=== PATIENT | female | born 1935 | race Caucasian/White ===

== ENCOUNTER → 2024-01-20 11:32 | Outpatient (REF) | payer MEDICARE, OTHER, SELFPAY ==
[2024-01-20 13:01] LABS: Blood Urea Nitrogen 27 mg/dl (7-17); Calcium 9.5 mg/dl (8.4-10.2); Carbon Dioxide 26 mmol/L (22-30); Chloride 104 mmol/L (98-107); Glucose 102 mg/dl (70-99); Potassium 4.6 mmol/L (3.5-5.1); Sodium 139 mmol/L (135-145); eGFR 30.83
== END ==
LOC: REG 11:32
PROVIDERS: ATTENDING PHYSICIAN Nurse Practitioner Adult Health
DX: I10 Essential (primary) hypertension (principal)
CPT/HCPCS: 36415; 80048

== ENCOUNTER 2024-06-12 23:06 | Observation (INO) | payer MEDICARE, OTHER, SELFPAY ==
[2024-06-12 18:25] VITALS: BMI 23.1
[2024-06-12 18:27] VITALS: BP 198/85
--- NOTE | 2024-06-12 19:41 | ED.GENMED ---
History of Present Illness
<Clemencia Duke PA-C - Last Filed: 06/12/24 23:45>
General
Chief Complaint: Musculo-Skeletal Complaint
Source: patient
Exam Limitations: none
Time Seen by Provider: 06/12/24 19:39
Nursing documentation reviewed up to this point in time: agreed with
History of Present Illness
History of Present Illness:
This is a 88 y/o female with a PMH of CAD, HTN, GERD, diverticulitis presenting to the emergency department with concerns of left low back pain radiating into the left hip. This pain started 5 days ago. Patient does not have a lot of pain at rest
but has significant pain with ambulating. Patient has been alternating Tylenol and Advil for the past 3 days with no relief. Patient states that she has no history of falls, trauma to the area. Patient resides in a duplex with her disabled son and
states that when she tries to go up the stairs, she has significant pain. Her bedroom is on the second floor and in order to get into her home at all, she has to climb a flight of stairs. Patient states that she has no pain at rest lying in bed
but will come on when ambulating. Patient denies any weakness, lightheadedness, dizziness. Patient denies any chest pain or shortness of breath. Patient denies any dysuria, hematuria. Patient denies any saddle paresthesias, new urinary
incontinence, fecal incontinence. Patient denies recent IV infusions, injections, orthopedic surgery, fevers or chills.
Past History
<Clemencia Duke PA-C - Last Filed: 06/12/24 23:45>
Past History
ED Past Medical History: CAD, HTN, Hypercholesterolemia, NIDDM and Other (Anemia)
ED Past Surgical History: Cholecystectomy, Urological (Kidney stents X3 on R and one in the L,) and Other (tubal, Carotid endarterectomy)
Social History
Tobacco: Former smoker
Alcohol: Occasional
Drug: None
Personal:
Living: with family
Employment: Retired
Family History
Family History: Other (Noncontributory)
Review of Systems
<Clemencia Duke PA-C - Last Filed: 06/12/24 23:45>
Review of Systems
All Other Systems: ROS reviewed and negative except as documented in HPI and ROS
Phy Exam
<Clemencia Duke PA-C - Last Filed: 06/12/24 23:45>
Physical Exam
Physical Exam:
General: Patient is well appearing and in no acute distress; non-toxic
Skin: Warm and dry, scattered areas of ecchymosis on the left lateral thigh
Head: Normocephalic, atraumatic
Eyes: Sclera non-icteric. EOMs intact. PERRLA.
Cardiac: Regular rate
Peripheral Vascular: No lower extremity swelling or
Pulm: Normal respiratory effort
Abdomen: No abdominal tenderness to palpation
Musculoskeletal: No pain with full passive range of motion of the left hip. 2+ dorsalis pedis pulses bilaterally. Mild midline tenderness palpation of the lumbar spine and paralumbar muscles.
Neuro: CN II-XII intact, no focal neurologic deficits.
Psychiatric: Appropriate mood and affect.
Course
<Clemencia Duke PA-C - Last Filed: 06/12/24 23:45>
Orders/Labs/Results
Orders:
Orders
06/12/24 18:59
Hip, Left 2-3 Views [CR Hip - LT w/wo Pel 2-3 Vw*] Urgent
Comment:
Reason For Exam: hip pain
Include a pelvis x-ray?: Yes
06/12/24 19:58
CR Lumbar Spine 2 Or 3 Views Urgent
Comment:
Reason For Exam: lower back pain
06/12/24 21:54
Complete Blood Count/With Diff Urgent
Comprehensive Metabolic Panel Urgent
06/12/24 22:13
Carvedilol [Coreg] 6.25 mg PO NOW STA
06/12/24 22:25
Admit/Transfer Patient As Directed
Co-Sign Provider:
Level of Care: Observation services
Assign to:: Medical/Surgical
Physician / Group: dalia
Diagnosis: hip pain
06/12/24 22:26
Code Status As Directed
Resuscitation Status: Full Code
Abnormal Lab Results
06/12/24
21:54
RBC 3.91 L 10^6/uL
(4.20-5.40)
Hgb 11.9 L g/dL
(12.0-16.0)
Hct 35.0 L %
(37.0-47.0)
Absolute Monos (auto) 0.7 H 10^3/uL
(0.1-0.6)
Chloride 108 H mmol/L
(98-107)
BUN 40 H mg/dl
(7-17)
Creatinine 1.9 H mg/dL
(0.6-1.0)
06/12/24 21:54
06/12/24 21:54
Vital Signs
Initial and Last Documented VS:
Initial Vital Signs
Temp Pulse Resp BP Pulse Ox
97.9 F 71 18 198/85 95
06/12/24 18:27 06/12/24 18:27 06/12/24 18:27 06/12/24 18:27 06/12/24 18:27
Last Documented Vital Signs
Temp Pulse Resp BP Pulse Ox
97.9 F 77 22 202/81 99
06/12/24 18:27 06/12/24 22:36 06/12/24 21:30 06/12/24 22:36 06/12/24 21:30
[place];Heron Garcia DO - Last Filed: 06/12/24 21:32>
Orders/Labs/Results
Orders:
Orders
06/12/24 18:59
Hip, Left 2-3 Views [CR Hip - LT w/wo Pel 2-3 Vw*] Urgent
Comment:
Reason For Exam: hip pain
Include a pelvis x-ray?: Yes
06/12/24 19:58
CR Lumbar Spine 2 Or 3 Views Urgent
Comment:
Reason For Exam: lower back pain
06/12/24 21:54
Complete Blood Count/With Diff Urgent
Comprehensive Metabolic Panel Urgent
06/12/24 22:13
Carvedilol [Coreg] 6.25 mg PO NOW STA
06/12/24 22:25
Admit/Transfer Patient As Directed
Co-Sign Provider:
Level of Care: Observation services
Assign to:: Medical/Surgical
Physician / Group: dalia
Diagnosis: hip pain
06/12/24 22:26
Code Status As Directed
Resuscitation Status: Full Code
Abnormal Lab Results
06/12/24
21:54
RBC 3.91 L 10^6/uL
(4.20-5.40)
Hgb 11.9 L g/dL
(12.0-16.0)
Hct 35.0 L %
(37.0-47.0)
Absolute Monos (auto) 0.7 H 10^3/uL
(0.1-0.6)
Chloride 108 H mmol/L
(98-107)
BUN 40 H mg/dl
(7-17)
Creatinine 1.9 H mg/dL
(0.6-1.0)
06/12/24 21:54
06/12/24 21:54
Vital Signs
Initial and Last Documented VS:
Initial Vital Signs
Temp Pulse Resp BP Pulse Ox
97.9 F 71 18 198/85 95
06/12/24 18:27 06/12/24 18:27 06/12/24 18:27 06/12/24 18:27 06/12/24 18:27
Last Documented Vital Signs
Temp Pulse Resp BP Pulse Ox
97.9 F 77 22 202/81 99
06/12/24 18:27 06/12/24 22:36 06/12/24 21:30 06/12/24 22:36 06/12/24 21:30
<Clemencia Duke PA-C - Last Filed: 06/12/24 23:45>
MDM/Problems Addressed
Differential Diagnosis Includes:
Differentials include sciatica, gluteus sherry muscle strain, osteoarthritis, herniated nucleus pulposus, ligamentous injury
MDM/Problems Addressed:
Hip pain:
This is a 88 y/o female with a PMH of CAD, HTN, GERD, diverticulitis presenting to the emergency department with concerns of left low back pain radiating into the left hip. This pain started 5 days ago. Patient does not have a lot of pain at rest
but has significant pain with ambulating. Patient has been alternating Tylenol and Advil for the past 3 days with no relief. Patient states that she has no history of falls, trauma to the area. On exam, she has no pain with full passive range of
motion of the hip. We ambulated with her but she is very unsteady on her fee Considering patient has declined stairs to get to her home and feels very unsteady, we will keep her overnight for physical therapy and case management evaluation in the
morning. Her x-rays demonstrate mild degenerative changes of the left hip with no evidence of acute fracture or dislocation, and multilevel degenerative changes of the spine but no new fracture. Patient referred to hospitalist for admission.
Chronic conditions affecting care:
Osteoarthritis, coronary artery disease, hypertension, hyperlipidemia, diabetes
Acute Exacerbation and/or Progression of Chronic Illness:
osteoarthritis
<Clemencia Duke PA-C - Last Filed: 06/12/24 23:45>
*Radiology
Radiology exam reviewed: preliminary read by ED provider (Questionable compression fracture of the spine, no acute fracture or dislocation in the hip)
*Pulse Oximetry
Patient hypoxic: no
*Critical Care Note
Total Time (30-74mins, 75-104mins- exclusive of procedures): Not Applicable
Data Reviewed
Review of Other/Old Records Reveals: Records (Reviewed ER physician documentation from 10/26/2021)
Source: patient and records
Prescriptions/Medications Considered But Not Given:
considered medication for pain but patient states that she is comfortable at rest at this time
Further Testing Considered But Not Given:
n/a
<Clemencia Duke PA-C - Last Filed: 06/12/24 23:45>
Patient Management
Escalation/DeEscalation of care consider admission/obs:
admit indicated
ED Attending Note
<Clemencia Duke PA-C - Last Filed: 06/12/24 23:45>
-
Portions of this chart may have been created with voice recognition software.� Occasional wrong word or��sound alike� substitutions may have occurred due to the inherent limitations of voice recognition software.
<Heron Garcia DO - Last Filed: 06/12/24 21:32>
ED Attending Note
Patient seen and examined by attending physician: Yes
I performed the substantive portion of visit, reviewed & personally made and approve the management plan that is documented in note by myself or GENE.: Yes
ED Attending Note:
Patient is an 88-year-old female presents to the emergency department complaining of low back pain radiating down into her left lower extremity and being unsteady and unable to climb stairs really walk without assistance. Pain started approximately
5 days ago and has gotten progressively worse. Patient denies any previous history of similar pain or incident. Patient did have back surgery after falling few years ago. Patient denies fever or chills. Patient denies numbness paresthesias.
Physical exam patient has mild tenderness in the left buttock. No hip tenderness and hip range of motion is full. Patient walking is very unsteady and has difficulty. Patient is unable to ambulate without assistance. Patient does live in a 4
level split-level with her disabled 57-year-old son. Patient has extensive osteoporosis and osteoarthritis. Given the patient's essentially nonambulatory status will admit for placement since unable to place the patient now.
Discharge Plan
Departure
Patient Disposition: Admit
Date of Disposition: 06/12/24
Time of Disposition: 21:26
Presentation/result/management discussed w/ accepting MD/DO: Hospitalist
Patient with high blood pressure during this ER visit?: Yes
Condition: Fair
Discharge Problem:
Ambulatory dysfunction, Osteoarthritis
Interventions
Interventions:
*General Assessment Last Done: 06/12/24 18:27
ED- Fall Risk Assessment Last Done: 06/12/24 19:26
*ED COVID-19 Vaccine History Last Done: 06/12/24 18:27
ED-Musculoskeletal Assessment Last Done: 06/12/24 19:26
[2024-06-12 21:30] VITALS: BP 202/81
[2024-06-12 21:58] LABS: % Basophils 0.8 % (0-2); % Eosinophils 4.6 % (0-6); % Immature Granulocytes 0.2 % (0-0.5); % Monocytes 8.6 % (1.7-9.3); % Neutrophils 63.8 % (42.2-75.2); Absolute Basophils 0.1 10^3/uL (0-0.2); Absolute Eosinophils 0.4 10^3/uL (0-0.7); Absolute Lymphocytes 1.8 10^3/uL (1.2-3.4); Absolute Monocytes 0.7 10^3/uL (0.1-0.6); Absolute Neutrophils 5.3 10^3/uL (1.4-6.5); Hemoglobin 11.9 g/dL (12.0-16.0); Mean Corpuscular Hgb 30.4 pg (27.0-31.0); Mean Corpuscular Volume 89.5 fL (81.0-99.0); Mean Platelet Volume 9.7 fL (7.4-10.4); Nucleated Red Blood Cells % 0 %; Platelet Count 200 10^3/uL (130-400); Red Blood Cell Count 3.91 10^6/uL (4.20-5.40); Red Cell Dist. Width 14.3 % (11.5-14.5); White Blood Cell Count 8.3 10^3/uL (4.8-10.8)
--- NOTE | 2024-06-12 22:01 | HPS.HSE ---
Addendum entered and electronically signed by Lazaro Siddiqi DO 06/12/24 23:41:
Patient seen and examined independently. Agree with findings and plan as set forth by FABI Martinez.
Patient is an 88y F with PMH significant for ASCVD, hypertension and dyslipidemia who presents to ED complaining of L low back / buttock pain. Patient states that symptoms started on Saturday evening. She denies any specific injury or trauma
prior to onset of her pain. Patient states that pain is over the L buttock with radiation down the entire LLE and into the foot / toes. Pain is much less severe when at rest / supine but is most notable when standing / bearing weight on the LLE.
Patient has been unable to ambulate as a result of her symptoms.
Ass:
L Hip Pain
Ambulatory Dysfunction secondary to the above
ASCVD
Benign Hypertension
Anxiety / Depression
GERD
CKD III
Plan:
Observe overnight for further evaluation and treatment.
Pain control, PT / OT evaluations.
Imaging done in the ED so far is unremarkable.
Continue usual outpatient medications without changes.
Original Note:
Family Physician
-
Family Physician: Chacorta Solis
Chief Complaint
-
left hip pain
History of Present Illness
88-year-old management of a history of coronary artery disease, hypertension, hyperlipidemia presented to us with left lower back pain radiating to her left hip and left lower extremities for past 5 days. Patient denied any trauma. Patient cannot
place any pressure on her leg. She is not able to walk because of the pain. Denied headache dizziness or syncopal episode. Patient denied fever, chills, chest pain short of breath. Patient denied abdominal pain, nausea, vomiting, diarrhea.
Patient denied dysuria hematuria
Admitting for further management
Medical History
Past Medical History
Past Medical History: Reports Other
Additional Past Medical History:
Coronary artery disease
Hypertension
Hyperlipidemia
Spinal stenosis
Major depression
Anxiety
Past Surgical History: Reports Other
Additional Past Surgical History:
Cholecystectomy
Carotid endarterectomy
Tonsillectomy
Adenoidectomy
Social History
Tobacco: Non-smoker
Alcohol: None
Drug: None
Personal: Single
Living: With Family
Family History
Family History: Not pertinent
Allergies / Home Medications
Allergies reflects when Allergies were last updated in [facility].
Home Medications with original date entered in [facility]
Allergy/Medication List:
Allergies
Allergy/AdvReac Type Severity Reaction Status Date / Time
cefuroxime axetil Allergy Intermediate Rash Verified 06/12/24 18:29
[From Ceftin]
codeine Allergy Hives Verified 06/12/24 18:29
Iodinated Contrast Media Allergy Hives Verified 06/12/24 18:29
[IV Dye, Iodine Containing
Contrast ]
iodine Allergy Hives Verified 06/12/24 18:29
shellfish derived Allergy Unknown Verified 06/12/24 18:29
spironolactone Allergy Itching Verified 06/12/24 18:29
[From Aldactone]
Home Medications
rosuvastatin 10 mg tablet 10 mg PO DAILY@1200 High cholesterol 07/03/12
aripiprazole 2 mg tablet 2 mg PO HS ##30 02/10/16
Bifidobacterium infantis 4 mg capsule (Align) 4 mg PO HS Gastrointestinal issue 05/03/20
acetaminophen 325 mg tablet 325 mg PO Q4HPRN PRN mild pain 05/03/20
cholecalciferol (vitamin D3) 25 mcg (1,000 unit) tablet 1,000 units PO DAILY@1200 Supplement 05/03/20
latanoprost 0.005 % eye drops 1 drp LEFT EYE HS Eye condition 05/03/20
mirtazapine 15 mg tablet 7.5 mg PO HS Sleep 05/03/20
pantoprazole 40 mg tablet,delayed release 40 mg PO DAILY Gastrointestinal issue 05/03/20
venlafaxine 25 mg tablet 25 mg PO BID Mental Health/Anxiety 05/03/20
vit C 250 mg-vit E 90 mg-zinc 40 mg-copper 1 xi-pucidp-qlycge capsule (PreserVision AREDS-2) 1 ea PO BID Supplement 05/03/20
amlodipine 10 mg tablet (Norvasc) 10 mg PO DAILY #30 tabs 05/07/20
aspirin 81 mg tablet,delayed release 1 tab PO DAILY Blood clot prevention/tx ##30 05/07/20
carvedilol 6.25 mg tablet 6.25 mg PO BID #60 tabs 05/07/20
clopidogrel 75 mg tablet 75 mg PO DAILY@1200 Blood clot prevention/tx ##0 05/07/20
docusate sodium 100 mg capsule 100 mg PO BID 05/07/20
polyethylene glycol 3350 17 gram oral powder packet 17 grams PO DAILY 05/07/20
methylprednisolone 4 mg tablets in a dose pack (Medrol (Grant)) See Rx Instructions PO .COMPLEX #21 ea 06/12/24
oxycodone-acetaminophen 5 mg-325 mg tablet (Percocet) 1 tab PO Q6HPRN PRN pain #8 tabs 06/12/24
Review of Systems
-
Constitutional: Reports No Symptoms
EENT: Reports No Symptoms
Respiratory: Reports No Symptoms
Cardiac: Reports No Symptoms
Abdomen/GI: Reports No Symptoms
: Reports No Symptoms
Musculoskeletal: Reports Other (Left sided hip pain radiating to her left lower extremities)
Skin: Reports No Symptoms
Neurological: Reports No Symptoms
Endocrine: Reports No Symptoms
Hematologic/Lymphatic: Reports No Symptoms
Psych: Reports No Symptoms
Physical Exam
Vital Signs
Vital Signs
Temp Pulse Resp BP Pulse Ox
97.9 F 77 22 202/81 99
06/12/24 18:27 06/12/24 21:30 06/12/24 21:30 06/12/24 21:30 06/12/24 21:30
Physical Exam
General: Well Developed, Well Nourished and No Apparent Distress
HEENT: NormoCephalic, Moist mucous membranes and Atraumatic
Respiratory: Clear
Cardiac: S1/S2 and Regular Rhythm; No Murmur or Rub
GI: Soft, Non Tender, Non Distended and Normal Bowel Sounds; No Organomegaly
Rectal: Deferred by Provider
Musculoskeletal: No Clubbing, No Cyanosis and No Edema
Skin: No Rash
Neuro: AO x 3 and Nonfocal/grossly intact
Psych: Calm
Data Reviewed
-
Diagnostic Radiology: Report Reviewed by me
CT Scan: Report Reviewed by me
Lab Data: Labs Reviewed by me
Impression/Plan
-
# Left hip pain
-Lumbar spine x-ray with impression postoperative and multilevel degenerative changes of the lumbar spine without acute fracture or complication. Mild degenerative changes of the left hip.
-Hip x-ray with impression of Postoperative and multilevel degenerative changes of the lumbar spine without acute fracture or complication. Mild degenerative changes of the left hip.
-PT/OT consulted
-lidocaine patch
-Tylenol ATC
#Hypertension
-BP elevated in ER
-Coreg 6.25 now
-Coreg, losartan continued with hold parameters
#Hyperlipidemia
-Crestor continued
#Depression and anxiety
- Continue home medication of Abilify and venlafaxine
#GERD
-Protonix
#s/p carotid endarterectomy
-Plavix continued
#CKD stage 3b
-cr 1.9
-ctm
#DVT Prophylaxis
-Lovenox
#CODE status
-full code
[2024-06-12 22:17] LABS: ALT (SGPT) 15 U/L (0-35); AST (SGOT) 24 U/L (14-36); Albumin 4.3 g/dl (3.5-5.0); Alkaline Phosphatase 74 U/L (38-126); Blood Urea Nitrogen 40 mg/dl (7-17); Calcium 9.7 mg/dl (8.4-10.2); Carbon Dioxide 24 mmol/L (22-30); Chloride 108 mmol/L (98-107); Estimated Creatinine Clearance 18 ml/min; Glucose 99 mg/dl (70-99); Potassium 4.8 mmol/L (3.5-5.1); Sodium 140 mmol/L (135-145); Total Bilirubin 0.4 mg/dl (0.2-1.3); Total Protein 7.1 g/dl (6.3-8.2); eGFR 25.08
[2024-06-12] MEDS: COREG 6.25 MG PO (22:36)
[2024-06-12 23:50] VITALS: BP 169/84
[2024-06-12 23:56] VITALS: BP 180/90; BMI 22.2
--- NOTE | 2024-06-13 00:27 | PTCARENOTE ---
Patient admitted from ED. Patient AAO x2, disoriented to time. Patient in no acute distress, no complaints of pain at this time, on RA. Will continue to monitor. Patient oriented to room and call palacios within reach.
[2024-06-13] MEDS: LIDOCAINE 4% PATCH 1 PATCH TOPICAL ×2 (00:47→08:11)
[2024-06-13 02:06] VITALS: BP 147/72
[2024-06-13] MEDS: TYLENOL 650 MG PO (06:23)
[2024-06-13 06:59] VITALS: BP 145/78
[2024-06-13] MEDS: PROTONIX 40 MG PO (08:08)
[2024-06-13] MEDS: EFFEXOR 50 MG PO (08:08)
[2024-06-13] MEDS: NORVASC 10 MG PO (08:09)
[2024-06-13] MEDS: CRESTOR 10 MG PO (08:09)
[2024-06-13] MEDS: COZAAR 100 MG PO (08:09)
[2024-06-13] MEDS: COREG 6.25 MG PO (08:09)
[2024-06-13] MEDS: HEPARIN 5000 UNITS SC ×2 (08:10→20:31)
[2024-06-13] MEDS: TYLENOL PO (08:11)
[2024-06-13] MEDS: MIRALAX 17 GRAMS PO (08:11)
[2024-06-13 08:31] LABS: Hematocrit 32.2 % (37.0-47.0); Hemoglobin 10.8 g/dL (12.0-16.0); Mean Corp Hgb Conc. 33.5 g/dL (33.0-37.0); Mean Corpuscular Hgb 30.6 pg (27.0-31.0); Mean Corpuscular Volume 91.2 fL (81.0-99.0); Platelet Count 191 10^3/uL (130-400); Red Blood Cell Count 3.53 10^6/uL (4.20-5.40); Red Cell Dist. Width 14.1 % (11.5-14.5); White Blood Cell Count 5.9 10^3/uL (4.8-10.8)
[2024-06-13 09:10] LABS: Blood Urea Nitrogen 34 mg/dl (7-17); Calcium 9.5 mg/dl (8.4-10.2); Carbon Dioxide 22 mmol/L (22-30); Chloride 110 mmol/L (98-107); Estimated Creatinine Clearance 21 ml/min; Glucose 88 mg/dl (70-99); Potassium 4.7 mmol/L (3.5-5.1); Sodium 140 mmol/L (135-145); eGFR 28.67
[2024-06-13 09:58] VITALS: BP 108/66; BP 128/81; PULSE 85; O2SAT 98
--- NOTE | 2024-06-13 10:53 | W.PN.HOSP.TC ---
Today's Communication/Plan
-
bolus
trial low dose Gabapentin
Assessment / Plan
Assessment / Plan
Patient is an 88y F with PMH significant for ASCVD, hypertension and dyslipidemia who presents to ED complaining of L low back / buttock pain. Patient states that symptoms started on Saturday evening. She denies any specific injury or trauma
prior to onset of her pain. Patient states that pain is over the L buttock with radiation down the entire LLE and into the foot / toes. Pain is much less severe when at rest / supine but is most notable when standing / bearing weight on the LLE.
Patient has been unable to ambulate as a result of her symptoms.
HIP X-RAY
IMPRESSION:
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
Mild degenerative changes of the left hip.
L Hip Pain
Ambulatory Dysfunction secondary to the above
Sciatica
-standing tylenol
-PT/OT - SNF recommended
-trial low dose gabapentin this evening
Orthostatic Hypotension
-this AM with PT - will give one small bolus
ASCVD
Benign Hypertension
-DOCUMENTATION ENGINEER Amlodipine, Coreg, Losartan
-DOCUMENTATION ENGINEER Plavix
Anxiety / Depression
-DOCUMENTATION ENGINEER Venlafaxine
-DOCUMENTATION ENGINEER Aripiprazole
-DOCUMENTATION ENGINEER Remeron
GERD
-DOCUMENTATION ENGINEER PPI
CKD III
-creatinine stable
DVT PPx
FULL CODE
Anticipated Discharge: 24 - 48 hours
Subjective/Interval History
-
Date of Service: June 13, 2024
pain with ambulation
eating and drinking OK
Objective Data
-
Labs:
Laboratory Results
06/13/24
06:55
WBC 5.9
Hgb 10.8 L
Hct 32.2 L
Plt Count 191
Sodium 140
Potassium 4.7
Chloride 110 H
Carbon Dioxide 22
BUN 34 H
Creatinine 1.7 H
Glucose 88
Calcium 9.5
Vital Signs:
Vital Signs
Temp Pulse Resp BP Pulse Ox
98.7 F 78 20 145/78 93
06/13/24 06:59 06/13/24 06:59 06/13/24 06:59 06/13/24 06:59 06/13/24 06:59
Review of Systems
-
History Source: Patient
All other systems: Reviewed and negative
Physical Exam
-
General: No Apparent Distress
HEENT: PERRLA
Respiratory: Clear to Auscultation; Negative Wheezes
Cardiac: S1/S2
GI: Soft and Nontender
Musculoskeletal: No Edema
Skin: Warm and Dry; Negative Rash
Neuro: AO x 3
Psych: Calm
Data Reviewed
-
Diagnostic Radiology: Report Reviewed by me
Labs: Labs Reviewed by me
[2024-06-13] MEDS: PLAVIX 75 MG PO (13:54)
[2024-06-13] MEDS: NSS 500 IV (13:54)
[2024-06-13 15:33] VITALS: BP 132/67
--- NOTE | 2024-06-13 15:59 | CM ---
Addendum entered by Iveth Pierre 06/13/24 16:10:
Call from [employer]- unable to look into [employer] waiver eligibility
Will need to check with [employer] on Saturday
Original Note:
CM met with pt and ANDREW/Esteban bedside
Pt resides with her adult disabled son in a split level home
0STE, 5 steps up to main living area and 5 steps up to bed/full bath
Pt utilizes a WW or SPC while in the community/furniture surfs throughout her home
PCP- Chacorta Solis
Rx- Brandyn-On
Pt os OBS- KELLY notice verbally reviewed
Copy provided
PT following with SNF recommendations
Call to dtr/Darlene who is primary contact for dc planning
Aware of private pay for SNF
Dtr requesting referrals to 1). [facility] 2). [facility] [place] 3). [facility] 4). [facility]
Message left for [facility] to inquire if pt qualifies for [employer] waiver
Awaiting response
Of note, son is not able to assist with physical tasks- hx of stroke with limited use of arm
Discharge Disposition- SNF
[2024-06-13] MEDS: TYLENOL 1000 MG PO ×2 (16:45→22:40)
[2024-06-13] MEDS: COREG PO (20:44)
[2024-06-13] MEDS: ABILIFY 2 MG PO (22:40)
[2024-06-13] MEDS: NEURONTIN 100 MG PO (22:40)
[2024-06-13] MEDS: REMERON 7.5 MG PO (22:43)
[2024-06-13 23:15] VITALS: BP 131/58
[2024-06-14 07:25] VITALS: BP 145/74
[2024-06-14 08:27] LABS: Blood Urea Nitrogen 36 mg/dl (7-17); Calcium 9.5 mg/dl (8.4-10.2); Carbon Dioxide 20 mmol/L (22-30); Chloride 110 mmol/L (98-107); Estimated Creatinine Clearance 21 ml/min; Glucose 86 mg/dl (70-99); Potassium 4.6 mmol/L (3.5-5.1); Sodium 138 mmol/L (135-145); eGFR 28.67
[2024-06-14] MEDS: TYLENOL 1000 MG PO ×3 (09:08→22:40)
[2024-06-14] MEDS: COZAAR 100 MG PO (09:08)
[2024-06-14] MEDS: CRESTOR 10 MG PO (09:09)
[2024-06-14] MEDS: HEPARIN 5000 UNITS SC ×2 (09:09→19:30)
[2024-06-14] MEDS: EFFEXOR 50 MG PO (09:09)
[2024-06-14] MEDS: COREG 6.25 MG PO ×2 (09:09→19:29)
[2024-06-14] MEDS: PROTONIX 40 MG PO (09:09)
[2024-06-14] MEDS: NORVASC 10 MG PO (09:09)
[2024-06-14] MEDS: LIDOCAINE 4% PATCH 1 PATCH TOPICAL (09:10)
[2024-06-14] MEDS: MIRALAX 17 GRAMS PO (09:11)
--- NOTE | 2024-06-14 09:43 | W.PN.HOSP.TC ---
Today's Communication/Plan
-
dispo planning
Assessment / Plan
Assessment / Plan
Patient is an 88y F with PMH significant for ASCVD, hypertension and dyslipidemia who presents to ED complaining of L low back / buttock pain. Patient states that symptoms started on Saturday evening. She denies any specific injury or trauma
prior to onset of her pain. Patient states that pain is over the L buttock with radiation down the entire LLE and into the foot / toes. Pain is much less severe when at rest / supine but is most notable when standing / bearing weight on the LLE.
Patient has been unable to ambulate as a result of her symptoms.
HIP X-RAY
IMPRESSION:
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
Mild degenerative changes of the left hip.
L Hip Pain
Ambulatory Dysfunction secondary to the above
Sciatica
-standing tylenol
-PT/OT - SNF recommended
-trial low dose gabapentin. patient states she feels a little groggy this morning but pain improved- keep at low dose
Orthostatic Hypotension
-s/p small bolus
-continue Andrade hose
-patient eating and drinking OK. she is actually hypertensive - continue home med regimen
ASCVD
Benign Hypertension
-AIR TRAFFIC CONTROL EQUIPMENT REPAIRER Amlodipine, Coreg, Losartan
-AIR TRAFFIC CONTROL EQUIPMENT REPAIRER Plavix
Anxiety / Depression
-AIR TRAFFIC CONTROL EQUIPMENT REPAIRER Venlafaxine
-AIR TRAFFIC CONTROL EQUIPMENT REPAIRER Aripiprazole
-AIR TRAFFIC CONTROL EQUIPMENT REPAIRER Remeron
GERD
-AIR TRAFFIC CONTROL EQUIPMENT REPAIRER PPI
CKD III
-creatinine stable
DVT PPx
FULL CODE
Anticipated Discharge: 24 - 48 hours
Subjective/Interval History
-
Date of Service: June 14, 2024
feeling better this morning
pain improved
feels slightly groggy from the gabapentin
Objective Data
-
Labs:
Laboratory Results
06/14/24
05:53
Sodium 138
Potassium 4.6
Chloride 110 H
Carbon Dioxide 20 L
BUN 36 H
Creatinine 1.7 H
Glucose 86
Calcium 9.5
Vital Signs:
Vital Signs
Temp Pulse Resp BP Pulse Ox
98.4 F 76 18 145/74 93
06/14/24 07:25 06/14/24 09:08 06/14/24 07:25 06/14/24 09:08 06/14/24 07:25
I&O
06/13/24 06/14/24 06/15/24
06:59 06:59 06:59
Intake Total 720 / 720
Balance 720 / 720
Review of Systems
-
History Source: Patient
All other systems: Reviewed and negative
Physical Exam
-
General: No Apparent Distress
HEENT: PERRLA
Respiratory: Clear to Auscultation; Negative Wheezes
Cardiac: Regular Rhythm and S1/S2
GI: Soft and Nontender
Musculoskeletal: No Edema and Other (can flex b/l hips without pain )
Neuro: AO x 3
Psych: Calm
Data Reviewed
-
Diagnostic Radiology: Report Reviewed by me
Labs: Labs Reviewed by me
[2024-06-14] MEDS: PLAVIX 75 MG PO (11:11)
[2024-06-14 14:15] VITALS: BP 116/63; BP 147/86; PULSE 75; O2SAT 94
[2024-06-14 14:57] VITALS: BP 116/63; BP 147/86; PULSE 75; O2SAT 94
[2024-06-14 15:08] VITALS: BP 137/71
[2024-06-14] MEDS: ABILIFY 2 MG PO (22:40)
[2024-06-14] MEDS: NEURONTIN 100 MG PO (22:40)
[2024-06-14] MEDS: REMERON 7.5 MG PO (22:40)
[2024-06-14 23:34] VITALS: BP 124/61
[2024-06-15 07:25] VITALS: BP 143/78
[2024-06-15] MEDS: EFFEXOR 50 MG PO (08:50)
[2024-06-15] MEDS: COZAAR 100 MG PO (08:50)
[2024-06-15] MEDS: MIRALAX 17 GRAMS PO (08:50)
[2024-06-15] MEDS: NORVASC 10 MG PO (08:51)
[2024-06-15] MEDS: CRESTOR 10 MG PO (08:51)
[2024-06-15] MEDS: HEPARIN 5000 UNITS SC ×2 (08:51→20:19)
[2024-06-15] MEDS: PROTONIX 40 MG PO (08:51)
[2024-06-15] MEDS: COREG 6.25 MG PO ×2 (08:51→20:18)
[2024-06-15] MEDS: LIDOCAINE 4% PATCH 1 PATCH TOPICAL (08:53)
[2024-06-15] MEDS: TYLENOL 1000 MG PO ×3 (08:53→21:54)
--- NOTE | 2024-06-15 09:08 | W.PN.HOSP.TC ---
Today's Communication/Plan
-
Placement Pending
PT/OT
Assessment / Plan
Assessment / Plan
Physical Exam
General: No Apparent Distress
HEENT: Normocephalic
Respiratory: Clear to Auscultation Bilaterally
Cardiac: Regular Rhythm and S1/S2
GI: Soft and Nontender
Musculoskeletal: No Edema and Other (can flex b/l hips without pain )
Neuro: AO x 3
Psych: Calm
Assessment/Plan
Patient is an 88y F with PMH significant for ASCVD, hypertension and dyslipidemia who presents to ED complaining of L low back / buttock pain. Patient states that symptoms started on Saturday evening. She denies any specific injury or trauma
prior to onset of her pain. Patient states that pain is over the L buttock with radiation down the entire LLE and into the foot / toes. Pain is much less severe when at rest / supine but is most notable when standing / bearing weight on the LLE.
Patient has been unable to ambulate as a result of her symptoms.
HIP X-RAY
IMPRESSION:
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
Mild degenerative changes of the left hip.
L Hip Pain
Ambulatory Dysfunction secondary to the above
Sciatica
-standing tylenol
-PT/OT - SNF recommended
-trial low dose gabapentin - pain improved - keep at low dose
Orthostatic Hypotension
-s/p small bolus
-continue Andrade hose
-patient eating and drinking OK. she is actually hypertensive - continue home med regimen
ASCVD
Benign Hypertension
-TRUCK RENTAL MANAGER Amlodipine, Coreg, Losartan
-TRUCK RENTAL MANAGER Plavix
Anxiety / Depression
-TRUCK RENTAL MANAGER Venlafaxine
-TRUCK RENTAL MANAGER Aripiprazole
-TRUCK RENTAL MANAGER Remeron
GERD
-TRUCK RENTAL MANAGER PPI
CKD III
-creatinine stable
DVT PPx
FULL CODE
Anticipated Discharge: 24 - 48 hours
Subjective/Interval History
-
Date of Service: June 15, 2024
Patient was seen and examined. She denied any new symptoms or complaints.
Objective Data
-
Vital Signs:
Vital Signs
Temp Pulse Resp BP Pulse Ox
97.9 F 75 18 143/78 97
06/15/24 07:25 06/15/24 08:50 06/15/24 07:25 06/15/24 08:50 06/15/24 07:25
I&O
06/14/24 06/15/24 06/16/24
06:59 06:59 06:59
Intake Total 720 / 720 780 / 780
Balance 720 / 720 780 / 780
[2024-06-15 09:58] VITALS: BP 157/72; PULSE 65; O2SAT 97
[2024-06-15] MEDS: PLAVIX 75 MG PO (11:46)
[2024-06-15 15:11] VITALS: BP 119/51
[2024-06-15] MEDS: NEURONTIN 100 MG PO (21:54)
[2024-06-15] MEDS: REMERON 7.5 MG PO (21:54)
[2024-06-15] MEDS: ABILIFY 2 MG PO (21:54)
[2024-06-15 23:39] VITALS: BP 121/59
[2024-06-16 07:25] VITALS: BP 153/74
[2024-06-16] MEDS: HEPARIN 5000 UNITS SC ×2 (09:16→21:24)
[2024-06-16] MEDS: MIRALAX 17 GRAMS PO (09:16)
[2024-06-16] MEDS: LIDOCAINE 4% PATCH 1 PATCH TOPICAL (09:16)
[2024-06-16] MEDS: TYLENOL 1000 MG PO ×3 (09:18→21:24)
[2024-06-16] MEDS: COZAAR 100 MG PO (09:18)
[2024-06-16] MEDS: PROTONIX 40 MG PO (09:19)
[2024-06-16] MEDS: COREG 6.25 MG PO ×2 (09:19→21:24)
[2024-06-16] MEDS: CRESTOR 10 MG PO (09:19)
[2024-06-16] MEDS: EFFEXOR 50 MG PO (09:19)
[2024-06-16] MEDS: NORVASC 10 MG PO (09:19)
--- NOTE | 2024-06-16 09:41 | CM ---
Addendum entered by Ilene Prasad 06/16/24 16:26:
CM spoke with daughter (medical POA) and discussed options for SNF. She has chosen [facility] and will be in touch with them regarding payment which she reports is not an issue. [facility] also offered a bed later in the week, however
daughter prefers [facility] at this time.
SNF bed available tomorrow for transfer in the early afternoon.
CM to follow to facilitate transfer to [facility] when medically cleared. updated on plan.
Plan: Short term placement at [facility]
PCP: Chacorta Solis
Pharmacy: [facility] in [place]
Addendum entered by Ilene Prasad 06/16/24 14:26:
Lorna is not eligible for the [employer] waiver as previously noted. Daughter is aware of same and will pay privately for transfer to SNF. Will contact pt's daughter to discuss private pay rates - available facilities are [facility],
($491/day or $350/day if stays for 2 weeks).
[facility] is $390/day for private pay. [facility] does not anticipate an available bed in the next week or more.
Original Note:
IVAN spoke with pt's daughter, Darlene, late in the day yesterday to discuss transfer to SNF. Lorna does not have a 3 day IP stay to qualify for SNF, however she is eligible for the [employer] waiver for SNF admission. SNF options discussed;
daughter preferred [facility] which is not on the list. Her second choice is [facility].
Referral sent to [facility] and other facilities. [facility] called this am to check bed availability; there is no bed available at this time.
CM will contact pt's daughter this am to discuss other facilities.
Plan: CM to assist with SNF placement with [employer] Waiver when available bed found and pt/family agreeable to available facilities.
[2024-06-16] MEDS: PLAVIX 75 MG PO (11:31)
--- NOTE | 2024-06-16 14:44 | W.PN.HOSP.TC ---
Today's Communication/Plan
-
Placement Pending
Assessment / Plan
Assessment / Plan
Physical Exam
General: No Apparent Distress
HEENT: Normocephalic
Respiratory: Clear to Auscultation Bilaterally
Cardiac: Regular Rhythm and S1/S2
GI: Soft and Nontender
Musculoskeletal: No Edema and Other (can flex b/l hips with minimal pain )
Neuro: AO x 3
Psych: Calm
Assessment/Plan
Patient is an 88y F with PMH significant for ASCVD, hypertension and dyslipidemia who presents to ED complaining of L low back / buttock pain. Patient states that symptoms started on Saturday evening. She denies any specific injury or trauma
prior to onset of her pain. Patient states that pain is over the L buttock with radiation down the entire LLE and into the foot / toes. Pain is much less severe when at rest / supine but is most notable when standing / bearing weight on the LLE.
Patient has been unable to ambulate as a result of her symptoms.
HIP X-RAY
IMPRESSION:
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
Mild degenerative changes of the left hip.
L Hip Pain
Ambulatory Dysfunction secondary to the above
Sciatica
-standing tylenol
-PT/OT - SNF recommended
-trial low dose gabapentin - pain improved - keep at low dose
Orthostatic Hypotension
-s/p small bolus
-continue Andrade hose
-patient eating and drinking OK. she is actually hypertensive - continue home med regimen
ASCVD
Benign Hypertension
-MANAGER TRAINEE Amlodipine, Coreg, Losartan
-MANAGER TRAINEE Plavix
Anxiety / Depression
-MANAGER TRAINEE Venlafaxine
-MANAGER TRAINEE Aripiprazole
-MANAGER TRAINEE Remeron
GERD
-MANAGER TRAINEE PPI
CKD III
-creatinine stable
DVT PPx
FULL CODE
Anticipated Discharge: 24 - 48 hours
Subjective/Interval History
-
Date of Service: June 16, 2024
Patient was seen and examined. She reported no new symptoms or complaints.
Objective Data
-
Vital Signs:
Vital Signs
Temp Pulse Resp BP Pulse Ox
98.1 F 73 18 153/74 94
06/16/24 07:25 06/16/24 09:18 06/16/24 07:25 06/16/24 09:18 06/16/24 09:10
I&O
06/15/24 06/16/24 06/17/24
06:59 06:59 06:59
Intake Total 780 / 780 780 / 780
Balance 780 / 780 780 / 780
[2024-06-16 15:18] VITALS: BP 141/62
[2024-06-16 16:12] VITALS: BP 110/71; PULSE 78; O2SAT 95
[2024-06-16] MEDS: ABILIFY 2 MG PO (21:23)
[2024-06-16] MEDS: NEURONTIN 100 MG PO (21:23)
[2024-06-16] MEDS: REMERON 7.5 MG PO (21:24)
[2024-06-16 23:51] VITALS: BP 115/54
--- NOTE | 2024-06-17 02:58 | DOWNTIME ---
There was a [employer] Client Naturalization Examiner Downtime on 06/17/2024 from 0100 to 06/17/2024 at 0255. Downtime documentation of patient's care, including medication administrations, has been reconciled in the electronic record per guidelines. Refer to the
patient's paper chart under the miscellaneous tab to see printed paper medication records and downtime forms.
[2024-06-17 07:25] VITALS: BP 96/61
[2024-06-17] MEDS: MIRALAX 17 GRAMS PO (09:13)
[2024-06-17] MEDS: HEPARIN 5000 UNITS SC (09:13)
[2024-06-17] MEDS: EFFEXOR 50 MG PO (09:13)
[2024-06-17] MEDS: PROTONIX 40 MG PO (09:14)
[2024-06-17] MEDS: CRESTOR 10 MG PO (09:14)
[2024-06-17] MEDS: TYLENOL 1000 MG PO ×2 (09:14→15:42)
[2024-06-17] MEDS: LIDOCAINE 4% PATCH 1 PATCH TOPICAL (09:20)
[2024-06-17] MEDS: NORVASC PO (09:22)
[2024-06-17] MEDS: COREG PO (09:22)
[2024-06-17] MEDS: COZAAR PO (09:22)
[2024-06-17 12:17] VITALS: BP 167/73
[2024-06-17] MEDS: PLAVIX 75 MG PO (12:40)
--- NOTE | 2024-06-17 13:55 | W.PN.HOSP.TC ---
Today's Communication/Plan
-
Discharge today
Assessment / Plan
Assessment / Plan
Physical Exam
General: No Apparent Distress
HEENT: Normocephalic
Respiratory: Clear to Auscultation Bilaterally
Cardiac: Regular Rhythm and S1/S2
GI: Soft and Nontender
Musculoskeletal: No Edema and Other (can flex b/l hips with minimal pain )
Neuro: AO x 3
Psych: Calm
Assessment/Plan
Patient is an 88y F with PMH significant for ASCVD, hypertension and dyslipidemia who presents to ED complaining of L low back / buttock pain. Patient states that symptoms started on Saturday evening. She denies any specific injury or trauma
prior to onset of her pain. Patient states that pain is over the L buttock with radiation down the entire LLE and into the foot / toes. Pain is much less severe when at rest / supine but is most notable when standing / bearing weight on the LLE.
Patient has been unable to ambulate as a result of her symptoms.
HIP X-RAY
IMPRESSION:
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
Mild degenerative changes of the left hip.
L Hip Pain
Ambulatory Dysfunction secondary to the above
Sciatica
-standing tylenol
-PT/OT - SNF recommended
-trial low dose gabapentin - pain improved - keep at low dose
Orthostatic Hypotension
-s/p small bolus
-continue Andrade hose
-patient eating and drinking OK. she is actually hypertensive - continue home med regimen
ASCVD
Benign Hypertension
-AN/SYQ 13 NAV/C2 OPERATOR Amlodipine, Coreg, Losartan
-AN/SYQ 13 NAV/C2 OPERATOR Plavix
Anxiety / Depression
-AN/SYQ 13 NAV/C2 OPERATOR Venlafaxine
-AN/SYQ 13 NAV/C2 OPERATOR Aripiprazole
-AN/SYQ 13 NAV/C2 OPERATOR Remeron
GERD
-AN/SYQ 13 NAV/C2 OPERATOR PPI
CKD III
-creatinine stable
Posterior Spinal Fusion
Chronic severe L4 compression deformity
DVT Prophylaxis
FULL CODE
More than 30 minutes spent in discharge including
Final examination of the patient
Summarizing hospital stay
Instructions for continuing care to all relevant caregivers
Preparation of discharge records, prescriptions, and referral forms
Total time spent (in minutes): 40
Anticipated Discharge: Today
Subjective/Interval History
-
Date of Service: June 17, 2024
Patient was seen and examined. She reported no new symptoms or complaints.
Objective Data
-
Vital Signs:
Vital Signs
Temp Pulse Resp BP Pulse Ox
98 F 67 18 127/59 96
06/17/24 07:25 06/17/24 09:22 06/17/24 07:25 06/17/24 09:22 06/17/24 09:00
I&O
06/16/24 06/17/24 06/18/24
06:59 06:59 06:59
Intake Total 780 / 780 360 / 360
Balance 780 / 780 360 / 360
--- NOTE | 2024-06-17 13:56 | CM ---
Addendum entered by Ilene Prasad 06/17/24 15:53:
Transportation coordinated [facility] Acute [facility] with first available at 6:30pm. Pt, daughter, and [facility] advised of transfer/discharge time.
CM met with Lorna to update her on time of transportation. Daughter is concerned about no dinner being available with late arrival. I encouraged Lorna to order dinner prior to preparing for discharge and offered an ensure, as her daughter
advised that she enjoys them.
Plan: Transfer to [facility] today at 6:30pm.
Report: [phone]

Addendum entered by Ilene Prasad 06/17/24 14:43:
Physician documentation indicates discharge for today, still await discharge order.
Plan: Transfer to [facility] via w/c van pending discharge order.
Report: [phone]

Original Note:
Plan for discharge to [facility] today via w/c van pending discharge order. TT to Dr. [place] earlier today to advise of same; anticipating discharge order today per his TT response.
W/C van transport will be arranged once d/c order has been placed.
[2024-06-17 14:12] VITALS: BP 111/59; BP 140/70; PULSE 63; O2SAT 97
--- NOTE | 2024-06-17 14:54 | W.DS.TRANS ---
DC Summary - Residential Builder
-
Discharge Instructions:
Discharge Diagnosis/Procedures Lumbar spine radiculopathy
Mild degenerative changes of the left hip.
Left Hip Pain
Ambulatory Dysfunction secondary to the above
Sciatica
Orthostatic Hypotension
ASCVD
Benign Hypertension
Anxiety / Depression
Gastroesophageal Reflux Disease
CKD III
Posterior Spinal Fusion
Chronic severe L4 compression deformity
Diet Regular,Low Cholesterol,Low Sodium
Activity As tolerated
Driving Restrictions No driving
Bathing Restrictions None
Other Services PT,OT
Instructions:
Stand-Alone Forms:
Changes to Home Medications: Yes
Discharge Medications:
DC Medications w/original date entered in [facility]
cholecalciferol (vitamin D3) 25 mcg (1,000 unit) tablet 1,000 units PO DAILY@1200 Supplement 05/03/20
mirtazapine 15 mg tablet 7.5 mg PO HS Sleep 05/03/20
pantoprazole 40 mg tablet,delayed release 40 mg PO DAILY Gastrointestinal issue 05/03/20
venlafaxine 25 mg tablet 50 mg PO DAILY Mental Health/Anxiety 05/03/20
amlodipine 10 mg tablet (Norvasc) 10 mg PO DAILY #30 tabs 05/07/20
carvedilol 6.25 mg tablet 6.25 mg PO BID #60 tabs 05/07/20
clopidogrel 75 mg tablet 75 mg PO DAILY@1200 Blood clot prevention/tx ##0 05/07/20
aripiprazole 2 mg tablet 40 mg PO HS Mental Health/Anxiety 06/12/24
losartan 100 mg tablet 100 mg PO DAILY Blood Pressure 06/12/24
rosuvastatin 10 mg tablet 10 mg PO DAILY High Cholesterol 06/12/24
acetaminophen 500 mg tablet (Tylenol Extra Strength) 1,000 mg (2 x 500 mg) PO TID #10 tabs 06/17/24
aripiprazole 2 mg tablet 2 mg PO HS #30 tabs 06/17/24
gabapentin 100 mg capsule 100 mg PO HS #20 caps 06/17/24
lidocaine 4 % topical patch 1 patch topical DAILY #10 ea 06/17/24
polyethylene glycol 3350 17 gram oral powder packet (HealthyLax) 17 g PO DAILY #30 ea 06/17/24
Home Medication Changes
Tylenol 1000 mg TID, Gabapentin, Lidocaine Patch and HealthyLax are new medications.
Aripiprazole dose needs to be verified with patient's primary care provider.
Pending Results: No
Total time spent discharging patient (in min): 40
[2024-06-17 15:04] VITALS: BP 118/55
== END 2024-06-17 18:49 ==
LOC: 4 EAST ACU 23:06
PROVIDERS: Physician Assistant; Registered Nurse; ADMITTING PHYSICIAN Hospitalist; ATTENDING PHYSICIAN Hospitalist; EMERGENCY PHYSICIAN Emergency Medicine; FAMILY PHYSICIAN Nurse Practitioner Adult Health
DX: M51.16 Intervertebral disc disorders with radiculopathy, lumbar region (principal); M16.12 Unilateral primary osteoarthritis, left hip; I95.1 Orthostatic hypotension; M54.50 Low back pain, unspecified; I25.10 Atherosclerotic heart disease of native coronary artery without angina pectoris; N18.32 Chronic kidney disease, stage 3b; I12.9 Hypertensive chronic kidney disease with stage 1 through stage 4 chronic kidney disease, or unspecified chronic kidney disease; K21.9 Gastro-esophageal reflux disease without esophagitis; E11.22 Type 2 diabetes mellitus with diabetic chronic kidney disease; E78.00 Pure hypercholesterolemia, unspecified; M25.552 Pain in left hip; R26.2 Difficulty in walking, not elsewhere classified; M48.56XA Collapsed vertebra, not elsewhere classified, lumbar region, initial encounter for fracture; F41.9 Anxiety disorder, unspecified; F32.A Depression, unspecified; Z87.19 Personal history of other diseases of the digestive system; Z87.891 Personal history of nicotine dependence; Z90.49 Acquired absence of other specified parts of digestive tract; Z88.8 Allergy status to other drugs, medicaments and biological substances; Z88.1 Allergy status to other antibiotic agents; Z91.041 Radiographic dye allergy status; Z88.5 Allergy status to narcotic agent; Z91.013 Allergy to seafood; Z79.82 Long term (current) use of aspirin; Z79.02 Long term (current) use of antithrombotics/antiplatelets; Z98.1 Arthrodesis status
CPT/HCPCS: 72100; 73502; 80048; 80053; 85025; 85027; 97110; 97116; 97162; 97166; 97530; 99284; G0378

== ENCOUNTER 2024-07-08 07:08 | Emergency (ER) | payer MEDICARE, OTHER, SELFPAY ==
[2024-07-08 07:14] VITALS: BP 155/89
[2024-07-08 08:00] VITALS: BP 141/79
--- NOTE | 2024-07-08 08:14 | ED.GENMED ---
History of Present Illness
General
Chief Complaint: Weakness
Source: patient
Exam Limitations: none
Time Seen by Provider: 07/08/24 07:59
Nursing documentation reviewed up to this point in time: agreed with except (pt is not here for weakness, she is here for injury to her right ankle)
History of Present Illness
History of Present Illness:
89 yo female from home where she lives with her son is here for right ankle injury. States she got up yesterday to change the channel and she rolled her right ankle. She was not using her waker as directed. She did not fall. This a.m. went to get up
to go to the bathroom and couldn't walk due to pain. She crawled to her son's room to wake him, he helped her up and was able to get her to BR then to bed with her walker and much pain in the ankle with weight bearing.
EMS called.
Pt was admitted for ambulatory dysfunction due to L sciatica from 06/12-06/17 then to [facility], then home 10 days ago. States left hip and sciatic pain are improved but still there. Started P/T O/T yesterday.
Past History
Past History
ED Past Medical History: CAD, HTN, Hypercholesterolemia, NIDDM and Other (Anemia)
ED Past Surgical History: Cholecystectomy, Urological (Kidney stents X3 on R and one in the L,) and Other (tubal, Carotid endarterectomy)
Social History
Tobacco: Former smoker
Alcohol: Occasional
Drug: None
Personal:
Living: with family
Employment: Retired
Family History
Family History: Other (Noncontributory)
Review of Systems
Review of Systems
Allergies reviewed?: Yes
All Other Systems: ROS reviewed and negative except as documented in HPI and ROS
Constitutional: Denies fever
Respiratory: Denies trouble breathing
Cardiac: Denies chest pain
ABD/GI: Denies abdominal pain or nausea
: Reports incontinence (at times of stool and urine); Denies dysuria, frequency, difficulty voiding or urgency
Musculoskeletal: Reports other (L sciatica); Denies edema
Skin: Reports no symptoms
Neurological: Reports no symptoms
Phy Exam
Physical Exam
Physical Exam:
GENERAL: No acute distress. A&Ox3.
CONSTITUTIONAL: Afebrile.
EYES: PERRL, conjunctivae normal
ENMT: moist mucus membranes, Pharynx nl
RESPIRATORY: Regular respirations, nonlabored, lungs clear.
CARDIOVASCULAR: Regular rate and rhythm, no murmurs, no rubs.
GI: Soft, nontender, normal BS
MUSCULOSKELETAL: R ankle w mild swelling and tenderness laterally. Distal n/v intact. Moves with ease. Well perfused.
SKIN: Warm, dry, pink
PSYCH: Normal mood and affect. Well kept, interactive and appropriate
NEUROLOGIC: Awake, alert and oriented. No focal neurological deficits
Course
Orders/Labs/Results
Orders:
Orders
07/08/24 08:10
Ankle, Right 3 view CR [CR Ankle - Right Min 3 Views *] Urgent
Comment:
Reason For Exam: pain after twisting
07/08/24 08:42
Jay Wrap Right-Treatment ONCE
Vital Signs
Initial and Last Documented VS:
Initial Vital Signs
Temp Pulse Resp BP Pulse Ox
97.6 F 67 15 155/89 97
07/08/24 07:14 07/08/24 07:14 07/08/24 07:14 07/08/24 07:14 07/08/24 07:14
Last Documented Vital Signs
Temp Pulse Resp BP Pulse Ox
97.6 F 73 26 160/66 94
07/08/24 07:14 07/08/24 08:50 07/08/24 08:50 07/08/24 08:50 07/08/24 08:50
MDM/Problems Addressed
Differential Diagnosis Includes:
fracture vs sprain ankle
MDM/Problems Addressed:
89 yo female from home where she lives with her son is here for right ankle injury. States she got up yesterday to change the channel and she rolled her right ankle. She was not using her walker as directed. She did not fall. This a.m. went to get
up to go to the bathroom and couldn't walk due to pain. She crawled to her son's room to wake him, he helped her up and was able to get her to BR then to bed with her walker and much pain in the ankle with weight bearing.
EMS called.
Pt was admitted for ambulatory dysfunction due to L sciatica from 06/12-06/17 then to [facility], then home 10 days ago. States left hip and sciatic pain are improved but still there. Started P/T O/T yesterday.
Xray R ankle initially read by this examiner. No fracture.
Jay wrap and air splint applied, afterwards pt ambulated well with walker. Able to sit on chair and stand independently. Son with her, he lives with her and does not work. Has 10 steps inside. Son states he will be with her at all time on stairs.
Instructed to use good foot first going up. May have to sit and scoop up steps on her bottom if needed. They both understand and are comfortable going home. Son states they have 'all the equipment, hand rails, walker, canes, lifted toilet seat' etc.
Good home support.
Has home P/T in 2 days.
*Critical Care Note
Total Time (30-74mins, 75-104mins- exclusive of procedures): Not Applicable
ED Attending Note
-
Portions of this chart may have been created with voice recognition software.� Occasional wrong word or��sound alike� substitutions may have occurred due to the inherent limitations of voice recognition software.
Discharge Plan
Departure
Patient Disposition: Home (Routine Discharge)
Date of Disposition: 07/08/24
Time of Disposition: 08:47
Patient with high blood pressure during this ER visit?: No
Condition: Good
Discharge Problem:
Right ankle sprain
Instructions: Ankle Sprain ED
Prescriptions:
No Action
cholecalciferol (vitamin D3) 1,000 UNITS tablet
1,000 units PO DAILY@1200
venlafaxine 25 MG tablet
50 mg PO DAILY
pantoprazole 40 MG tablet,delayed release (DR/EC)
40 mg PO DAILY
mirtazapine 15 MG tablet
7.5 mg PO HS
carvedilol 6.25 MG tablet
6.25 mg PO BID Qty: 60 0RF
clopidogrel 75 MG tablet
75 mg PO DAILY@1200 Qty: 0 0RF
Rx Instructions:
Resume only after discussion with Primary allergist immunologist
amlodipine [Norvasc] 10 MG tablet
10 mg PO DAILY Qty: 30 0RF
losartan 100 mg Tablet
100 mg PO DAILY
rosuvastatin 10 mg Tablet
10 mg PO DAILY
aripiprazole 2 MG tablet
40 mg PO HS
aripiprazole 2 mg Tablet
2 mg PO HS Qty: 30 0RF
lidocaine 4 % Adhesive Patch,Medicated
1 patch topical DAILY Qty: 10 0RF
Rx Instructions:
Remove patch daily at 8 pm
polyethylene glycol 3350 [HealthyLax] 17 gram Powder In Packet
17 g PO DAILY Qty: 30 1RF
gabapentin 100 mg Capsule
100 mg PO HS Qty: 20 0RF
acetaminophen [Tylenol Extra Strength] 500 mg Tablet
1,000 mg PO TID Qty: 10 0RF
Referrals:
Chacorta Solis CRNP [Family Provider] -
Alesia Hall I., DO [Active] - As needed
Activity Restrictions/Additional Instructions:
As we discussed, be sure to use your walking assists such as walker or cane at all times when up and around.
Wear the jay wrap and air splint for up to 2 weeks as needed for pain, support, swelling. May remove them earlier if ankle feels better
See the orthopedic doctor if not a LOT BETTER in 2 weeks.
Cold compress 20 minutes off and on as much as you can today and tomorrow.
Interventions
Interventions:
*Risk Screen - Suicide Last Done: 07/08/24 07:20
*General Assessment Last Done: 07/08/24 07:19
*Neglect/Abuse Screening Last Done: 07/08/24 07:20
ED- Fall Risk Assessment Last Done: 07/08/24 07:22
*ED COVID-19 Vaccine History Last Done: 07/08/24 07:18
*Nursing Disposition Last Done: 07/08/24 09:13
ED- Cardiac Assessment Last Done: 07/08/24 07:21
ED- Neurological Assessment Last Done: 07/08/24 07:21
ED- Pulmonary Assessment Last Done: 07/08/24 07:21
Discharge Date and Time
Discharge Date/Time: 07/08/24 09:14
Print Language: SPANISH
[2024-07-08 08:50] VITALS: BP 160/66
== END 2024-07-08 09:14 | disposition home or self-care (01) ==
LOC: EMR 07:08
PROVIDERS: EMERGENCY PHYSICIAN Emergency Medicine; FAMILY PHYSICIAN Nurse Practitioner Adult Health
DX: S93.401A Sprain of unspecified ligament of right ankle, initial encounter (principal); X50.1XXA Overexertion from prolonged static or awkward postures, initial encounter; M54.32 Sciatica, left side; I25.10 Atherosclerotic heart disease of native coronary artery without angina pectoris; I10 Essential (primary) hypertension; E11.9 Type 2 diabetes mellitus without complications; E78.00 Pure hypercholesterolemia, unspecified; D64.9 Anemia, unspecified; M19.90 Unspecified osteoarthritis, unspecified site; F41.9 Anxiety disorder, unspecified; F32.A Depression, unspecified; Z90.49 Acquired absence of other specified parts of digestive tract; Z87.891 Personal history of nicotine dependence
CPT/HCPCS: 99283; 29515; 73610

== ENCOUNTER 2024-08-22 02:51 | Inpatient (IN) | payer MEDICARE, OTHER, SELFPAY ==
[2024-08-21 19:43] VITALS: BP 131/63
[2024-08-21 19:56] LABS: % Basophils 0.3 % (0-2); % Eosinophils 1.1 % (0-6); % Immature Granulocytes 0.3 % (0-0.5); % Lymphocytes 10.2 % (20.5-51.1); % Monocytes 6.2 % (1.7-9.3); % Neutrophils 81.9 % (42.2-75.2); Absolute Eosinophils 0.1 10^3/uL (0-0.7); Absolute Lymphocytes 0.7 10^3/uL (1.2-3.4); Absolute Monocytes 0.4 10^3/uL (0.1-0.6); Absolute Neutrophils 5.3 10^3/uL (1.4-6.5); Hematocrit 32.1 % (37.0-47.0); Hemoglobin 10.4 g/dL (12.0-16.0); Mean Corp Hgb Conc. 32.4 g/dL (33.0-37.0); Mean Corpuscular Hgb 30.1 pg (27.0-31.0); Nucleated Red Blood Cells % 0 %; Platelet Count 163 10^3/uL (130-400); Red Blood Cell Count 3.45 10^6/uL (4.20-5.40); Red Cell Dist. Width 13.8 % (11.5-14.5); White Blood Cell Count 6.4 10^3/uL (4.8-10.8)
[2024-08-21 20:26] LABS: Troponin I < 0.012 ng/ml
[2024-08-21 21:07] LABS: ALT (SGPT) 27 U/L (0-35); AST (SGOT) 32 U/L (14-36); Albumin 3.4 g/dl (3.5-5.0); Alkaline Phosphatase 66 U/L (38-126); Blood Urea Nitrogen 40 mg/dl (7-17); Calcium 8.7 mg/dl (8.4-10.2); Carbon Dioxide 13 mmol/L (22-30); Chloride 116 mmol/L (98-107); Glucose 82 mg/dl (70-99); Potassium 4.4 mmol/L (3.5-5.1); Sodium 145 mmol/L (135-145); Total Bilirubin 0.2 mg/dl (0.2-1.3); Total Protein 5.5 g/dl (6.3-8.2); eGFR 43.27
[2024-08-21 21:52] VITALS: BMI 23.1
[2024-08-21 22:01] VITALS: BP 133/61
--- NOTE | 2024-08-21 22:49 | ED.GENMED ---
History of Present Illness
<Sue Martínez DO, Resident - Last Filed: 08/22/24 00:47>
General
Chief Complaint: Fall
Source: patient, records and family
Time Seen by Provider: 08/21/24 21:58
Nursing documentation reviewed up to this point in time: agreed with except (pt reports falling down 2 steps)
History of Present Illness
History of Present Illness:
Ms. Lorna Contreras is an 89yo F pmh stroke, CAD, HTN, type 2 DM, HLD, renal stents (2002, 2003, 2011) brought to the ED via EMS for an unwitnessed fall. Pt states she was looking for the remote and wanted to go upstairs. She sat on her back and
made it up two stairs before she fell down them. Did not hit her head, no LOC. Was unable to get up. Pressed her lifealert button for help. Her son was home upstairs, but did not notcie the fall. States she was able to get up, use her walker, and
open the door for EMS. She has been dizzy and lightheaded for the past 2 weeks, but markedly worse the past two days. New dentures this week. Daughter reports confusion/altered mental status x3days, dizziness while sitting, 'dehydration,' slowed &
slurred speech for 2 days. +visual hallucination of a woman in a floral dress and a woman in a white dress in triage. +increased urinary frequency, +increased urgency, -dysuria, -hematuria. Pt states she has been drinking a lot of water and that is
why she has increased urinary frequency. -GUADARRAMA, -fever, -chills, -N/V, -cp, -palpitations, -dyspnea, -neck stiffness, -acute vision changes, -numbness, -paresthesias, -weakness.
06/12-06/17: ED visit & hospitalization - L hip & sciatic pain w ambulatory dysfunction. Went to rehab. L hip & sciatic pain are still present
07/08: ED visit - R ankle sprain when not using her walker. Occurred 3 days after getting home from rehab.
Pt's daughter and son (not the one who was at home during fall) present at bedside.
If applicable-neuro sx onset
Date of onset of symptoms: 08/20/24
Past History
<Sue Martínez DO, Resident - Last Filed: 08/22/24 00:47>
Past History
ED Past Medical History: CAD, HTN, Hypercholesterolemia, NIDDM and Other (Anemia)
ED Past Surgical History: Cholecystectomy, Urological (Kidney stents X3 on R and one in the L,) and Other (tubal, Carotid endarterectomy)
Patient has exhibited threatening behavior?: No
Social History
Tobacco: Former smoker
Alcohol: Occasional
Drug: None
Personal:
Living: with family
Employment: Retired
Family History
Family History: Other (Noncontributory)
Review of Systems
<Sue Martínez DO, Resident - Last Filed: 08/22/24 00:47>
Review of Systems
Allergies reviewed?: Yes
Other source history: family
All Other Systems: ROS reviewed and negative except as documented in HPI and ROS
ABD/GI: Denies abdominal pain, nausea or vomiting
Musculoskeletal: Reports neck pain (reported to nurse, but did not have any when seen by this provider)
Skin: Denies rash
Phy Exam
<Sue Martínez DO, Resident - Last Filed: 08/22/24 00:47>
General Physical Exam
General Presentation: mild distress
General age: appears stated age
General Skin: warm and dry
General Habitus: elderly
General Mental: confused
General Hydration: appears well hydrated
ENT Exam
ENT Exam: pharynx normal, neck supple and normocephalic
Additional ENT: scar on L neck consistent with carotid endarterectomy, ROM wnl
Eye Exam
Eye Exam: PERRL, EOMI and conjunctiva normal
Cardiovascular Exam
Cardiovascular Exam: no edema, no gallop, no JVD, no murmur, bradycardia and no carotid bruit
Heart Sounds: normal
Pulmonary Exam
Pulmonary Exam: lungs clear, no respiratory distress, no rales, chest non tender, no rhonchi, no wheezing and no cough
Gastrointestinal Exam
Gastrointestinal Exam: normal bowel sounds, non tender, soft, no organomegaly, no pulsatile mass, non distended and no masses
Neurological Exam
Neurological Exam: no sensory deficits and confused
Mental
Describe Speech: slurred (x1.5 days) and other (slowed speech x1.5 days)
Cranial
Cranial Nerves: no facial asymetry and other (tongue protruded to L)
EOM (CN3/4/6): intact
Motor
Bilateral upper extremities: 5
Sensory
Sensory Exam: intact
Reflexes
Reflexes: +2: Left tricep, +2: Right tricep, +2: Left bicep, +2: Right bicep, +2: Left brachioradialis and +2: Right brachioradialis
Musculoskeletal Exam
Musculoskeletal Exam: no edema and other (no tenderness to palpation over back, shoulder, neck. Hypertonic paraspinal mm in upper thoracic spine.)
Skin Exam
Skin Exam: normal color, warm/dry, no rash and no petechia
Psychiatric Exam
Psychiatric Exam: normal mood/affect
Course
<Sue Martínez DO, Resident - Last Filed: 08/22/24 00:47>
Orders/Labs/Results
Orders:
Orders
08/21/24 19:47
Electrocardiogram (*1) Urgent
Reason for Study: Chest Pain
EKG- Treatment ONCE
08/21/24 19:52
Complete Blood Count/With Diff Urgent
Comprehensive Metabolic Panel Urgent
Troponin I Urgent
08/21/24 22:42
Straight cath- Treatment ONCE
08/21/24 23:14
Urinalysis Reflex To Culture Urgent
Date Specimen was Collected: 08/21/24
Time Specimen was Collected: 23:04
Urine Microscopic Reflex Cult Urgent
Urine Culture Urgent
ELISA Source: U
Specimen Description:
Date Specimen was Collected: 08/21/24
Time Specimen was Collected: 23:04
08/21/24 23:52
0.9% Sodium Chloride 1000 ml [Nss] 1,000 ml IV BOLUS
08/22/24 00:00
CT Head W/o Iv Contrast Urgent
Reason For Exam: unwitnessed fall, altered mental status
08/22/24 00:38
Ampicillin/Sulbactam 1.5 G [Unasyn] 1.5 gm 0.9% Sodium Chloride [Nss] 50 ml IV NOW
Abnormal Lab Results
08/21/24 08/21/24
19:52 23:14
RBC 3.45 L 10^6/uL
(4.20-5.40)
Hgb 10.4 L g/dL
(12.0-16.0)
Hct 32.1 L %
(37.0-47.0)
MCHC 32.4 L g/dL
(33.0-37.0)
Absolute Lymphs (auto) 0.7 L 10^3/uL
(1.2-3.4)
Neutrophils % 81.9 H %
(42.2-75.2)
Lymphocytes % 10.2 L %
(20.5-51.1)
Chloride 116 H mmol/L
(98-107)
Carbon Dioxide 13 L* mmol/L
(22-30)
BUN 40 H mg/dl
(7-17)
Creatinine 1.2 H mg/dL
(0.6-1.0)
Total Protein 5.5 L g/dl
(6.3-8.2)
Albumin 3.4 L g/dl
(3.5-5.0)
Leukocyte Esterase Rfl 1+ A
(Negative)
Urine RBC 3-6 A /HPF
(0-2)
Urine WBC (Reflex) 16-20 A /HPF
(0-5)
Urine Bacteria (Reflex) Many A
(Negative)
08/21/24 19:52
08/21/24 19:52
Vital Signs
Initial and Last Documented VS:
Initial Vital Signs
Temp Pulse Resp BP Pulse Ox
98.8 F 59 16 131/63 96
08/21/24 19:43 08/21/24 19:43 08/21/24 19:43 08/21/24 19:43 08/21/24 19:43
Last Documented Vital Signs
Temp Pulse Resp BP Pulse Ox
98.8 F 50 20 133/61 98
08/21/24 19:43 08/21/24 22:01 08/21/24 22:04 08/21/24 22:01 08/21/24 22:01
<Sharon Salinas, DO - Last Filed: 08/22/24 00:54>
Orders/Labs/Results
Orders:
Orders
08/21/24 19:47
Electrocardiogram (*1) Urgent
Reason for Study: Chest Pain
EKG- Treatment ONCE
08/21/24 19:52
Complete Blood Count/With Diff Urgent
Comprehensive Metabolic Panel Urgent
Troponin I Urgent
08/21/24 22:42
Straight cath- Treatment ONCE
08/21/24 23:14
Urinalysis Reflex To Culture Urgent
Date Specimen was Collected: 08/21/24
Time Specimen was Collected: 23:04
Urine Microscopic Reflex Cult Urgent
Urine Culture Urgent
ELISA Source: U
Specimen Description:
Date Specimen was Collected: 08/21/24
Time Specimen was Collected: 23:04
08/21/24 23:52
0.9% Sodium Chloride 1000 ml [Nss] 1,000 ml IV BOLUS
08/22/24 00:00
CT Head W/o Iv Contrast Urgent
Reason For Exam: unwitnessed fall, altered mental status
08/22/24 00:38
Ampicillin/Sulbactam 1.5 G [Unasyn] 1.5 gm 0.9% Sodium Chloride [Nss] 50 ml IV NOW
Abnormal Lab Results
08/21/24 08/21/24
19:52 23:14
RBC 3.45 L 10^6/uL
(4.20-5.40)
Hgb 10.4 L g/dL
(12.0-16.0)
Hct 32.1 L %
(37.0-47.0)
MCHC 32.4 L g/dL
(33.0-37.0)
Absolute Lymphs (auto) 0.7 L 10^3/uL
(1.2-3.4)
Neutrophils % 81.9 H %
(42.2-75.2)
Lymphocytes % 10.2 L %
(20.5-51.1)
Chloride 116 H mmol/L
(98-107)
Carbon Dioxide 13 L* mmol/L
(22-30)
BUN 40 H mg/dl
(7-17)
Creatinine 1.2 H mg/dL
(0.6-1.0)
Total Protein 5.5 L g/dl
(6.3-8.2)
Albumin 3.4 L g/dl
(3.5-5.0)
Leukocyte Esterase Rfl 1+ A
(Negative)
Urine RBC 3-6 A /HPF
(0-2)
Urine WBC (Reflex) 16-20 A /HPF
(0-5)
Urine Bacteria (Reflex) Many A
(Negative)
08/21/24 19:52
08/21/24 19:52
Vital Signs
Initial and Last Documented VS:
Initial Vital Signs
Temp Pulse Resp BP Pulse Ox
98.8 F 59 16 131/63 96
08/21/24 19:43 08/21/24 19:43 08/21/24 19:43 08/21/24 19:43 08/21/24 19:43
Last Documented Vital Signs
Temp Pulse Resp BP Pulse Ox
98.8 F 50 20 133/61 98
08/21/24 19:43 08/21/24 22:01 08/21/24 22:04 08/21/24 22:01 08/21/24 22:01
<Sue Martínez DO, Resident - Last Filed: 08/22/24 00:47>
MDM/Problems Addressed
Differential Diagnosis Includes:
Chronic conditions affecting care: DM, HTN, CAD, PVD, Previous abdomnial surgery and Psychiatric illness
Acute Exacerbation and/or Progression of Chronic Illness: DM, HTN and PVD
<Sue Martínez DO, Resident - Last Filed: 08/22/24 00:47>
*Pulse Oximetry
Patient hypoxic: no
*EKG
Interpreted by ED Provider?: Yes
Interpretation: abnormal
Heart Rate: 53
Rate: bradycardiac
Rhythm: sinus and PVC's
[place]: left axis deviation
Interval: normal interval, normal QT interval and normal MS interval
QRS Pattern: normal QRS
Ischemia: no ischemia
*Public Health Doctor Interpretation
Rate: bradycardiac
Interpretation: abnormal
Heart Rate: 52
Rhythm: sinus and PVC's
*Critical Care Note
Total Time (30-74mins, 75-104mins- exclusive of procedures): Not Applicable
Data Reviewed
Review of Other/Old Records Reveals: Records, Progress Notes and Discharge Summary
Source: patient, records, family and previous hospital records
<Sharon Salinas DO - Last Filed: 08/22/24 00:54>
*Radiology
Radiology exam reviewed: radiology read reviewed (CT of the head shows chronic left MCA encephalomalacia.)
ED Attending Note
<Sue Martínez DO, Resident - Last Filed: 08/22/24 00:47>
-
Portions of this chart may have been created with voice recognition software.� Occasional wrong word or��sound alike� substitutions may have occurred due to the inherent limitations of voice recognition software.
<Sharon Salinas DO - Last Filed: 08/22/24 00:54>
ED Attending Note
Patient seen and examined by attending physician: Yes
I performed the substantive portion of visit, reviewed & personally made and approve the management plan that is documented in note by myself or GENE.: Yes
I performed a history and physical exam of patient and discussed management with resident, I reviewed resident's note and agree with documented findings and plan of care.: Yes
ED Attending Note:
This is an 89-year-old woman who resides at home with family. She has history of CAD, hypertension, hyperlipidemia, CVA, [id number]-[id number]-[id number] diabetes, DJD, chronic ambulatory dysfunction utilizes walker. Hospitalized here in June with acute
ambulatory dysfunction related to low back pain, sciatica, transition to SNF where she resided for 2 weeks and did well with physical therapy and has since returned home.
More recently over the past 2 weeks she has been experiencing intermittent dizziness, lightheadedness, much worse over the past week. This has been complicated with new potentially poorly fitting upper dentures with mouth sores and somewhat poor
appetite. Family is concerned with change in mental status, some mild confusion over the past several days that has worsened over the past 2 days along with change in her speech, some slurred speech and intermittent word searching that seems worse
over the past 2 days.
Today while attempting to shift position from her walker to a seated position on the steps she lost her balance and fell on the steps onto her buttocks. She denies head injury nor back injury, denies loss of consciousness. She was initially unable
to write herself and thus pressed her medic alert. She was however able to get up and use her walker and ambulate to the door to let the medics in the door. She admits that dizziness and lightheadedness are much worse with standing but she has had
no recurrent falls nor syncope. She denies coughing or shortness of breath. She does admit to urinary incontinence, wears a poise pad and urinary incontinence/frequency have worsened over the past week. She denies dysuria. She does not believe
she has had a fever.
Patient is legally blind.
Today however she is noted some visual hallucinations, visualizing to women in flowery dresses that she knows are not present.
No auditory hallucinations.
Questionable history of similar visual hallucinations in the past according to patient but this is new according to family.
No history of alcohol or drug use.
Daughter states blood pressure yesterday systolic was 110, which is quite low for patient.
GENERAL: 89-year-old woman appears her stated age, somewhat frail in appearance but bright and alert, oriented x 3. Intermittent mild slurring and speech is somewhat slow and deliberate with occasional word searching.
EYE: pupils equal and reactive. anicteric. The head is normocephalic, atraumatic.
NECK: Supple, nontender, no meningismus, no significant adenopathy.
ENT: posterior pharynx is clear, oral mucosa is mildly dry. TM clear b/l, nares patent.
CARDIAC: Regular rate and rhythm. no murmur.
LUNGS: Clear breath sounds bilaterally, no acute respiratory distress, no wheezes/rales/rhonchi
ABDOMEN: Soft, nondistended, without focal tenderness, no r/g, no cvat. normoactive BS.
BACK: No midline bony tenderness. No palpable bony pelvic tenderness.
NEUROLOGICAL: Alert and oriented x3, Motor strength is 5/5 bilaterally. Gross sensation is intact. Intermittent mild slurring as well as intermittent word searching, occasional stuttering speech.
SKIN: Warm and dry, normal color, skin intact. No rash.
MUSCULOSKELETAL: No C/C/E. peripheral pulses are full and equal b/l. No palpable tenderness.
PSYCH: Normal and appropriate interaction.
Concern for acute/subacute stroke, dehydration, electrolyte abnormality, UTI, occult head trauma, arrhythmia, exacerbation of ambulatory dysfunction.
Will check CT of the head.
Will check urinalysis with reflex to culture.
Labs thus far reveal moderate chronic kidney disease that appears stable but new onset significant metabolic acidosis with CO2 of 13. This may reflect starvation ketosis, an element of dehydration.
EKG shows sinus bradycardia. Troponin is negative.
Will initiate IV fluids and due to change in mental status, dizziness with concern for orthostasis versus CVA patient will require acute hospitalization for continued monitoring and further evaluation.
Discharge Plan
Departure
Patient Disposition: Admit
Date of Disposition: 08/22/24
Time of Disposition: 00:53
Admit to: Telemetry
Admit to doctor: Devang
Presentation/result/management discussed w/ accepting MD/DO: Hospitalist
Patient with high blood pressure during this ER visit?: No
Condition: Fair
Discharge Problem:
Altered mental status, Acute UTI, Acute metabolic acidosis
Prescriptions:
No Action
cholecalciferol (vitamin D3) 1,000 UNITS tablet
1,000 units PO DAILY@1200
venlafaxine 25 MG tablet
50 mg PO DAILY
pantoprazole 40 MG tablet,delayed release (DR/EC)
40 mg PO DAILY
mirtazapine 15 MG tablet
7.5 mg PO HS
carvedilol 6.25 MG tablet
6.25 mg PO BID Qty: 60 0RF
clopidogrel 75 MG tablet
75 mg PO DAILY@1200 Qty: 0 0RF
Rx Instructions:
Resume only after discussion with Primary car packer
amlodipine [Norvasc] 10 MG tablet
10 mg PO DAILY Qty: 30 0RF
losartan 100 mg Tablet
100 mg PO DAILY
rosuvastatin 10 mg Tablet
10 mg PO DAILY
aripiprazole 2 MG tablet
40 mg PO HS
aripiprazole 2 mg Tablet
2 mg PO HS Qty: 30 0RF
lidocaine 4 % Adhesive Patch,Medicated
1 patch topical DAILY Qty: 10 0RF
Rx Instructions:
Remove patch daily at 8 pm
polyethylene glycol 3350 [HealthyLax] 17 gram Powder In Packet
17 g PO DAILY Qty: 30 1RF
gabapentin 100 mg Capsule
100 mg PO HS Qty: 20 0RF
acetaminophen [Tylenol Extra Strength] 500 mg Tablet
1,000 mg PO TID Qty: 10 0RF
Referrals:
Chacorta Solis CRNP [Family Provider] -
Interventions
Interventions:
*Risk Screen - Suicide Last Done: 08/21/24 19:43
*General Assessment Last Done: 08/21/24 21:53
*Neglect/Abuse Screening Last Done: 08/21/24 21:53
*ED COVID-19 Vaccine History Last Done: 08/21/24 21:53
ED-Musculoskeletal Assessment Last Done: 08/21/24 22:05
ED- Neurological Assessment Last Done: 08/21/24 22:05
ED-Skin Assessment Last Done: 08/21/24 22:05
Discharge Date and Time
Print Language: EMIRATI
[2024-08-21 23:00] VITALS: BP 127/51
[2024-08-21 23:28] LABS: Urine Albumin Negative (Neg - Trace); Urine Bilirubin Negative (Negative); Urine Character Slightly Cloudy (Clear); Urine Color Yellow; Urine Glucose Negative (Negative); Urine Ketone Negative (Negative); Urine Leukocyte 1+ (Negative); Urine Nitrite Negative (Negative); Urine Occult Blood Negative (Negative); Urine Urobilinogen Negative (Neg - 1+)
[2024-08-21 23:55] LABS: Urine Bacteria Many (Negative); Urine White Cell 16-20 /HPF (0-5)
[2024-08-22] VITALS (11 sets, daily range): BP systolic 115–147; BP diastolic 49–70; BMI 20.9
[2024-08-22] MEDS: NSS 1000 IV (00:34)
[2024-08-22] MEDS: UNASYN IV ×4 (01:04→20:07)
[2024-08-22 01:38] LABS: COVID-19 Antigen Negative (Negative)
--- NOTE | 2024-08-22 02:13 | HPS.HSE ---
Family Physician
-
Family Physician: Chacorta Solis
Chief Complaint
-
Fall at Home
History of Present Illness
Patient is an 89y F with PMH significant for ASCVD, hypertension and CKD who presents to ED complaining of fall at home this evening. Patient states that she started to climb the stairs in her home when she fell down two stairs onto the floor.
Family was home but did not witness the fall or respond after the fall. Patient was able to get up unassisted, contact [facility] / EMS and then answer the door for EMS when they arrived. Patient denies any significant pain or evident injury at
this time.
Patient reports chronic 'double vision' and dizziness. She cannot describe to me whether double vision is vertical or horizontal. She states that this has been going on for quite some time - months at least.
Patient states that she has been increasingly dizzy for the past 2 weeks or so.
She has had slurred speech noted by family for the past 3 days - but also notes that she got new dentures one week ago and 'that is why I sound they way I sound'.
Patient reports poor appetite, black / tarry stools, urinary frequency and increased thirst / fluid intake.
She has some edema at the ankles which she states is new.
Patient denies any fevers / chills, cough / SOB, chest pain, etc.
Medical History
Past Medical History
Past Medical History: Reports Other
Additional Past Medical History:
Coronary artery disease
Hypertension
Hyperlipidemia
Spinal stenosis
Major depression
Anxiety
Past Surgical History: Reports Other
Additional Past Surgical History:
Cholecystectomy
Carotid endarterectomy
T&A
Social History
Tobacco: Non-smoker
Alcohol: None
Drug: None
Personal: Single
Living: With Family
Family History
Family History: Not pertinent
Allergies / Home Medications
Allergies reflects when Allergies were last updated in [facility].
Home Medications with original date entered in [facility]
Allergy/Medication List:
Allergies
Allergy/AdvReac Type Severity Reaction Status Date / Time
cefuroxime axetil Allergy Intermediate Rash Verified 07/08/24 07:18
[From Ceftin]
codeine Allergy Hives Verified 07/08/24 07:18
Iodinated Contrast Media Allergy Hives Verified 07/08/24 07:18
[IV Dye, Iodine Containing
Contrast ]
iodine Allergy Hives Verified 07/08/24 07:18
shellfish derived Allergy Unknown Verified 07/08/24 07:18
spironolactone Allergy Itching Verified 07/08/24 07:18
[From Aldactone]
Home Medications
cholecalciferol (vitamin D3) 25 mcg (1,000 unit) tablet 1,000 units PO DAILY@1200 Supplement 05/03/20
mirtazapine 15 mg tablet 7.5 mg PO HS Sleep 05/03/20
pantoprazole 40 mg tablet,delayed release 40 mg PO DAILY Gastrointestinal issue 05/03/20
venlafaxine 25 mg tablet 50 mg PO DAILY Mental Health/Anxiety 05/03/20
amlodipine 10 mg tablet (Norvasc) 10 mg PO DAILY #30 tabs 05/07/20
carvedilol 6.25 mg tablet 6.25 mg PO BID #60 tabs 05/07/20
clopidogrel 75 mg tablet 75 mg PO DAILY@1200 Blood clot prevention/tx ##0 05/07/20
losartan 100 mg tablet 100 mg PO DAILY Blood Pressure 06/12/24
rosuvastatin 10 mg tablet 10 mg PO DAILY High Cholesterol 06/12/24
acetaminophen 500 mg tablet (Tylenol Extra Strength) 1,000 mg (2 x 500 mg) PO TID #10 tabs 06/17/24
aripiprazole 2 mg tablet 2 mg PO HS #30 tabs 06/17/24
gabapentin 100 mg capsule 100 mg PO HS #20 caps 06/17/24
lidocaine 4 % topical patch 1 patch topical DAILY #10 ea 06/17/24
aspirin 81 mg tablet,delayed release 81 mg PO DAILY 08/22/24
latanoprost 0.005 % eye drops (Xalatan) 1 drp ophthalmic (eye) DAILY 08/22/24
polyethylene glycol 3350 17 gram oral powder packet (HealthyLax) 17 g PO DAILY PRN constipation 08/22/24
Review of Systems
-
History Source: Patient
A 12 point ROS was completed and negative except as noted: Yes
Constitutional: Reports Fatigue; Denies Fever or Chills
EENT: Denies Sore Throat
Respiratory: Denies Cough or Trouble Breathing
Cardiac: Denies Chest Pain, Diaphoresis, Palpitations or Syncope
Abdomen/GI: Reports Black Stools; Denies Abdominal Pain, Nausea, Vomiting or Diarrhea
: Reports Frequency and Incontinence; Denies Dysuria or Bleeding
Musculoskeletal: Reports Edema; Denies Joint Pain
Neurological: Reports Dizzy; Denies Headache, Weakness or Numbness
Psych: Denies Depression or Anxiety
Physical Exam
Vital Signs
Vital Signs
Temp Pulse Resp BP Pulse Ox
98.8 F 50 20 133/61 98
08/21/24 19:43 08/21/24 22:01 08/21/24 22:04 08/21/24 22:01 08/21/24 22:01
Physical Exam
General: Other (89y F in no acute distress.)
HEENT: Moist mucous membranes and PERRLA
Respiratory: Clear; No Wheezes, Rales or Rhonchi
Cardiac: S1/S2, Regular Rhythm and Murmur (II/ [place])
GI: Soft, Non Tender, Non Distended and Normal Bowel Sounds
Musculoskeletal: No Clubbing, No Cyanosis and Other (1+ edema at ankles bilaterally.)
Neuro: AO x 3 and Nonfocal/grossly intact
Psych: No Agitated or Anxious
Laboratory Results
-
08/21/24 19:52
08/21/24 19:52
Laboratory Results
Total Bilirubin 0.2 mg/dl (0.2-1.3) 08/21/24 19:52
AST 32 U/L (14-36) 08/21/24 19:52
ALT 27 U/L (0-35) 08/21/24 19:52
Alkaline Phosphatase 66 U/L (38-126) 08/21/24 19:52
Troponin I < 0.012 ng/ml 08/21/24 19:52
Impression/Plan
-
A/P: Patient is an 89y F with PMH significant for ASCVD, HTN and CKD who presents to ED for evaluation s/p fall at home.
Fall at Home
Chronic Dizziness
Chronic Diplopia
- Admit for further evaluation and treatment.
- Patient attributes fall to chronic dizziness that has been worse over the past 2 weeks or so.'
- CT done in the ED was unremarkable. Acute CVA seems unlikely with current symptoms / presentation.
- Will check MR in AM for completeness and further evaluation of diplopia.
- Follow for changes in neurologic exam.
- PT / OT evaluations in the AM.
Metabolic Acidosis
- Unclear etiology. Primarily non-gapped acidosis.
- Patient denies significant GI losses. Pos frequent urination.
- IVFs with bicarbonate supplementation.
- Follow labs / lytes for improvement.
- Consider Nephrology evaluation if acidosis persists.
CKD III
- Stable. In fact, renal function is improved from typical baseline.
- Follow for changes with med adjustments / IVF support.
Mild Bradycardia
- HR in the ED in the 50s - 60s with complaints of chronic dizziness.
- Hold Coreg acutely.
- Monitor on telemetry overnight.
ASCVD
Benign Hypertension
- Stable. Hold amlodipine for now.
- Holding parameters for losartan to avoid hypotension / orthostasis.
Normocytic Anemia
Melena
- Patient reports dark stools x months.
- Normocytic anemia which appears stable compared to prior values.
- Heme test stools. Check iron studies, etc.
- Follow H&H for any changes.
Abnormal UA
- Patient does report increased urinary frequency (but tied to increased fluid intake).
- UA fairly equivocal with some WBCs and bacteria - but also pos squamous cells and negative nitrites.
- Will continue abx for now pending culture data.
Dysarthria
- Speech changes seem coincident with new dentures received within the past week.
- Check MRI as noted above though CVA seems less likely.
DVT Prophylaxis: SCDs
Code Status: Full
[2024-08-22 05:50] LABS: Hematocrit 30.6 % (37.0-47.0); Mean Corp Hgb Conc. 32.7 g/dL (33.0-37.0); Mean Corpuscular Hgb 30.2 pg (27.0-31.0); Mean Corpuscular Volume 92.4 fL (81.0-99.0); Mean Platelet Volume 10.6 fL (7.4-10.4); Platelet Count 154 10^3/uL (130-400); Red Blood Cell Count 3.31 10^6/uL (4.20-5.40); Red Cell Dist. Width 13.6 % (11.5-14.5); White Blood Cell Count 5.4 10^3/uL (4.8-10.8)
[2024-08-22] MEDS: SODIUM BICARBONATE 1150 MEQ IV ×2 (06:16→17:01)
[2024-08-22 06:17] LABS: Blood Urea Nitrogen 47 mg/dl (7-17); Calcium 9.2 mg/dl (8.4-10.2); Carbon Dioxide 21 mmol/L (22-30); Chloride 112 mmol/L (98-107); Estimated Creatinine Clearance 25 ml/min; Glucose 74 mg/dl (70-99); Iron 66 ug/dl (37-170); Potassium 5.3 mmol/L (3.5-5.1); Sodium 145 mmol/L (135-145); eGFR 35.96
[2024-08-22 06:26] LABS: Percent Saturation 18 % (20-50); Total Iron Binding Capacity 348 ug/dl (265-497)
--- NOTE | 2024-08-22 06:30 | PTCARENOTE ---
Addendum entered by Tashia Araya RN 08/22/24 07:42:
Patient needed second IV site for IV ABX (not compatible with con't IV fluids). PLATE GAUGER notified but during change of shift. Report given that second IV site is needed for IV ABX.
Original Note:
Patient admitted to unit. Vital signs, unable to take oral/armpit temp. Rectal temp 93.3 F. Notified Nisreen Olivarez NP. Ordered Beir hugger. Notified supervisor jewelry department. Used warm blankets while waiting for Beir hugger. Order to bladder scan & straight cath
patient. Patient able to void 5 cc on bedpan. Bladder scan showed at least 359 cc. Straight cath'd 625 clear yellow urine out, PVR 0 cc. Patient DTV at 1230 pm. Patient is AAO x 3. Able to state year but had trouble stating current month. Patient
uses walker at home but admitted for fall. Bed alarm in use. Reviewed call palacios and safety measures with patient.
[2024-08-22] MEDS: CRESTOR 10 MG PO (08:18)
[2024-08-22] MEDS: ASPIR LOW (ENTERIC COATED) 81 MG PO (08:18)
[2024-08-22] MEDS: PROTONIX 40 MG PO (08:18)
[2024-08-22] MEDS: COZAAR 100 MG PO (08:18)
[2024-08-22] MEDS: EFFEXOR 50 MG PO (09:11)
--- NOTE | 2024-08-22 15:17 | PTOTSP ---
SPEECH THERAPY SWALLOW EVALUATION:
Patient exhibits clinical signs of oropharyngeal dysphagia, likely chronic related to generalized weakness/deconditioning in the setting of advanced age. Patient remains at risk for aspiration and related complications given confusion. Recommend
diet downgrade to IDDSI Level 6 Soft and Bite size diet, thin liquids. Medications whole in applesauce. Aspiration precautions includin:1 assistance/supervision with meals; Upright positioning; Only feed when awake/alert; Small sips/bites; Slow
rate of intake; Monitor for signs of aspiration; D/c oral diet if any decline in mental or respiratory status; Oral care 3x/day; Ensure patient swallows prior to next bite. Speech therapy to follow, assess diet tolerance and modify as appropriate,
determine indication for instrumental assessment of swallowing as appropriate, and provide continued education regarding aspiration risks/precautions.
RECOMMEND:
1) IDDSI Level 6 Soft and Bite size diet, thin liquids
2) Medications whole in applesauce
3) Aspiration precautions includin:1 assistance/supervision with meals; Upright positioning; Only feed when awake/alert; Small sips/bites; Slow rate of intake; Monitor for signs of aspiration; D/c oral diet if any decline in mental or
respiratory status; Oral care 3x/day; Ensure patient swallows prior to next bite
4) Speech therapy to follow
--- NOTE | 2024-08-22 19:42 | W.PN.UPDATE ---
Update Note
Progress Note Update
Reported by the nursing staff that the patient has living well scanned to the chart with her wishes to be DNR and the daughter want to change the code status from full code to DNR. Spoke to the daughter over the phone and code status was changed per
the patient wishes in the living well.
--- NOTE | 2024-08-22 20:10 | PTCARENOTE ---
Pt stating urinary difficulty and inability to void. bladder scanned pt for >809 mls- X6 RNs attempted straight catheterization- unable. House WATERSHED TENDER aware order to place trujlilo. Pt immediately drained 1200 mls clear yellow urine.
[2024-08-22] MEDS: DESENEX/MITRAZOL/ZEASORB 1 APPLIC TOPICAL (20:12)
[2024-08-22] MEDS: NEURONTIN 100 MG PO (21:36)
[2024-08-22] MEDS: ABILIFY 2 MG PO (21:37)
[2024-08-22] MEDS: REMERON 7.5 MG PO (21:37)
[2024-08-22] MEDS: XALATAN OPHTHALMIC SOLUTION 1 DROP BOTH EYES (21:38)
[2024-08-23] VITALS (9 sets, daily range): BP systolic 115–149; BP diastolic 47–80; PULSE 85–89; O2SAT 94; BMI 22.5
[2024-08-23] MEDS: UNASYN IV ×4 (01:51→20:17)
[2024-08-23] MEDS: SODIUM BICARBONATE 1150 MEQ IV (04:06)
[2024-08-23 08:23] LABS: Hematocrit 29.7 % (37.0-47.0); Mean Corp Hgb Conc. 33.7 g/dL (33.0-37.0); Mean Corpuscular Hgb 30.7 pg (27.0-31.0); Mean Corpuscular Volume 91.1 fL (81.0-99.0); Mean Platelet Volume 11.2 fL (7.4-10.4); Platelet Count 142 10^3/uL (130-400); Red Blood Cell Count 3.26 10^6/uL (4.20-5.40); Red Cell Dist. Width 13.9 % (11.5-14.5); White Blood Cell Count 6.6 10^3/uL (4.8-10.8)
[2024-08-23] MEDS: CRESTOR 10 MG PO (08:43)
[2024-08-23] MEDS: EFFEXOR 50 MG PO (08:43)
[2024-08-23] MEDS: ASPIR LOW (ENTERIC COATED) 81 MG PO (08:43)
[2024-08-23] MEDS: TYLENOL 650 MG PO (08:43)
[2024-08-23] MEDS: PROTONIX 40 MG PO (08:43)
[2024-08-23] MEDS: DESENEX/MITRAZOL/ZEASORB 1 APPLIC TOPICAL ×2 (08:44→20:18)
[2024-08-23 08:51] LABS: Blood Urea Nitrogen 33 mg/dl (7-17); Calcium 8.9 mg/dl (8.4-10.2); Carbon Dioxide 31 mmol/L (22-30); Chloride 101 mmol/L (98-107); Estimated Creatinine Clearance 26 ml/min; Glucose 72 mg/dl (70-99); Potassium 4.3 mmol/L (3.5-5.1); Sodium 143 mmol/L (135-145); eGFR 35.96
--- NOTE | 2024-08-23 13:08 | CM ---
Addendum entered by Maribell Perez 08/23/24 13:58:
referrals sent to requested SNF options
Original Note:
Patient seen at bedside with daughter in law and son. 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 Patient lives in a split level home with her adult disabled son. Due to patient concerns about losing son she has been concerned about going to
SNF/Assisted living per patient daughter.
Per patient family there are 5 steps to each level and patient has no steps to enter. Patient uses either walker or cane. Patient PCP is Dr. Solis and she uses the [facility] in [place] for pharmacy needs. Patient daughter Darlene is the
POA and family requested CM call to her to review options. Physician indicated that patient family was asking for placement to him also. CM called Patient daughter expressed anger at [facility] and refuses to have her return to [facility] and referrals sent to
[facility], [facility]. CM will continue to follow for discharge planning needs.
Plan; SNF
--- NOTE | 2024-08-23 13:29 | W.PN.HOSP.TC ---
Today's Communication/Plan
-
rehab placement
Assessment / Plan
Assessment / Plan
Fall at Home
Chronic Dizziness
Chronic Diplopia
- Admit for further evaluation and treatment.
- Patient attributes fall to chronic dizziness that has been worse over the past 2 weeks or so.'
- CT done in the ED was unremarkable. Acute CVA seems unlikely with current symptoms / presentation.
- PT evaluated and requires rehab placement
- MRI brain without contrast pending
Metabolic Acidosis
- Unclear etiology. Primarily non-gapped acidosis.
- Patient denies significant GI losses. Pos frequent urination.
- Resolved with bicarbonate therapy
Hyperkalemia
- Minimal and with MUSA therapy
- Resumed back losartan if needed, BP controlled without meds.
CKD III
- Stable. In fact, renal function is improved from typical baseline.
- Follow for changes with med adjustments / IVF support.
Mild Bradycardia
- HR in the ED in the 50s - 60s with complaints of chronic dizziness.
- Continue holding coreg for now as BP controlled.
ASCVD
Benign Hypertension
- Stable. Hold amlodipine for now.
- Holding parameters for losartan to avoid hypotension / orthostasis.
Normocytic Anemia
Melena
- Patient reports dark stools x months.
- Check FOBT
Abnormal UA
- Patient does report increased urinary frequency (but tied to increased fluid intake).
- UA fairly equivocal with some WBCs and bacteria - but also pos squamous cells and negative nitrites.
- Will continue abx for now pending culture data.
Dysarthria
- Speech changes seem coincident with new dentures received within the past week.
- Check MRI as noted above though CVA seems less likely.
DVT Prophylaxis: SCDs
Code Status: DNR - daughter brought in living will.
Anticipated Discharge: 24 - 48 hours
Subjective/Interval History
-
Date of Service: August 23, 2024
Resting comfortably in bed
some left sided flank/rib pain
no other reported issues
Objective Data
-
Labs:
Laboratory Results
08/23/24
07:05
WBC 6.6
Hgb 10.0 L
Hct 29.7 L
Plt Count 142
Sodium 143
Potassium 4.3
Chloride 101
Carbon Dioxide 31 H
BUN 33 H
Creatinine 1.4 H
Glucose 72
Calcium 8.9
Vital Signs:
Vital Signs
Temp Pulse Resp BP Pulse Ox
97.4 F 73 18 128/47 97
08/23/24 11:05 08/23/24 11:05 08/23/24 11:05 08/23/24 11:05 08/23/24 11:05
I&O
08/22/24 08/23/24 08/24/24
06:59 06:59 06:59
Intake Total 1080 / 1080 480 / 480
Output Total 1250 / 1250 3075 / 3075 700 / 700
Balance -1250 / -1250 -1994 / -1994 - /
Review of Systems
-
Respiratory: Reports No Symptoms
Cardiac: Reports No Symptoms
Abdomen/GI: Reports No Symptoms
Physical Exam
-
General: No Apparent Distress and Comfortable
HEENT: Negative Oxygen
Respiratory: Clear to Auscultation and Other (Left lower rib pain)
Cardiac: Regular Rhythm and S1/S2; Negative Murmur or Rub
GI: Soft, Nontender and Nondistended
Musculoskeletal: No Edema
Neuro: Awake, Alert, Oriented, No Motor Deficits and Nonfocal/Grossly Intact
Psych: Calm
[2024-08-23] MEDS: LIDOCAINE 4% PATCH 1 PATCH TOPICAL (14:03)
[2024-08-23] MEDS: NEURONTIN 100 MG PO (21:53)
[2024-08-23] MEDS: ABILIFY 2 MG PO (21:53)
[2024-08-23] MEDS: REMERON 7.5 MG PO (21:55)
[2024-08-23] MEDS: XALATAN OPHTHALMIC SOLUTION 1 DROP BOTH EYES (21:56)
[2024-08-24] VITALS (8 sets, daily range): BP systolic 116–188; BP diastolic 64–95; PULSE 78–86; BMI 21.6
[2024-08-24] MEDS: UNASYN IV ×4 (02:08→20:33)
[2024-08-24] MEDS: APRESOLINE 10 MG IV ×2 (03:37→23:41)
[2024-08-24 09:15] LABS: Blood Urea Nitrogen 30 mg/dl (7-17); Calcium 9.6 mg/dl (8.4-10.2); Carbon Dioxide 24 mmol/L (22-30); Chloride 105 mmol/L (98-107); Estimated Creatinine Clearance 24 ml/min; Glucose 81 mg/dl (70-99); Potassium 4.1 mmol/L (3.5-5.1); Sodium 143 mmol/L (135-145)
[2024-08-24] MEDS: DESENEX/MITRAZOL/ZEASORB 1 APPLIC TOPICAL ×2 (09:31→20:25)
[2024-08-24] MEDS: PROTONIX 40 MG PO (09:33)
[2024-08-24] MEDS: CRESTOR 10 MG PO (09:33)
[2024-08-24] MEDS: EFFEXOR 50 MG PO (09:33)
[2024-08-24] MEDS: ASPIR LOW (ENTERIC COATED) 81 MG PO (09:33)
[2024-08-24] MEDS: FLUSH (NSS) 1 FLUSH IV ×2 (09:35→14:05)
[2024-08-24 09:51] LABS: Hematocrit 33.2 % (37.0-47.0); Hemoglobin 11.2 g/dL (12.0-16.0); Mean Corp Hgb Conc. 33.7 g/dL (33.0-37.0); Mean Corpuscular Hgb 31.4 pg (27.0-31.0); Mean Platelet Volume 10.6 fL (7.4-10.4); Platelet Count 141 10^3/uL (130-400); Red Blood Cell Count 3.57 10^6/uL (4.20-5.40); Red Cell Dist. Width 13.8 % (11.5-14.5); White Blood Cell Count 7.4 10^3/uL (4.8-10.8)
--- NOTE | 2024-08-24 16:36 | PTCARENOTE ---
Pt AAO x3, [place]; OOB to chair with assist x 1-2/walker, needs much encouragement to participate in OOB activity. Speech sl slurred at times d/t pt's wearing dentures. Pt occ c/o sl dizziness with OOB activity. VSS. On room air- pulse ox 95%, no
SOB noted. Abd soft, rounded, stephen IDDI6 diet- takes PO with encouragemnt. Jones P/I clear yellow urine. Resting in bed at present, no c/o. Will continue to monitor.
--- NOTE | 2024-08-24 16:55 | W.PN.HOSP.TC ---
Today's Communication/Plan
-
Monitor for orthostasis.
Reintroduce Coreg.
Continue holding valsartan.
Continue holding Norvasc
Repeat urine cultures
Continue empiric Unasyn for presumed UTI.
Monitor hemoglobin.
Reintroduce Plavix and stop aspirin.
Continue Jones catheter
Physical therapy assessment
Rehab on discharge
Assessment / Plan
Assessment / Plan
Fall at Home
Chronic Dizziness
Chronic Diplopia
- Admit for further evaluation and treatment.
- Patient attributes fall to chronic dizziness that has been worse over the past 2 weeks or so.'
- CT done in the ED was unremarkable. Acute CVA seems unlikely with current symptoms / presentation.
-MRI of the brain with no acute abnormalities
- PT evaluated and requires rehab placement
Presumed UTI
Urine culture with streptococcal species. Possibly contamination
Acute urinary retention requiring Jones catheter placement on 08/23.
Empiric antibiotics Unasyn initiated.
Repeat urine culture with Jones catheter
CKD stage III. Baseline creatinine 1.2�1.5
Metabolic acidosis? Chronic
Status post IV fluids with bicarb. Monitor off IV fluids
Hyperkalemia
Hold further ARB
Mild Bradycardia
- HR in the ED in the 50s - 60s with complaints of chronic dizziness.
- Improved.
Resume Coreg and monitor
ASCVD
Left renal artery stenosis status post stenting 2011. On DAPT prior to presentation. Will transition to Plavix alone.
Benign Hypertension
- Stable. Hold amlodipine for now.
Resume Coreg and monitor for recurrent bradycardia
Normocytic Anemia
Melena
- Patient reports dark stools x months.
- Check FOBT
-Hemoglobin stable
Continue PPI
Dysarthria
- Speech changes seem coincident with new dentures received within the past week.
- Check MRI as noted above though CVA seems less likely.
DVT Prophylaxis: SCDs
Code Status: DNR - daughter brought in living will.
Anticipated Discharge: 24 - 48 hours
Subjective/Interval History
-
Date of Service: August 24, 2024
Objective Data
-
Labs:
Laboratory Results
08/24/24
06:43
WBC 7.4
Hgb 11.2 L
Hct 33.2 L
Plt Count 141
Sodium 143
Potassium 4.1
Chloride 105
Carbon Dioxide 24
BUN 30 H
Creatinine 1.5 H
Glucose 81
Calcium 9.6
Vital Signs:
Vital Signs
Temp Pulse Resp BP Pulse Ox
98.5 F 81 18 165/77 95
08/24/24 16:40 08/24/24 16:40 08/24/24 16:40 08/24/24 16:40 08/24/24 16:40
I&O
08/23/24 08/24/24 08/25/24
06:59 06:59 06:59
Intake Total 1080 / 1080 2660 / 2660
Output Total 3075 / 3075 4300 / 4300
Balance -1994 / -1994 -1639 / -1640
Physical Exam
-
General: No Apparent Distress and Comfortable
HEENT: Negative Oxygen
Respiratory: Clear to Auscultation and Other (Left lower rib pain)
Cardiac: Regular Rhythm and S1/S2; Negative Murmur or Rub
GI: Soft, Nontender and Nondistended
Musculoskeletal: No Edema
Neuro: Awake, Alert, Oriented, No Motor Deficits and Nonfocal/Grossly Intact
Psych: Calm
[2024-08-24 17:38] LABS: Urine Albumin Trace (Neg - Trace); Urine Bilirubin Negative (Negative); Urine Character Clear (Clear); Urine Color Yellow; Urine Glucose Negative (Negative); Urine Ketone Negative (Negative); Urine Leukocyte 1+ (Negative); Urine Nitrite Negative (Negative); Urine Occult Blood 3+ (Negative); Urine Urobilinogen Negative (Neg - 1+)
[2024-08-24 17:55] LABS: Urine Bacteria Few (Negative); Urine Red Blood Cell 16-20 /HPF (0-2); Urine Squamous Cell 0-2 /LPF (Few); Urine Urothelial Cell 0-2 /LPF (FEW); Urine White Cell 16-20 /HPF (0-5)
[2024-08-24] MEDS: REMERON 7.5 MG PO (20:32)
[2024-08-24] MEDS: TYLENOL 650 MG PO (20:32)
[2024-08-24] MEDS: COREG 6.25 MG PO (20:32)
[2024-08-24] MEDS: NEURONTIN 100 MG PO (20:32)
[2024-08-24] MEDS: XALATAN OPHTHALMIC SOLUTION 1 DROP BOTH EYES (20:33)
[2024-08-24] MEDS: ABILIFY 2 MG PO (20:33)
[2024-08-25 00:52] VITALS: BP 145/68
[2024-08-25] MEDS: UNASYN IV ×2 (01:25→09:22)
[2024-08-25 05:25] VITALS: BMI 22.1
[2024-08-25 07:05] VITALS: BP 133/72; BP 137/76; PULSE 89; PULSE 92
[2024-08-25 09:21] LABS: Hematocrit 34.5 % (37.0-47.0); Hemoglobin 11.4 g/dL (12.0-16.0); Mean Corpuscular Hgb 31.4 pg (27.0-31.0); Mean Platelet Volume 10.8 fL (7.4-10.4); Platelet Count 135 10^3/uL (130-400); Red Blood Cell Count 3.63 10^6/uL (4.20-5.40); Red Cell Dist. Width 14.1 % (11.5-14.5); White Blood Cell Count 7.5 10^3/uL (4.8-10.8)
[2024-08-25] MEDS: COREG 6.25 MG PO ×2 (09:21→20:12)
[2024-08-25] MEDS: CRESTOR 10 MG PO (09:21)
[2024-08-25] MEDS: DESENEX/MITRAZOL/ZEASORB 1 APPLIC TOPICAL ×2 (09:21→20:12)
[2024-08-25] MEDS: EFFEXOR 50 MG PO (09:21)
[2024-08-25] MEDS: PROTONIX 40 MG PO (09:21)
[2024-08-25] MEDS: FLUSH (NSS) 2 FLUSH IV (09:22)
[2024-08-25] MEDS: FLUSH (NSS) 1 FLUSH IV (09:23)
--- NOTE | 2024-08-25 09:23 | PN.CDI ---
Addendum entered and electronically signed by Magnus Vidal MD 08/28/24 17:31:
Unable to comment likely irrelevant measurement.
Original Note:
CDI
- -
CDI:
Physician Documentation Request
Admit Date: 08/22/24 02:51
Dear Doctor Young,
Please review the following and provide your response in the progress notes.
Clinical Indicators:
- Patient admit for fall at home and UTI
- 08/22 RN note 'unable to take oral/armpit temp. Rectal temp 93.3 F...Beir hugger...Used warm blankets while waiting for Beir hugger'
Selected Entries
08/21/24
19:43 08/22/24
04:55 08/22/24
08:10
Temp 98.8 F 93.3 F L 94.4 F L
08/22/24
09:15 08/22/24
10:50 08/22/24
11:10
Temp 95 F L 96.5 F L 97.3 F
Please provide a diagnosis for the above values that were monitored and treatment rendered:
Hypothermia
Clinically insignificant abnormal lab value
Other
Use of terms such as suspected, likely, concern for, or probable (associated with a specific diagnosis that is being evaluated, monitored, or treated as if it exists) are acceptable and can be coded in the inpatient setting, when documented at the
time of discharge.
Thank you,
Kaveh Corbin RN
CDI Specialist
Please use your independent medical judgment in providing your response.
[2024-08-25 09:54] LABS: Blood Urea Nitrogen 33 mg/dl (7-17); Calcium 9.5 mg/dl (8.4-10.2); Carbon Dioxide 23 mmol/L (22-30); Chloride 108 mmol/L (98-107); Estimated Creatinine Clearance 20 ml/min; Glucose 91 mg/dl (70-99); Potassium 3.9 mmol/L (3.5-5.1); Sodium 146 mmol/L (135-145)
[2024-08-25 11:55] VITALS: BP 153/61
[2024-08-25] MEDS: PLAVIX 75 MG PO (12:36)
[2024-08-25 15:06] VITALS: BP 117/50
--- NOTE | 2024-08-25 17:32 | W.PN.HOSP.TC ---
Today's Communication/Plan
-
Observe off antibiotics
Trial of voiding.
Physical therapy.
Discharge planning likely to shelter facility
Assessment / Plan
Assessment / Plan
Fall at Home
Chronic Dizziness
Chronic Diplopia
- Admit for further evaluation and treatment.
- Patient attributes fall to chronic dizziness that has been worse over the past 2 weeks or so.'
- CT done in the ED was unremarkable. Acute CVA seems unlikely with current symptoms / presentation.
-MRI of the brain with no acute abnormalities
- PT evaluated and requires rehab placement
Presumed UTI
Urine culture with streptococcal species. Possibly contamination
Repeated urine culture with no growth
Antibiotics discontinued on 08/25.
Acute urinary retention
Initiate trial of voiding on 08/25.
CKD stage III. Baseline creatinine 1.2�1.5
Metabolic acidosis? Chronic
Status post IV fluids with bicarb. Monitor off IV fluids
Hyperkalemia
Hold further ARB
Mild Bradycardia
- HR in the ED in the 50s - 60s with complaints of chronic dizziness.
- Improved.
Resume Coreg and monitor
ASCVD
Left renal artery stenosis status post stenting 2011. On DAPT prior to presentation. Will transition to Plavix alone.
Benign Hypertension
- Stable. Hold amlodipine for now.
Resume Coreg and monitor for recurrent bradycardia
Normocytic Anemia
Melena
- Patient reports dark stools x months.
- Check FOBT
-Hemoglobin stable
Continue PPI
Dysarthria
- Speech changes seem coincident with new dentures received within the past week.
- Check MRI as noted above though CVA seems less likely.
DVT Prophylaxis: SCDs
Code Status: DNR - daughter brought in living will.
Anticipated Discharge: 24 - 48 hours
Subjective/Interval History
-
Date of Service: August 25, 2024
Objective Data
-
Labs:
Laboratory Results
08/25/24
08:07
WBC 7.5
Hgb 11.4 L
Hct 34.5 L
Plt Count 135
Sodium 146 H
Potassium 3.9
Chloride 108 H
Carbon Dioxide 23
BUN 33 H
Creatinine 1.8 H
Glucose 91
Calcium 9.5
Vital Signs:
Vital Signs
Temp Pulse Resp BP Pulse Ox
97.8 F 80 16 117/50 95
08/25/24 15:06 08/25/24 15:06 08/25/24 15:06 08/25/24 15:06 08/25/24 15:06
I&O
08/24/24 08/25/24 08/26/24
06:59 06:59 06:59
Intake Total 2660 / 2660 1360 / 1360
Output Total 4300 / 4300 1600 / 1600
Balance -1640 / -1640 -240 / -240
Physical Exam
-
General: No Apparent Distress and Comfortable
HEENT: Negative Oxygen
Respiratory: Clear to Auscultation and Other (Left lower rib pain)
Cardiac: Regular Rhythm and S1/S2; Negative Murmur or Rub
GI: Soft, Nontender and Nondistended
Musculoskeletal: No Edema
Neuro: Awake, Alert, Oriented, No Motor Deficits and Nonfocal/Grossly Intact
Psych: Calm
[2024-08-25] MEDS: REMERON 7.5 MG PO (23:04)
[2024-08-25] MEDS: ABILIFY 2 MG PO (23:04)
[2024-08-25] MEDS: XALATAN OPHTHALMIC SOLUTION 1 DROP BOTH EYES (23:05)
[2024-08-25] MEDS: NEURONTIN 100 MG PO (23:05)
[2024-08-25 23:23] VITALS: BP 145/68
--- NOTE | 2024-08-26 05:46 | PTCARENOTE ---
Pt ambulated to bathroom and voided 75ml urine. Bladder scan revealed 540ml. Straight cathed for 575ml yellow urine.
[2024-08-26 06:00] VITALS: BMI 22.3
[2024-08-26 07:00] VITALS: BP 159/78
[2024-08-26] MEDS: PROTONIX 40 MG PO (09:24)
[2024-08-26] MEDS: DESENEX/MITRAZOL/ZEASORB 1 APPLIC TOPICAL ×2 (09:24→20:26)
[2024-08-26] MEDS: CRESTOR 10 MG PO (09:24)
[2024-08-26] MEDS: COREG 6.25 MG PO ×2 (09:24→20:25)
[2024-08-26] MEDS: EFFEXOR 50 MG PO (09:24)
[2024-08-26] MEDS: PLAVIX 75 MG PO (12:34)
--- NOTE | 2024-08-26 14:43 | CM ---
Addendum entered by Ilene Prasad 08/26/24 16:31:
Referral sent to [facility]; awaiting response. CM will continue to follow for available SNF bed at discharge.
Addendum entered by Ilene Prasad 08/26/24 15:25:
Continuing bed search for transfer to SNF. Referral sent to [facility], awaiting response. [facility] is reviewing the clinical for possible admission. [facility] still does not have bed availability. [facility] has filled the bed
previously offered.
Original Note:
Lorna was offered a bed at [facility] for transfer today, however it is on the alf care wing and is a private room. CM called her daughter Darlene to make her aware of same; during our previous conversation [facility] was her first
choice, however she would prefer her mother be on the skilled unit, so wants to consider other options. I contacted [facility]; no beds available there.
Plan: CM will continue to seek available SNF bed for Lorna.
[2024-08-26] MEDS: FLOMAX 0.4 MG PO (15:37)
[2024-08-26 15:44] VITALS: BP 120/55
[2024-08-26 16:14] VITALS: BP 111/61; BP 123/65; BP 129/68; BP 142/60; PULSE 65; PULSE 76; O2SAT 94
--- NOTE | 2024-08-26 17:55 | W.PN.HOSP.TC ---
Today's Communication/Plan
-
Remains with urinary retention.
Jones catheter
Flomax
Discharge planing
Assessment / Plan
Assessment / Plan
Fall at Home
Chronic Dizziness
Chronic Diplopia
- Admit for further evaluation and treatment.
- Patient attributes fall to chronic dizziness that has been worse over the past 2 weeks or so.'
- CT done in the ED was unremarkable. Acute CVA seems unlikely with current symptoms / presentation.
-MRI of the brain with no acute abnormalities
- PT evaluated and requires rehab placement
Presumed UTI
Urine culture with streptococcal species. Possibly contamination
Repeated urine culture with no growth
Antibiotics discontinued on 08/25.
Acute urinary retention
Recurrent retention a trial of voiding on 08/26. Jones catheter reinserted initiated on Flomax.
CKD stage III. Baseline creatinine 1.2�1.5
Metabolic acidosis? Chronic
Status post IV fluids with bicarb. Monitor off IV fluids
Hyperkalemia
Hold further ARB
Mild Bradycardia
- HR in the ED in the 50s - 60s with complaints of chronic dizziness.
- Improved.
Resume Coreg and monitor
ASCVD
Left renal artery stenosis status post stenting 2011. On DAPT prior to presentation. Will transition to Plavix alone.
Benign Hypertension
- Stable. Hold amlodipine for now.
Resume Coreg and monitor for recurrent bradycardia
Normocytic Anemia
Melena
- Patient reports dark stools x months.
- Check FOBT
-Hemoglobin stable
Continue PPI
Dysarthria
- Speech changes seem coincident with new dentures received within the past week.
- Check MRI as noted above though CVA seems less likely.
DVT Prophylaxis: SCDs
Code Status: DNR - daughter brought in living will.
Anticipated Discharge: 24 - 48 hours
Subjective/Interval History
-
Date of Service: August 26, 2024
Objective Data
-
Vital Signs:
Vital Signs
Temp Pulse Resp BP Pulse Ox
97.5 F 70 18 120/55 95
08/26/24 15:44 08/26/24 15:44 08/26/24 15:44 08/26/24 15:44 08/26/24 15:44
I&O
08/25/24 08/26/24 08/27/24
06:59 06:59 06:59
Intake Total 1360 / 1360 580 / 580 780 / 780
Output Total 1600 / 1600 1100 / 1100
Balance -240 / -240 -520 / -520 780 / 780
Physical Exam
-
General: No Apparent Distress and Comfortable
HEENT: Negative Oxygen
Respiratory: Clear to Auscultation and Other (Left lower rib pain)
Cardiac: Regular Rhythm and S1/S2; Negative Murmur or Rub
GI: Soft, Nontender and Nondistended
Musculoskeletal: No Edema
Neuro: Awake, Alert, Oriented, No Motor Deficits and Nonfocal/Grossly Intact
Psych: Calm
[2024-08-26] MEDS: XALATAN OPHTHALMIC SOLUTION 1 DROP BOTH EYES (20:25)
[2024-08-26] MEDS: REMERON 7.5 MG PO (20:25)
[2024-08-26] MEDS: NEURONTIN 100 MG PO (20:25)
[2024-08-26] MEDS: ABILIFY 2 MG PO (20:25)
[2024-08-26 23:50] VITALS: BP 133/66
--- NOTE | 2024-08-27 00:43 | PTCARENOTE ---
Patient found to have a rectal temp of 95.2 F. QUAIL FARMER aware, Bear Hugger ordered. Goal temp of 97 F. Patient educated on purpose of Bear Hugger. Call palacios is within reach.
[2024-08-27 06:00] VITALS: BMI 22.2
[2024-08-27 07:05] VITALS: BP 136/64
[2024-08-27] MEDS: FLOMAX 0.4 MG PO (08:35)
[2024-08-27] MEDS: EFFEXOR 50 MG PO (08:35)
[2024-08-27] MEDS: CRESTOR 10 MG PO (08:36)
[2024-08-27] MEDS: PROTONIX 40 MG PO (08:36)
[2024-08-27] MEDS: DESENEX/MITRAZOL/ZEASORB 1 APPLIC TOPICAL ×2 (08:36→20:34)
[2024-08-27] MEDS: COREG 6.25 MG PO ×2 (08:36→20:34)
[2024-08-27] MEDS: FLUSH (NSS) 1 FLUSH IV ×2 (09:00→09:01)
--- NOTE | 2024-08-27 11:18 | CM ---
Lorna was accepted for transfer to [facility]. IVAN spoke with her daughter who chose [facility] for transfer. Dr. Vidal made aware of bed availability and anticipates discharge today.
I met with Lorna to make her aware of the plans. She seems in good spirits today and was agreeable to transfer to [facility]. When asked if there was anything she needed while I was in the room, she joked and said 'a new set of eyes' and gave a
chuckle.
IVAN to coordinate transfer/transportation once [facility] admissions confirms.
--- NOTE | 2024-08-27 11:37 | CM ---
Addendum entered by Ilene Prasad 08/27/24 17:52:
Daughter giving push back about w/c van cost; stating in the past she was sent by ambulance and insurance paid. I provided her with the criteria for ambulance and since her mother sits in the chair all day, she does not qualify for ambulance.
Addendum entered by Ilene Prasad 08/27/24 14:08:
CM contacted by [facility] regarding transfer. Available bed will not be vacated and cleaned until late this evening. Plan for transfer to [facility] tomorrow morning; requesting w/c van for 10am roll picker. Cost of w/c van $85. Daughter will be notified
once transport has been confirmed.
Original Note:
Lorna was accepted for transfer to [facility]. IVAN spoke with her daughter who chose [facility] for transfer. Dr. Vidal made aware of bed availability and anticipates discharge today.
I met with Lorna to make her aware of the plans. She seems in good spirits today and was agreeable to transfer to [facility].
CM to coordinate transfer/transportation once [facility] admissions confirms.
[2024-08-27 11:55] VITALS: BP 119/57
--- NOTE | 2024-08-27 11:58 | PN.CDI ---
CDI
- -
CDI:
Physician Documentation Request
Admit Date: 08/22/24 02:51
Dear Doctor Young,
Please review the following and provide your response in the progress notes.
Clinical Indicators:
- 08/26 PN 'CKD stage III. Baseline creatinine 1.2�1.5'
- 'Status post IV fluids with bicarb. Monitor off IV fluids'
- 08/25 Creatinine increase from 1.5 to 1.8
Laboratory Tests
08/23/24 08/24/24 08/25/24
07:05 06:43 08:07
Creatinine 1.4 H 1.5 H 1.8 H
eGFR 35.96 33.10 26.60
Please clarify which of the following accurately represents the patient's renal status:
CAROLE on CKD 3a
CAROLE on CKD 3b
Other
Criteria for CAROLE*
1 Increase in serum creatinine by > or = to 0.3 mg/dL (> or = to 26.5 micromol/L) within 48 hours, OR
2 Increase in serum creatinine to > or = to 1.5 times baseline, which is known or presumed to have occurred within 7 days, OR
3 Urine volume < 0.5 nL/kg/hour for six hours
Stages of Chronic Kidney Disease*
Level Description GFR
G1 Normal or High >90
G2 Mildly decreased 60-89
G3a Mildly to moderately decreased 45-59
G3b Moderately to severely decreased 30-44
G4 Severely decreased 15-29
G5 Kidney failure <15
Use of terms such as suspected, likely, concern for, or probable (associated with a specific diagnosis that is being evaluated, monitored, or treated as if it exists) are acceptable and can be coded in the inpatient setting, when documented at the
time of discharge.
Thank you,
Kaveh Corbin RN
CDI Specialist
Please use your independent medical judgment in providing your response.
*Source: Kidney Disease: Improving Global Outcomes (KDIGO) 2012
[2024-08-27] MEDS: PLAVIX 75 MG PO (12:43)
[2024-08-27 15:00] VITALS: BP 145/64
--- NOTE | 2024-08-27 16:15 | W.PN.HOSP.TC ---
Today's Communication/Plan
-
Maintain Jones catheter for acute retention
Continue Flomax
Pending placement to assisted facility
Assessment / Plan
Assessment / Plan
Fall at Home
Chronic Dizziness
Chronic Diplopia
- Admit for further evaluation and treatment.
- Patient attributes fall to chronic dizziness that has been worse over the past 2 weeks or so.'
- CT done in the ED was unremarkable. Acute CVA seems unlikely with current symptoms / presentation.
-MRI of the brain with no acute abnormalities
- PT evaluated and requires rehab placement
Presumed UTI
Urine culture with streptococcal species. Possibly contamination
Repeated urine culture with no growth
Antibiotics discontinued on 08/25.
Acute urinary retention
Recurrent retention a trial of voiding on 08/26. Jones catheter reinserted initiated on Flomax.
CKD stage III. Baseline creatinine 1.2�1.5
Metabolic acidosis? Chronic
Status post IV fluids with bicarb. Monitor off IV fluids
Hyperkalemia
Hold further ARB
Mild Bradycardia
- HR in the ED in the 50s - 60s with complaints of chronic dizziness.
- Improved.
Resume Coreg and monitor
ASCVD
Left renal artery stenosis status post stenting 2011. On DAPT prior to presentation. Will transition to Plavix alone.
Benign Hypertension
- Stable. Hold amlodipine for now.
Resume Coreg and monitor for recurrent bradycardia
Normocytic Anemia
Melena
- Patient reports dark stools x months.
- Check FOBT
-Hemoglobin stable
Continue PPI
Dysarthria
- Speech changes seem coincident with new dentures received within the past week.
- Check MRI as noted above though CVA seems less likely.
DVT Prophylaxis: SCDs
Code Status: DNR - daughter brought in living will.
Anticipated Discharge: Within 24 hours
Subjective/Interval History
-
Date of Service: August 27, 2024
Objective Data
-
Vital Signs:
Vital Signs
Temp Pulse Resp BP Pulse Ox
97.6 F 69 22 145/64 97
08/27/24 15:00 08/27/24 15:00 08/27/24 15:00 08/27/24 15:00 08/27/24 15:00
I&O
08/26/24 08/27/24 08/28/24
06:59 06:59 06:59
Intake Total 580 / 580 780 / 780
Output Total 1100 / 1100 1050 / 1050
Balance -520 / -520 -270 / -270
Physical Exam
-
General: No Apparent Distress and Comfortable
HEENT: Negative Oxygen
Respiratory: Clear to Auscultation and Other (Left lower rib pain)
Cardiac: Regular Rhythm and S1/S2; Negative Murmur or Rub
GI: Soft, Nontender and Nondistended
Musculoskeletal: No Edema
Neuro: Awake, Alert, Oriented, No Motor Deficits and Nonfocal/Grossly Intact
Psych: Calm
[2024-08-27] MEDS: REMERON 7.5 MG PO (21:11)
[2024-08-27] MEDS: XALATAN OPHTHALMIC SOLUTION 1 DROP BOTH EYES (21:12)
[2024-08-27] MEDS: NEURONTIN 100 MG PO (21:12)
[2024-08-27] MEDS: ABILIFY 2 MG PO (21:12)
[2024-08-27 23:21] VITALS: BP 117/54
[2024-08-28 06:00] VITALS: BMI 21.7
[2024-08-28 07:00] VITALS: BP 134/55
[2024-08-28 08:12] VITALS: BP 121/68; BP 135/55; BP 98/51; PULSE 80; PULSE 91; PULSE 96
[2024-08-28] MEDS: PROTONIX 40 MG PO (10:27)
[2024-08-28] MEDS: CRESTOR 10 MG PO (10:28)
[2024-08-28] MEDS: FLOMAX 0.4 MG PO (10:28)
[2024-08-28] MEDS: COREG 6.25 MG PO (10:28)
[2024-08-28] MEDS: EFFEXOR 50 MG PO (10:28)
[2024-08-28] MEDS: DESENEX/MITRAZOL/ZEASORB 1 APPLIC TOPICAL (10:30)
--- NOTE | 2024-08-28 13:07 | W.DS.TRANS ---
DC Summary - [facility]
-
Discharge Instructions:
Discharge Diagnosis/Procedures Falls
Acute urinary retention.
Diet Regular
Instructions:
Stand-Alone Forms:
Changes to Home Medications: Yes
Discharge Medications:
DC Medications w/original date entered in [facility]
cholecalciferol (vitamin D3) 25 mcg (1,000 unit) tablet 1,000 units PO DAILY@1200 Supplement 05/03/20
mirtazapine 15 mg tablet 7.5 mg PO HS Sleep 05/03/20
pantoprazole 40 mg tablet,delayed release 40 mg PO DAILY Gastrointestinal issue 05/03/20
venlafaxine 25 mg tablet 50 mg PO DAILY Mental Health/Anxiety 05/03/20
amlodipine 10 mg tablet (Norvasc) 10 mg PO DAILY #30 tabs 05/07/20
carvedilol 6.25 mg tablet 6.25 mg PO BID #60 tabs 05/07/20
clopidogrel 75 mg tablet 75 mg PO DAILY@1200 Blood clot prevention/tx ##0 05/07/20
rosuvastatin 10 mg tablet 10 mg PO DAILY High Cholesterol 06/12/24
acetaminophen 500 mg tablet (Tylenol Extra Strength) 1,000 mg (2 x 500 mg) PO TID #10 tabs 06/17/24
aripiprazole 2 mg tablet 2 mg PO HS #30 tabs 06/17/24
gabapentin 100 mg capsule 100 mg PO HS #20 caps 06/17/24
lidocaine 4 % topical patch 1 patch topical DAILY #10 ea 06/17/24
aspirin 81 mg tablet,delayed release 81 mg PO DAILY Blood Clot Prevention/Tx 08/22/24
latanoprost 0.005 % eye drops (Xalatan) 1 drp ophthalmic (eye) DAILY Eye Condition 08/22/24
polyethylene glycol 3350 17 gram oral powder packet (HealthyLax) 17 g PO DAILY PRN constipation 08/22/24
tamsulosin 0.4 mg capsule 0.4 mg PO DAILY #30 caps 08/28/24
Home Medication Changes
Losartan stopped
Flomax initiated with acute urinary retention
Pending Results: No
[2024-08-28] MEDS: PLAVIX 75 MG PO (13:17)
[2024-08-28] MEDS: MIRALAX 17 GRAMS PO (13:29)
[2024-08-28 13:35] VITALS: BP 107/49
--- NOTE | 2024-08-28 15:31 | CM ---
Reviewed the chart notes and spoke with the patient at the bedside. IMM reviewed and placed on chart. The patient is discharged to [facility] today via w/c van.
Plan: Discharge to [facility] today.
Call report to: [phone]
Fax report to: [phone]
== END 2024-08-28 13:58 | DRG 696 ==
LOC: 4 EAST ACU 02:51
PROVIDERS: Emergency Medicine; Hospitalist; ADMITTING PHYSICIAN Hospitalist; ATTENDING PHYSICIAN Internal Medicine; EMERGENCY PHYSICIAN Emergency Medicine; FAMILY PHYSICIAN Nurse Practitioner Adult Health
DX: R33.8 Other retention of urine (principal); E87.20 Acidosis, unspecified; K92.1 Melena; I12.9 Hypertensive chronic kidney disease with stage 1 through stage 4 chronic kidney disease, or unspecified chronic kidney disease; N18.31 Chronic kidney disease, stage 3a; D63.1 Anemia in chronic kidney disease; Z66 Do not resuscitate; H53.2 Diplopia; R00.1 Bradycardia, unspecified; I25.10 Atherosclerotic heart disease of native coronary artery without angina pectoris; E78.00 Pure hypercholesterolemia, unspecified; G31.84 Mild cognitive impairment of uncertain or unknown etiology; R47.1 Dysarthria and anarthria; F32.9 Major depressive disorder, single episode, unspecified; F41.9 Anxiety disorder, unspecified; H54.8 Legal blindness, as defined in USA; R32 Unspecified urinary incontinence; Z87.891 Personal history of nicotine dependence; Z86.73 Personal history of transient ischemic attack (TIA), and cerebral infarction without residual deficits; Z88.1 Allergy status to other antibiotic agents; Z88.5 Allergy status to narcotic agent; Z88.8 Allergy status to other drugs, medicaments and biological substances; Z79.82 Long term (current) use of aspirin; Z79.02 Long term (current) use of antithrombotics/antiplatelets; Z79.899 Other long term (current) drug therapy; Z11.52 Encounter for screening for COVID-19; Z22.338 Carrier of other streptococcus
CPT/HCPCS: 70450; 70551; 80048; 80053; 81003; 81015; 83540; 83550; 84484; 85025; 85027; 87077; 87086; 87811; 92526; 92610; 93005; 96361; 96365; 97116; 97163; 97167; 97530; 97535; 99285

== ENCOUNTER → 2024-08-31 17:41 | Outpatient (REF) | payer OTHER, MEDICARE, SELFPAY ==
[2024-08-31 18:56] LABS: Hematocrit 29.3 % (37.0-47.0); Hemoglobin 9.4 g/dL (12.0-16.0); Mean Corp Hgb Conc. 32.1 g/dL (33.0-37.0); Mean Corpuscular Hgb 31.3 pg (27.0-31.0); Mean Corpuscular Volume 97.7 fL (81.0-99.0); Mean Platelet Volume 11.3 fL (7.4-10.4); Platelet Count 132 10^3/uL (130-400); Red Cell Dist. Width 13.9 % (11.5-14.5); White Blood Cell Count 6.6 10^3/uL (4.8-10.8)
[2024-08-31 19:03] LABS: ALT (SGPT) 25 U/L (0-35); AST (SGOT) 25 U/L (14-36); Alkaline Phosphatase 64 U/L (38-126); Blood Urea Nitrogen 46 mg/dl (7-17); Calcium 9.3 mg/dl (8.4-10.2); Carbon Dioxide 27 mmol/L (22-30); Chloride 105 mmol/L (98-107); Glucose 88 mg/dl (70-99); Magnesium 2.1 mg/dl (1.6-2.3); Potassium 5.4 mmol/L (3.5-5.1); Sodium 141 mmol/L (135-145); Total Bilirubin 0.2 mg/dl (0.2-1.3); Total Protein 5.6 g/dl (6.3-8.2); eGFR 28.49
== END ==
LOC: OLABWHC 17:41
PROVIDERS: ATTENDING PHYSICIAN Family Medicine
DX: D64.9 Anemia, unspecified (principal); N18.30 Chronic kidney disease, stage 3 unspecified; E87.6 Hypokalemia
CPT/HCPCS: 36415; 80053; 83735; 85027

== ENCOUNTER → 2024-10-07 09:13 | Outpatient (REF) | payer MEDICARE, OTHER, SELFPAY ==
[2024-10-07 10:54] LABS: % Basophils 0.6 % (0-2); % Eosinophils 1.8 % (0-6); % Immature Granulocytes 0.4 % (0-0.5); % Lymphocytes 21.4 % (20.5-51.1); % Neutrophils 67.8 % (42.2-75.2); Absolute Basophils 0.1 10^3/uL (0-0.2); Absolute Eosinophils 0.1 10^3/uL (0-0.7); Absolute Lymphocytes 1.7 10^3/uL (1.2-3.4); Absolute Monocytes 0.6 10^3/uL (0.1-0.6); Absolute Neutrophils 5.2 10^3/uL (1.4-6.5); Hemoglobin 11.2 g/dL (12.0-16.0); Mean Corp Hgb Conc. 31.1 g/dL (33.0-37.0); Mean Corpuscular Hgb 30.7 pg (27.0-31.0); Mean Corpuscular Volume 98.6 fL (81.0-99.0); Nucleated Red Blood Cells % 0 %; Platelet Count 226 10^3/uL (130-400); Red Blood Cell Count 3.65 10^6/uL (4.20-5.40); White Blood Cell Count 7.7 10^3/uL (4.8-10.8)
[2024-10-07 12:03] LABS: ALT (SGPT) 14 U/L (0-35); AST (SGOT) 20 U/L (14-36); Albumin 3.8 g/dl (3.5-5.0); Alkaline Phosphatase 90 U/L (38-126); Blood Urea Nitrogen 27 mg/dl (7-17); Calcium 9.4 mg/dl (8.4-10.2); Carbon Dioxide 26 mmol/L (22-30); Chloride 105 mmol/L (98-107); Glucose 104 mg/dl (70-99); HDL Cholesterol 44 mg/dl; LDL Cholesterol, Calculated 50 mg/dl; Potassium 5.1 mmol/L (3.5-5.1); Sodium 145 mmol/L (135-145); Total Bilirubin 0.3 mg/dl (0.2-1.3); Total Cholesterol 111 mg/dl (50-199); Total Protein 6.6 g/dl (6.3-8.2); Triglyceride 89 mg/dl (10-149); Very Low Density Lipoprotein 17 mg/dl (0-30); eGFR 28.49
== END ==
LOC: REG 09:13
PROVIDERS: ATTENDING PHYSICIAN Nurse Practitioner Adult Health
DX: I10 Essential (primary) hypertension (principal); Z00.00 Encounter for general adult medical examination without abnormal findings; E78.2 Mixed hyperlipidemia; R79.89 Other specified abnormal findings of blood chemistry
CPT/HCPCS: 36415; 80053; 80061; 85025

== ENCOUNTER 2024-11-04 17:46 | Observation (INO) | payer MEDICARE, OTHER, SELFPAY ==
[2024-11-04] VITALS (7 sets, daily range): BP systolic 96–141; BP diastolic 46–84; BMI 21.9
--- NOTE | 2024-11-04 11:48 | ED.GENMED ---
History of Present Illness
<Mitzi Ward PA-C - Last Filed: 11/04/24 18:35>
General
Chief Complaint: Cold/Flu/URI Symptoms
Source: patient and family (daughter at bedside)
Exam Limitations: none
Time Seen by Provider: 11/04/24 11:06
Nursing documentation reviewed up to this point in time: agreed with
History of Present Illness
History of Present Illness:
89-year-old female with history CAD, hypertension, hyperlipidemia, diabetes presenting to the emergency department via EMS from home for evaluation of recent nausea, vomiting, diarrhea and concerns of dehydration. Patient lives at home with her
physically disabled 50-year-old son. Patient states that she had diarrhea for about 4 days initially starting last Saturday. For the past few days patient has now been vomiting. Patient denies any fevers, chills, abdominal pain. She is
producing little urine although denies any dysuria or hematuria. Patient denies any hematemesis. She does have some occasional blood in her diarrhea due to internal hemorrhoids. Patient denies any chest pain or shortness of breath. No
lightheadedness or dizziness
Patient lives in a 4 story home. Both patient and her daughter agree that she is not safe to go back to her home and are seeking placement.
Past History
<Mitzi Ward PA-C - Last Filed: 11/04/24 18:35>
Past History
ED Past Medical History: CAD, HTN, Hypercholesterolemia, NIDDM and Other (Anemia)
ED Past Surgical History: Cholecystectomy, Urological (Kidney stents X3 on R and one in the L,) and Other (tubal, Carotid endarterectomy)
Patient has exhibited threatening behavior?: No
Social History
Tobacco: Former smoker
Alcohol: Occasional
Drug: None
Personal:
Living: with family
Employment: Retired
Family History
Family History: Other (Noncontributory)
Review of Systems
<Mitzi Ward PA-C - Last Filed: 11/04/24 18:35>
Review of Systems
Allergies reviewed?: Yes
All Other Systems: ROS reviewed and negative except as documented in HPI and ROS
Phy Exam
<Mitzi Ward PA-C - Last Filed: 11/04/24 18:35>
Physical Exam
Physical Exam:
Vitals: Patient's vital signs are stable.
General: Patient is frail appearing, no acute distress. Nontoxic appearing
Skin: Warm and dry, no rashes or lesions
Head: Normocephalic, atraumatic
Eyes: Sclera nonicteric. EOMs intact. No nystagmus.
Throat: Dry mucous membranes. Protecting airway
Neck: Normal ROM, no cervical spine tenderness, no meningismus. No JVD
Cardiac: Regular rate and rhythm, no murmurs.
Pulm: Normal respiratory effort, no wheezes, rales, rhonchi heard on exam.
Abdomen: Abdomen soft. Mild diffuse abdominal tenderness without rebound tenderness or guarding.
Extremities: No evidence of cyanosis or edema. Palpable DP pulses bilaterally
Neuro: AAOx3. Grossly intact.
Psychiatric: Normal affect.
Course
<Mitzi Ward PA-C - Last Filed: 11/04/24 18:35>
Orders/Labs/Results
Orders:
Orders
11/04/24 11:27
Electrocardiogram (*1) Urgent
Reason for Study: Fatigue / Weakness
EKG- Treatment ONCE
0.9% Sodium Chloride 1000 ml [Nss] 1,000 ml IV BOLUS
11/04/24 11:28
Case Management Consult ONCE
Case Management Consult: Discharge Planning
PT Consult [Pt Eval And Treat] Urgent
Activity Level: As Tolerated
11/04/24 11:29
Ondansetron Injectable [Zofran] 4 mg IV NOW STA
11/04/24 11:43
Basic Metabolic Panel Urgent
Complete Blood Count/With Diff Urgent
Lipase Urgent
11/04/24 12:38
CT Abd/Pel (IV only)-DH only Urgent
Comment:
Reason For Exam: right abdominal pain, N/V
Diphenhydramine [Benadryl] 50 mg IV NOW STA
Hydrocortisone Sod Succinate [Solu-Cortef] 200 mg IV NOW STA
11/04/24 13:10
Comprehensive Metabolic Panel Urgent
Magnesium Urgent
11/04/24 17:13
Stool Culture Routine
ELISA Source: Feces/Stool
Specimen Description:
Stool For WBC Routine
ELISA Source: Feces/Stool
Specimen Description:
Bladder Scan As Directed
Follow Bladder Retention/Intermittent Cath Algorithm?: Yes
PRN if no void in __ hours: 6
Frequency: Per Retention Algorithm
If Bladder Scan Result >: 400
then:: Straight cath
Straight Cath As Directed
Frequency: Per Retention Algorithm
Additional Instructions: straight cath as needed per acute urinary retention algorithm for 24 hrs
Additional Instructions: for bladder scan greater than 400 mL
11/04/24 17:15
0.9% Sodium Chloride 1000 ml [Nss] 1,000 ml IV 80 mls/hr
11/04/24 17:24
Admit/Transfer Patient As Directed
Co-Sign Provider:
Level of Care: Observation services
Assign to:: Medical/Surgical
Physician / Group: prema boston
Diagnosis: acute viral gastroenteritis, self-care deficit with cognitive dysfunction
Code Status As Directed
Resuscitation Status: Do not resuscitate
Reached after discussion with pt or family/Healthcare POA: Yes
Based on pt advanced directive or healthcare POA form: Yes
Decision communicated with: Per daughter Darlene via phone who is POA
DNR Bracelet Application ONCE
11/04/24 17:30
PRN Pain Medication Management As Directed
May give lesser potent ordered pain med per pt: Yes
preference::
Protocol:: Medication orders for pain may be administered in a
manner that supports deferring to patient preference
when the pt is:
- Requesting an ordered lesser potent pain medication.
Least to most potent pain medications are defined
as: acetaminophen < NSAID < tramadol < opioids
(morphine, oxycodone, hydromorphone).
- Requesting a lesser dose of the same medication IF
ORDERED.
- Requesting a less intrusive route of administration
if both routes are prescribed by the provider (PO <
IV).
11/04/24 17:38
Urinalysis Reflex To Culture Urgent
Date Specimen was Collected: 11/04/24
Time Specimen was Collected: 17:36
Urine Microscopic Reflex Cult Urgent
Urine Culture Urgent
ELISA Source: U
Specimen Description:
Date Specimen was Collected: 11/04/24
Time Specimen was Collected: 17:36
Abnormal Lab Results
11/04/24 11/04/24 11/04/24
11:43 13:10 17:38
MCHC 32.7 L g/dL
(33.0-37.0)
Abs Immat Gran (auto) 0.1 H 10^3/uL
(0-0.05)
Absolute Neuts (auto) 7.7 H 10^3/uL
(1.4-6.5)
Absolute Lymphs (auto) 0.4 L 10^3/uL
(1.2-3.4)
Immature Gran % 0.7 H %
(0-0.5)
Neutrophils % 86.9 H %
(42.2-75.2)
Lymphocytes % 4.8 L %
(20.5-51.1)
BUN 36 H mg/dl 35 H mg/dl
(7-17) (7-17)
Creatinine 1.5 H mg/dL 1.5 H mg/dL
(0.6-1.0) (0.6-1.0)
Glucose 102 H mg/dl 100 H mg/dl
(70-99) (70-99)
Urine Nitrite (Reflex) Positive A
(Negative)
Urine Bacteria (Reflex) Many A
(Negative)
11/04/24 11:43
11/04/24 13:10
Vital Signs
Initial and Last Documented VS:
Initial Vital Signs
Temp Pulse Resp BP Pulse Ox
98.4 F 84 18 123/69 99
11/04/24 09:27 11/04/24 09:27 11/04/24 09:27 11/04/24 09:27 11/04/24 09:27
Last Documented Vital Signs
Temp Pulse Resp BP Pulse Ox
98.4 F 82 16 141/68 93
11/04/24 09:27 11/04/24 17:41 11/04/24 17:41 11/04/24 17:41 11/04/24 17:41
<Ludwin Vance MD - Last Filed: 11/04/24 12:40>
Orders/Labs/Results
Orders:
Orders
11/04/24 11:27
Electrocardiogram (*1) Urgent
Reason for Study: Fatigue / Weakness
EKG- Treatment ONCE
0.9% Sodium Chloride 1000 ml [Nss] 1,000 ml IV BOLUS
11/04/24 11:28
Case Management Consult ONCE
Case Management Consult: Discharge Planning
PT Consult [Pt Eval And Treat] Urgent
Activity Level: As Tolerated
11/04/24 11:29
Ondansetron Injectable [Zofran] 4 mg IV NOW STA
11/04/24 11:43
Basic Metabolic Panel Urgent
Complete Blood Count/With Diff Urgent
Lipase Urgent
11/04/24 12:38
CT Abd/Pel (IV only)-DH only Urgent
Comment:
Reason For Exam: right abdominal pain, N/V
Diphenhydramine [Benadryl] 50 mg IV NOW STA
Hydrocortisone Sod Succinate [Solu-Cortef] 200 mg IV NOW STA
11/04/24 13:10
Comprehensive Metabolic Panel Urgent
Magnesium Urgent
11/04/24 17:13
Stool Culture Routine
ELISA Source: Feces/Stool
Specimen Description:
Stool For WBC Routine
ELISA Source: Feces/Stool
Specimen Description:
Bladder Scan As Directed
Follow Bladder Retention/Intermittent Cath Algorithm?: Yes
PRN if no void in __ hours: 6
Frequency: Per Retention Algorithm
If Bladder Scan Result >: 400
then:: Straight cath
Straight Cath As Directed
Frequency: Per Retention Algorithm
Additional Instructions: straight cath as needed per acute urinary retention algorithm for 24 hrs
Additional Instructions: for bladder scan greater than 400 mL
11/04/24 17:15
0.9% Sodium Chloride 1000 ml [Nss] 1,000 ml IV 80 mls/hr
11/04/24 17:24
Admit/Transfer Patient As Directed
Co-Sign Provider:
Level of Care: Observation services
Assign to:: Medical/Surgical
Physician / Group: prema bostno
Diagnosis: acute viral gastroenteritis, self-care deficit with cognitive dysfunction
Code Status As Directed
Resuscitation Status: Do not resuscitate
Reached after discussion with pt or family/Healthcare POA: Yes
Based on pt advanced directive or healthcare POA form: Yes
Decision communicated with: Per daughter Darlene via phone who is POA
DNR Bracelet Application ONCE
11/04/24 17:30
PRN Pain Medication Management As Directed
May give lesser potent ordered pain med per pt: Yes
preference::
Protocol:: Medication orders for pain may be administered in a
manner that supports deferring to patient preference
when the pt is:
- Requesting an ordered lesser potent pain medication.
Least to most potent pain medications are defined
as: acetaminophen < NSAID < tramadol < opioids
(morphine, oxycodone, hydromorphone).
- Requesting a lesser dose of the same medication IF
ORDERED.
- Requesting a less intrusive route of administration
if both routes are prescribed by the provider (PO <
IV).
11/04/24 17:38
Urinalysis Reflex To Culture Urgent
Date Specimen was Collected: 11/04/24
Time Specimen was Collected: 17:36
Urine Microscopic Reflex Cult Urgent
Urine Culture Urgent
ELISA Source: U
Specimen Description:
Date Specimen was Collected: 11/04/24
Time Specimen was Collected: 17:36
Abnormal Lab Results
11/04/24 11/04/24 11/04/24
11:43 13:10 17:38
MCHC 32.7 L g/dL
(33.0-37.0)
Abs Immat Gran (auto) 0.1 H 10^3/uL
(0-0.05)
Absolute Neuts (auto) 7.7 H 10^3/uL
(1.4-6.5)
Absolute Lymphs (auto) 0.4 L 10^3/uL
(1.2-3.4)
Immature Gran % 0.7 H %
(0-0.5)
Neutrophils % 86.9 H %
(42.2-75.2)
Lymphocytes % 4.8 L %
(20.5-51.1)
BUN 36 H mg/dl 35 H mg/dl
(7-17) (7-17)
Creatinine 1.5 H mg/dL 1.5 H mg/dL
(0.6-1.0) (0.6-1.0)
Glucose 102 H mg/dl 100 H mg/dl
(70-99) (70-99)
Urine Nitrite (Reflex) Positive A
(Negative)
Urine Bacteria (Reflex) Many A
(Negative)
11/04/24 11:43
11/04/24 13:10
Vital Signs
Initial and Last Documented VS:
Initial Vital Signs
Temp Pulse Resp BP Pulse Ox
98.4 F 84 18 123/69 99
11/04/24 09:27 11/04/24 09:27 11/04/24 09:27 11/04/24 09:27 11/04/24 09:27
Last Documented Vital Signs
Temp Pulse Resp BP Pulse Ox
98.4 F 82 16 141/68 93
11/04/24 09:27 11/04/24 17:41 11/04/24 17:41 11/04/24 17:41 11/04/24 17:41
<Mitzi Ward PA-C - Last Filed: 11/04/24 18:35>
MDM/Problems Addressed
Differential Diagnosis Includes:
Not limited to: Acute dehydration, viral gastroenteritis, UTI, colitis, diverticulitis, etc.
MDM/Problems Addressed:
89-year-old female presenting with recent nausea, vomiting, diarrhea and concerns for dehydration. Patient does live at home in a 4 story home where her daughter and patient agree that she is not safe. Patient denies any recent fever or true
abdominal pain. Vitals are stable. Patient is afebrile. On exam�patient is generally frail appearing although in no apparent distress. Abdomen is soft with mild diffuse tenderness. Dry mucous membranes. Cardio/pulmonary assessment
unremarkable. Patient is perfusing well. Will obtain basic labs and urinalysis. Will check CT abdomen/pelvis. Will give liter of IV fluids. Will consult both PT and case management to assist in possible placement. Will closely monitor and
reassess.
Chronic conditions affecting care:
CAD, hypertension, hyperlipidemia, diverticulitis, diabetes
Acute Exacerbation and/or Progression of Chronic Illness:
N/A
<Mitzi Ward PA-C - Last Filed: 11/04/24 18:35>
*Radiology
Radiology exam reviewed: radiology read reviewed
*Pulse Oximetry
Patient hypoxic: no
*EKG
Interpreted by ED Provider?: Yes
EKG Intrepretation Date: 11/04/24
Interpretation: abnormal
Comparison EKG: no changes
Heart Rate: 84
Rate: normal
Rhythm: sinus
Exline: left axis deviation
Interval: normal QT interval
QRS Pattern: normal QRS
Ischemia: non-specific ST changes
*Transfer Worker Interpretation
Rate: Transfer Worker- N/A
*Critical Care Note
Total Time (30-74mins, 75-104mins- exclusive of procedures): Not Applicable
<CHRIST Michel Last Filed: 11/04/24 18:35>
Patient Management
Discussion with other providers: Hospitalist
<Mitzi Ward PA-C - Last Filed: 11/04/24 18:35>
Update Note
Update Note:
Update: Labs noted. Mild renal insufficiency which appears stable. No other acute abnormalities noted. CT without any acute findings�did make patient's daughter aware that aneurysm appears slightly larger than prior. Suspect presenting symptoms
likely secondary to a viral gastroenteritis. Patient has been rehydrated in emergency department. Patient seen by PT who recommends inpatient treatment. Case management working on placement for patient unfortunately will not be finalized tonight.
Patient will be admitted to hospitalist service pending placement in rehab facility. Patient accepted to hospitalist service in stable condition. Urinalysis pending.
ED Attending Note
<Mitzi Ward PA-C - Last Filed: 11/04/24 18:35>
-
Portions of this chart may have been created with voice recognition software.� Occasional wrong word or��sound alike� substitutions may have occurred due to the inherent limitations of voice recognition software.
<Ludwin Vance MD - Last Filed: 11/04/24 12:40>
ED Attending Note
Patient seen and examined by attending physician: Yes
I performed the substantive portion of visit, reviewed & personally made and approve the management plan that is documented in note by myself or GENE.: Yes
ED Attending Note:
I have seen and evaluated the patient with a [id number] encounter. I have spoken to the [PA] and involved in the medical history, the physical exam, medical decision making.
Evaluation and management service: agree unless noted differently below.
Results interpretation: agree unless noted differently below.
Patient is a 89-year-old woman presenting to the emergency department with a few days of vomiting and diarrhea. She also states she is having right-sided lower quadrant abdominal pain. No fevers or chills. No chest pain or difficulty breathing.
On exam patient is resting comfortably. She does have dry oral mucosa. Her abdomen is soft nondistended with very mild right lower quadrant tenderness. Differential clues of viral gastroenteritis versus diverticulitis versus UTI. Will check
blood work urine and obtain CT scan. Will give fluids. Given patient's living situation will discuss with case management and physical therapy placement.
Discharge Plan
Departure
Patient Disposition: Admit
Date of Disposition: 11/04/24
Time of Disposition: 15:41
Presentation/result/management discussed w/ accepting MD/DO: Hospitalist
Discharge Problem:
Nausea, vomiting, and diarrhea
Interventions
Interventions:
*Risk Screen - Suicide Last Done: 11/04/24 09:27
*General Assessment Last Done: 11/04/24 09:27
*Neglect/Abuse Screening Last Done: 11/04/24 09:27
*ED COVID-19 Vaccine History Last Done: 11/04/24 11:24
ED- Pulmonary Assessment Last Done: 11/04/24 11:40
[2024-11-04] MEDS: ZOFRAN 4 MG IV (11:51)
[2024-11-04] MEDS: NSS 1000 IV ×2 (11:52→17:37)
[2024-11-04 12:17] LABS: % Basophils 0.6 % (0-2); % Immature Granulocytes 0.7 % (0-0.5); % Lymphocytes 4.8 % (20.5-51.1); % Neutrophils 86.9 % (42.2-75.2); Absolute Basophils 0.1 10^3/uL (0-0.2); Absolute Immature Granulocytes 0.1 10^3/uL (0-0.05); Absolute Lymphocytes 0.4 10^3/uL (1.2-3.4); Absolute Monocytes 0.6 10^3/uL (0.1-0.6); Absolute Neutrophils 7.7 10^3/uL (1.4-6.5); Hematocrit 40.1 % (37.0-47.0); Hemoglobin 13.1 g/dL (12.0-16.0); Mean Corp Hgb Conc. 32.7 g/dL (33.0-37.0); Mean Corpuscular Hgb 30.5 pg (27.0-31.0); Mean Corpuscular Volume 93.5 fL (81.0-99.0); Mean Platelet Volume 9.5 fL (7.4-10.4); Nucleated Red Blood Cells % 0 %; Platelet Count 208 10^3/uL (130-400); Red Blood Cell Count 4.29 10^6/uL (4.20-5.40); Red Cell Dist. Width 13.9 % (11.5-14.5); White Blood Cell Count 8.8 10^3/uL (4.8-10.8)
--- NOTE | 2024-11-04 12:29 | CM ---
CM reviewed medical records. CM met with patient in room. Patient would like daughter available for assistance with discharge planning. CM left message for daughter to discuss rehab placement.
[2024-11-04 12:35] LABS: Blood Urea Nitrogen 36 mg/dl (7-17); Calcium 9.1 mg/dl (8.4-10.2); Carbon Dioxide 22 mmol/L (22-30); Chloride 101 mmol/L (98-107); Glucose 102 mg/dl (70-99); Lipase 35 U/L (23-300); Sodium 137 mmol/L (135-145)
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
[2024-11-04] MEDS: SOLU-CORTEF 200 MG IV (13:14)
[2024-11-04 13:36] LABS: ALT (SGPT) 18 U/L (0-35); AST (SGOT) 22 U/L (14-36); Albumin 3.6 g/dl (3.5-5.0); Alkaline Phosphatase 66 U/L (38-126); Blood Urea Nitrogen 35 mg/dl (7-17); Calcium 8.8 mg/dl (8.4-10.2); Carbon Dioxide 24 mmol/L (22-30); Chloride 103 mmol/L (98-107); Glucose 100 mg/dl (70-99); Magnesium 1.9 mg/dl (1.6-2.3); Potassium 4.5 mmol/L (3.5-5.1); Sodium 137 mmol/L (135-145); Total Bilirubin 0.4 mg/dl (0.2-1.3); Total Protein 6.3 g/dl (6.3-8.2)
[2024-11-04] MEDS: BENADRYL 50 MG IV (13:43)
--- NOTE | 2024-11-04 16:22 | HPS.HSE ---
Family Physician
-
Family Physician: Chacorta Solis
Chief Complaint
-
Nausea, vomiting, diarrhea
History of Present Illness
89-year-old female who lives at home with her physically disabled 50-year-old son states she has had diarrhea starting approximately 6 days ago that was followed by a few days now of nausea and vomiting. She reports some occasional blood in her
diarrhea due to internal hemorrhoids she denies headache, fever, chills, chest pain, palpitations, shortness of breath, cough, abdominal pain, urinary symptoms. She was seen by case management also case management discussed case with patient's
daughter Darlene who was attempting to get mother into [facility] due to unsafe home conditions with stairs inability to care for self due to cognitive impairment and mentally ill disabled 50-year-old son who lives with her. Currently [place] [facility] is looking at patient's financials as she will be currently self-pay
She has past medical history of CAD, carotid stenosis status post carotid endarterectomy, HTN, HLD, DM2,, chronic mild cognitive dysfunction with dysarthria, urinary retention Dx August 2024, GERD, chronic back pain/spinal stenosis, major
depression/anxiety anemia, former smoker, renal calculi with renal stents bilateral and removal
Medical History
Past Medical History
Past Medical History: Reports Other
Additional Past Medical History:
Coronary artery disease
Hypertension
Hyperlipidemia
Spinal stenosis
Major depression
Anxiety
Cognitive impairment oriented to name, year, president not month
Chronic dysarthria
Former smoker
Chronic right hip pain
CAD
carotid stenosis status post carotid endarterectomy
urinary retention Dx August 2024
GERD
chronic back pain/spinal stenosis
major depression/anxiety
anemia
former smoker,
renal calculi with renal stents bilateral and removal
Past Surgical History: Reports Other
Additional Past Surgical History:
Cholecystectomy
Carotid endarterectomy
T&A
Social History
Tobacco: Non-smoker
Alcohol: None
Drug: None
Personal: Single
Living: With Family
Family History
Family History: Not pertinent
Allergies / Home Medications
Allergies reflects when Allergies were last updated in [facility].
Home Medications with original date entered in [facility]
Allergy/Medication List:
Allergies
Allergy/AdvReac Type Severity Reaction Status Date / Time
cefuroxime axetil Allergy Intermediate Rash Verified 07/08/24 07:18
[From Ceftin]
codeine Allergy Hives Verified 07/08/24 07:18
Iodinated Contrast Media Allergy Hives Verified 07/08/24 07:18
[IV Dye, Iodine Containing
Contrast ]
iodine Allergy Hives Verified 07/08/24 07:18
shellfish derived Allergy Unknown Verified 07/08/24 07:18
spironolactone Allergy Itching Verified 07/08/24 07:18
[From Aldactone]
Home Medications
cholecalciferol (vitamin D3) 25 mcg (1,000 unit) tablet 1,000 units PO DAILY@1200 Supplement 05/03/20
mirtazapine 15 mg tablet 7.5 mg PO HS Sleep 05/03/20
pantoprazole 40 mg tablet,delayed release 40 mg PO DAILY Gastrointestinal issue 05/03/20
venlafaxine 25 mg tablet 50 mg PO DAILY Mental Health/Anxiety 05/03/20
amlodipine 10 mg tablet (Norvasc) 10 mg PO DAILY #30 tabs 05/07/20
carvedilol 6.25 mg tablet 6.25 mg PO BID #60 tabs 05/07/20
clopidogrel 75 mg tablet 75 mg PO DAILY@1200 Blood clot prevention/tx ##0 05/07/20
losartan 100 mg tablet 100 mg PO DAILY Blood Pressure 06/12/24
rosuvastatin 10 mg tablet 10 mg PO DAILY High Cholesterol 06/12/24
acetaminophen 500 mg tablet (Tylenol Extra Strength) 1,000 mg (2 x 500 mg) PO TID #10 tabs 06/17/24
aripiprazole 2 mg tablet 2 mg PO HS #30 tabs 06/17/24
gabapentin 100 mg capsule 100 mg PO HS #20 caps 06/17/24
lidocaine 4 % topical patch 1 patch topical DAILY #10 ea 06/17/24
aspirin 81 mg tablet,delayed release 81 mg PO DAILY 08/22/24
latanoprost 0.005 % eye drops (Xalatan) 1 drp ophthalmic (eye) DAILY 08/22/24
polyethylene glycol 3350 17 gram oral powder packet (HealthyLax) 17 g PO DAILY PRN constipation 08/22/24
Review of Systems
-
History Source: Patient and Family (Daughter Darlene via phone)
A 12 point ROS was completed and negative except as noted: Yes
Constitutional: Denies Fever, Fatigue or Chills
EENT: Denies Sore Throat or Runny Nose
Respiratory: Denies Cough or Trouble Breathing
Cardiac: Denies Chest Pain, Diaphoresis, Palpitations or Syncope
Abdomen/GI: Reports Nausea, Vomiting and Diarrhea (Pudding-like per patient); Denies Abdominal Pain, Constipated, Bloody Stools or Black Stools
: Denies Dysuria, Frequency, Flank Pain, Incontinence, Difficulty Voiding or Urgency
Musculoskeletal: Denies Joint Pain, Joint Swelling or Edema
Skin: Denies Itching or Rash
Neurological: Denies Dizzy, Headache or Weakness
Endocrine: Reports No Symptoms
Psych: Reports Calm
Physical Exam
Vital Signs
Vital Signs
Temp Pulse Resp BP Pulse Ox
98.4 F 77 18 128/78 95
11/04/24 09:27 11/04/24 14:00 11/04/24 14:00 11/04/24 14:00 11/04/24 14:00
Physical Exam
General: Comfortable, Conversant and Other (Oriented to name, place, 2023, president but not month or past history/medications); No Pain, Fever or Chills
HEENT: NormoCephalic, Anicteric, PERRLA, [place] Conjunctivae, No Ptosis and Other (Dry oral mucosa)
Respiratory: Clear; No Wheezes, Rales or Rhonchi
Cardiac: S1/S2 and Regular Rhythm; No Murmur, Rub, Gallop or Peripheral Edema
Breast: Deferred by me
GI: Soft, Non Tender, Non Distended, Normal Bowel Sounds and No Hepatosplenomegaly
Rectal: Deferred by Provider
Genito-urinary: No costovertebral tender
Musculoskeletal: No Clubbing, No Cyanosis and No Edema
Skin: Warm and Dry; No Rash or Jaundice
Neuro: Awake, Alert, Oriented (Oriented to name, place, 2023, president but not month or past history/medications), No Motor Deficits, Cranial Nerves Intact, No Sensory Deficits and Other (Chronic dysarthria); No Slurred Speech, Facial Droop or
Tremors
Psych: Calm
Laboratory Results
-
11/04/24 11:43
11/04/24 13:10
Laboratory Results
Total Bilirubin 0.4 mg/dl (0.2-1.3) 11/04/24 13:10
AST 22 U/L (14-36) 11/04/24 13:10
ALT 18 U/L (0-35) 11/04/24 13:10
Alkaline Phosphatase 66 U/L (38-126) 11/04/24 13:10
Lipase 35 U/L (23-300) 11/04/24 11:43
Impression/Plan
-
Impression/plan:
Observation MedSurg
#Acute viral gastroenteritis
Diarrhea x 6 days, nausea vomiting x 4
-Stool cultures, WBC, ova and parasites
-IV Zofran
-IV NSS
-Consult PT/OT/case management
CT abdomen pelvis with IV contrast only:
No evidence of acute inflammatory process of the abdomen or pelvis.
Infrarenal abdominal aortic aneurysm measuring 3.4 cm in diameter mildly increased from CT on 12/05/2014 which was 3.1 cm.
Severe chronic compression fracture of [id number] decompression of the L4 level. Posterior fusion from L3 through L5. Mild lumbar levoscoliosis.
Chronic degenerative changes of the spine, bilateral sacroiliac joints, hips, and symphysis pubis
#Chronic mild cognitive dysfunction with Chronic dysarthria
#Acute self-care deficit due to cognitive impairment, multiple stairs at home, mentally disabled son at home
Case management spoke with patient's daughter who is medical and financial power of shirt operator who has spoken with [facility] looking for private pay SNF and eventual transition to long-term care there daughter was agreeable to self-pay
according to case management. Case management spoke with Kamila at [facility] who is reviewing clinical status and discussing financial arrangement
*Awaiting possible bed at [facility]
#CKD 3B�4A
Creat 1.5 appears baseline for patient
-Follow BMP
#Hx urinary retention August 2024
Had Jones catheter placed with failed void trials
-Will have bladder scan protocol in place
-Continue Flomax 0.4 mg daily
#HTN�benign
BP 128/78
-Continue carvedilol 6.25 mg twice daily with hold parameters
-Continue losartan 100 mg daily, Norvasc 10 mg daily
#HLD
Continue Crestor 10 mg daily
#Anemia
Hgb 13.1
#CAD
-Continue aspirin 81 mg daily, Plavix, statin
#GERD
Continue Protonix 40 mg daily
#Chronic back pain/spinal stenosis
-Continue gabapentin 100 mg at bedtime
#Major depression/anxiety
-Continue Effexor 50 mg daily, mirtazapine 7.5 mg at bedtime, Aripiprazole 2 mg at bedtime
#Glaucoma
Continue Xalatan 1 drop both eyes daily
Other PMH:
Renal calculi with renal stents bilateral placed and removal
Internal hemorrhoids
Carotid stenosis status post carotid endarterectomy
Vitamin D deficiency, continue vitamin D3 1000 units daily
B12 deficiency continue 1000 mcg p.o. daily
DVT prophylaxis
Subcu Lovenox
DNR per pts daughter Darlene Gotltieb who is medical and financial POA
--- NOTE | 2024-11-04 17:18 | W.PN.UPDATE ---
Addendum entered and electronically signed by Rafael Fitch MD 11/04/24 18:14:
Patient occasionally has blood in the stool after wiping from hemorrhoids which is known.
Original Note:
Update Note
Progress Note Update
This is an addendum to the H&P written by Nicolle Espinoza on 11/04/2024. Patient seen and examined independently with NEEDLE LOOM SETTER.
89-year-old female past medical history of internal hemorrhoids, ambulatory dysfunction, CKD 3A, CAD, normocytic anemia, mild cognitive impairment, chronic dizziness/diplopia, left renal artery stenosis status post tenting 2011, hypertension,
diabetes, presenting for nausea and vomiting and dehydration. Symptoms for 4 days. Denies fevers or chills or abdominal pain. Decreased urine output. Occasional blood in the diarrhea.
Daughter and patient are deciding to seek placement in SNF because patient lives in a 4 story home that is unsafe.
Labs show CKD at baseline. CT abdomen pelvis shows no acute process in abdomen or pelvis.
Patient with viral gastroenteritis. Clear liquid diet. IV fluids. Advance diet as tolerated. PT recommended SNF. Seen by case management.
[2024-11-04 17:54] LABS: Urine Albumin Trace (Neg - Trace); Urine Bilirubin Negative (Negative); Urine Character Clear (Clear); Urine Color Yellow; Urine Glucose Negative (Negative); Urine Ketone Negative (Negative); Urine Leukocyte Negative (Negative); Urine Nitrite Positive (Negative); Urine Occult Blood Negative (Negative); Urine Specific Gravity 1.015 (<1.030); Urine Urobilinogen Negative (Neg - 1+)
[2024-11-04 18:14] LABS: Urine Bacteria Many (Negative); Urine Red Blood Cell 0-2 /HPF (0-2); Urine Squamous Cell 0-2 /LPF (Few)
--- NOTE | 2024-11-04 21:40 | PTCARENOTE ---
Pt admitted to 2134 from ED. Pt pulled over to bed. AAOX2, knows month but unable to state day, forgetful to details. Denies c/o pain or discomfort. VSS. Bed alarm activated. Call palacios within reach.
[2024-11-04] MEDS: NEURONTIN 100 MG PO (22:06)
[2024-11-04] MEDS: REMERON 7.5 MG PO (22:06)
[2024-11-04] MEDS: COREG 6.25 MG PO (22:06)
[2024-11-04] MEDS: XALATAN OPHTHALMIC SOLUTION 1 DROP BOTH EYES (22:14)
[2024-11-04] MEDS: ABILIFY 2 MG PO (22:14)
[2024-11-04] MEDS: HEPARIN 5000 UNITS SC (22:48)
[2024-11-05 06:00] VITALS: BMI 21.9
[2024-11-05] MEDS: NSS 1000 IV (06:08)
[2024-11-05 06:34] LABS: Hematocrit 34.4 % (37.0-47.0); Mean Corpuscular Hgb 31.3 pg (27.0-31.0); Mean Corpuscular Volume 97.7 fL (81.0-99.0); Mean Platelet Volume 9.6 fL (7.4-10.4); Platelet Count 174 10^3/uL (130-400); Red Blood Cell Count 3.52 10^6/uL (4.20-5.40); Red Cell Dist. Width 14.2 % (11.5-14.5)
[2024-11-05 07:00] VITALS: BP 124/64
[2024-11-05 07:08] LABS: ALT (SGPT) 16 U/L (0-35); AST (SGOT) 23 U/L (14-36); Alkaline Phosphatase 51 U/L (38-126); Blood Urea Nitrogen 31 mg/dl (7-17); Calcium 8.2 mg/dl (8.4-10.2); Carbon Dioxide 21 mmol/L (22-30); Chloride 109 mmol/L (98-107); Estimated Creatinine Clearance 26 ml/min; Glucose 87 mg/dl (70-99); Potassium 4.1 mmol/L (3.5-5.1); Sodium 140 mmol/L (135-145); Total Bilirubin 0.3 mg/dl (0.2-1.3); Total Protein 5.6 g/dl (6.3-8.2); eGFR 35.96
[2024-11-05] MEDS: COREG 6.25 MG PO ×2 (08:52→20:17)
[2024-11-05] MEDS: CRESTOR 10 MG PO (08:52)
[2024-11-05] MEDS: PROTONIX 40 MG PO (08:52)
[2024-11-05] MEDS: EFFEXOR 50 MG PO (08:52)
[2024-11-05] MEDS: FLOMAX 0.4 MG PO (08:52)
[2024-11-05] MEDS: FEOSOL 325 MG PO (08:53)
[2024-11-05] MEDS: LIDOCAINE 4% PATCH 1 PATCH TOPICAL (08:53)
[2024-11-05] MEDS: ASPIR LOW (ENTERIC COATED) 81 MG PO (08:53)
[2024-11-05] MEDS: HEPARIN 5000 UNITS SC ×2 (08:53→20:17)
[2024-11-05] MEDS: NORVASC 10 MG PO (08:53)
[2024-11-05] MEDS: COZAAR 100 MG PO (08:53)
[2024-11-05] MEDS: VITAMIN B-12 1000 MCG PO (08:53)
[2024-11-05 08:58] LABS: % Basophils 0.2 % (0-2); % Immature Granulocytes 0.8 % (0-0.5); % Lymphocytes 21.5 % (20.5-51.1); % Monocytes 12.4 % (1.7-9.3); % Neutrophils 65.1 % (42.2-75.2); Absolute Lymphocytes 1.1 10^3/uL (1.2-3.4); Absolute Monocytes 0.6 10^3/uL (0.1-0.6); Absolute Neutrophils 3.2 10^3/uL (1.4-6.5); Nucleated Red Blood Cells % 0 %
--- NOTE | 2024-11-05 10:48 | PTCARENOTE ---
Addendum entered by Nati Almanzar RN 11/05/24 19:49:
pt continuing to retain urine for this nurse despite numerous attempts to toilet. pt scanned for >300ml post scant void on the toilet. hat still in place within toilet for stool sample at this time. pt oob to chair with x1 assist. Son called this
evening and pt stated she did not want to talk to the son chris because they argue.
pt agreeable to speak with daughter and older son adrienne. passed along to night clerk nurse.
Original Note:
pt retaining >400ml this morning for this nurse as well as for overnight nurse. made aware. pt straight cathed for 450ml. added to worklist.
--- NOTE | 2024-11-05 11:30 | W.PN.HOSP.TC ---
Today's Communication/Plan
-
monitor vitals
see plan
zofran prn
dc further fluids
advance diet
PT/OT
straight cath prn for urinary retention
Assessment / Plan
Assessment / Plan
General: Comfortable, Conversant and Other (Oriented to name, place, 2023, president but not month or past history/medications)
HEENT: NormoCephalic, Anicteric
Respiratory: Clear; No Wheezes, Rales or Rhonchi
Cardiac: S1/S2 and Regular Rhythm; No Murmur
GI: Soft, Non Tender, Non Distended, Normal Bowel Sounds
Genito-urinary: No costovertebral tender
Musculoskeletal: No Edema
Neuro: Awake, Alert, Oriented (Oriented to name, place, 2023, president but not month or past history/medications), No Motor Deficits,
Psych: Calm
Acute viral gastroenteritis
N/V for few days; now improving
no more diarrhea
-IV Zofran
-IV NSS
-Consult PT/OT rec SNF
CT abdomen pelvis with IV contrast only:
No evidence of acute inflammatory process of the abdomen or pelvis.
Infrarenal abdominal aortic aneurysm measuring 3.4 cm in diameter mildly increased from CT on 12/05/2014 which was 3.1 cm.
Severe chronic compression fracture of [id number] decompression of the L4 level. Posterior fusion from L3 through L5. Mild lumbar levoscoliosis.
Chronic degenerative changes of the spine, bilateral sacroiliac joints, hips, and symphysis pubis
#Hx urinary retention August 2024
Had Trujillo catheter placed with failed void trials
-Will have bladder scan protocol in place; if fails again then will need trujillo
-Continue Flomax 0.4 mg daily
#Chronic mild cognitive dysfunction with Chronic dysarthria
#Acute self-care deficit due to cognitive impairment, multiple stairs at home, mentally disabled son at home
Case management spoke with patient's daughter who is medical and financial power of shorer who has spoken with [facility] looking for private pay SNF and eventual transition to long-term care there daughter was agreeable to self-pay
according to case management. Case management spoke with Kamila at [facility] who is reviewing clinical status and discussing financial arrangement
#CKD 3B�4A
Creat 1.5 appears baseline for patient
monitor
mild pyuria
does not appear to have UTI
monitor
#HTN�benign
-Continue carvedilol 6.25 mg twice daily with hold parameters
-Continue losartan 100 mg daily, Norvasc 10 mg daily
#HLD
Continue Crestor 10 mg daily
#Anemia
Likely anemia of chronic disease
Monitor
#CAD
aspirin, Plavix, statin
#GERD
Continue Protonix 40 mg daily
#Chronic back pain/spinal stenosis
-Continue gabapentin 100 mg at bedtime
Infrarenal abdominal aortic aneurysm, 3.4 cm
Continue to monitor
#Major depression/anxiety
-Continue Effexor 50 mg daily, mirtazapine 7.5 mg at bedtime, Aripiprazole 2 mg at bedtime
#Glaucoma
Continue Xalatan 1 drop both eyes daily
Other PMH:
Renal calculi with renal stents bilateral placed and removal
Internal hemorrhoids
Carotid stenosis status post carotid endarterectomy
Vitamin D deficiency, continue vitamin D3 1000 units daily
B12 deficiency continue 1000 mcg p.o. daily
DVT prophylaxis
Subcu Lovenox
DNR per pts daughter Darlene Gottlieb who is medical and financial POA
Anticipated Discharge: Within 24 hours
Subjective/Interval History
-
Date of Service: November 05, 2024
Denies nausea
Objective Data
-
Labs:
Laboratory Results
11/05/24
05:42
WBC 5.0
Hgb 11.0 L
Hct 34.4 L
Plt Count 174
Sodium 140
Potassium 4.1
Chloride 109 H
Carbon Dioxide 21 L
BUN 31 H
Creatinine 1.4 H
Glucose 87
Calcium 8.2 L
Total Bilirubin 0.3
AST 23
ALT 16
Alkaline Phosphatase 51
Vital Signs:
Vital Signs
Temp Pulse Resp BP Pulse Ox
98.2 F 76 16 124/64 96
11/05/24 07:00 11/05/24 08:52 11/05/24 07:00 11/05/24 08:52 11/05/24 11:18
I&O
11/04/24 11/05/24 11/06/24
06:59 06:59 06:59
Intake Total 960 / 960
Output Total 625 / 625 450 / 450
Balance 335 / 335 -450 / -450
[2024-11-05] MEDS: PLAVIX 75 MG PO (12:10)
[2024-11-05] MEDS: VITAMIN D3 (cholecalciferol) 25 MCG PO (12:10)
[2024-11-05 14:25] VITALS: BP 135/59; PULSE 60; O2SAT 95
[2024-11-05 15:05] VITALS: BP 131/55; PULSE 64; O2SAT 95
[2024-11-05 15:54] VITALS: BP 120/54
[2024-11-05 20:16] VITALS: BP 130/60
[2024-11-05] MEDS: ABILIFY 2 MG PO (21:10)
[2024-11-05] MEDS: REMERON 7.5 MG PO (21:10)
[2024-11-05] MEDS: NEURONTIN 100 MG PO (21:10)
[2024-11-05] MEDS: XALATAN OPHTHALMIC SOLUTION 1 DROP BOTH EYES (21:10)
[2024-11-05 23:13] VITALS: BP 107/48
[2024-11-06 06:00] VITALS: BMI 21.3
[2024-11-06 06:28] LABS: % Basophils 0.4 % (0-2); % Eosinophils 2.2 % (0-6); % Immature Granulocytes 0.8 % (0-0.5); % Lymphocytes 30.5 % (20.5-51.1); % Neutrophils 56.1 % (42.2-75.2); Absolute Eosinophils 0.1 10^3/uL (0-0.7); Absolute Lymphocytes 1.6 10^3/uL (1.2-3.4); Absolute Monocytes 0.5 10^3/uL (0.1-0.6); Absolute Neutrophils 2.9 10^3/uL (1.4-6.5); Hematocrit 34.2 % (37.0-47.0); Hemoglobin 10.8 g/dL (12.0-16.0); Mean Corp Hgb Conc. 31.6 g/dL (33.0-37.0); Mean Corpuscular Hgb 30.6 pg (27.0-31.0); Mean Corpuscular Volume 96.9 fL (81.0-99.0); Mean Platelet Volume 9.3 fL (7.4-10.4); Nucleated Red Blood Cells % 0 %; Platelet Count 188 10^3/uL (130-400); Red Blood Cell Count 3.53 10^6/uL (4.20-5.40); White Blood Cell Count 5.1 10^3/uL (4.8-10.8)
[2024-11-06 06:54] LABS: ALT (SGPT) 17 U/L (0-35); AST (SGOT) 23 U/L (14-36); Albumin 2.9 g/dl (3.5-5.0); Alkaline Phosphatase 56 U/L (38-126); Blood Urea Nitrogen 32 mg/dl (7-17); Calcium 8.6 mg/dl (8.4-10.2); Carbon Dioxide 23 mmol/L (22-30); Chloride 111 mmol/L (98-107); Estimated Creatinine Clearance 27 ml/min; Glucose 95 mg/dl (70-99); Potassium 4.5 mmol/L (3.5-5.1); Sodium 141 mmol/L (135-145); Total Bilirubin 0.2 mg/dl (0.2-1.3); Total Protein 5.5 g/dl (6.3-8.2); eGFR 39.31
[2024-11-06 07:25] VITALS: BP 111/51
[2024-11-06] MEDS: COZAAR 100 MG PO (09:56)
[2024-11-06] MEDS: ASPIR LOW (ENTERIC COATED) 81 MG PO (09:57)
[2024-11-06] MEDS: EFFEXOR 50 MG PO (09:57)
[2024-11-06] MEDS: CRESTOR 10 MG PO (09:57)
[2024-11-06] MEDS: PROTONIX 40 MG PO (09:57)
[2024-11-06] MEDS: VITAMIN B-12 1000 MCG PO (09:57)
[2024-11-06] MEDS: COREG 6.25 MG PO ×2 (09:59→21:11)
[2024-11-06] MEDS: FLOMAX 0.4 MG PO (09:59)
[2024-11-06] MEDS: FEOSOL 325 MG PO (09:59)
[2024-11-06] MEDS: NORVASC 10 MG PO (10:00)
[2024-11-06] MEDS: LIDOCAINE 4% PATCH 1 PATCH TOPICAL (10:01)
[2024-11-06] MEDS: HEPARIN 5000 UNITS SC ×2 (10:01→21:11)
--- NOTE | 2024-11-06 12:04 | W.PN.HOSP.TC ---
Today's Communication/Plan
-
Monitor vital signs see plan
Discharge today if has placement, outpatient case manager notified
Bladder scan as needed
Assessment / Plan
Assessment / Plan
General: Comfortable, Conversant and Other (Oriented to name, place, 2023, president but not month or past history/medications)
HEENT: NormoCephalic, Anicteric
Respiratory: Clear; No Wheezes, Rales or Rhonchi
Cardiac: S1/S2 and Regular Rhythm; No Murmur
GI: Soft, Non Tender, Non Distended, Normal Bowel Sounds
Genito-urinary: No costovertebral tender
Musculoskeletal: No Edema
Neuro: Awake, Alert, Oriented (Oriented to name, place, 2023, president but not month or past history/medications), No Motor Deficits,
Psych: Calm
Acute viral gastroenteritis
N/V for few days; now resolved
no more diarrhea
-IV Zofran prn if needed; has not required
-Consult PT/OT rec SNF, discussed with daughter and patient is unable to take care of herself at home.
CT abdomen pelvis with IV contrast only:
No evidence of acute inflammatory process of the abdomen or pelvis.
Infrarenal abdominal aortic aneurysm measuring 3.4 cm in diameter mildly increased from CT on 12/05/2014 which was 3.1 cm.
Severe chronic compression fracture of [id number] decompression of the L4 level. Posterior fusion from L3 through L5. Mild lumbar levoscoliosis.
Chronic degenerative changes of the spine, bilateral sacroiliac joints, hips, and symphysis pubis
#Hx urinary retention August 2024
Had Trujillo catheter placed with failed void trials in past
-Will have bladder scan protocol in place; if fails again then will need trujillo
-Continue Flomax 0.4 mg daily
Recommended daughter to follow-up with urology outpatient
#Chronic mild cognitive dysfunction with Chronic dysarthria
#Acute self-care deficit due to cognitive impairment, multiple stairs at home, mentally disabled son at home
Case management spoke with patient's daughter who is medical and financial power of weed thinner who has spoken with [facility] looking for private pay SNF and eventual transition to long-term care there daughter was agreeable to self-pay
according to case management. Case management spoke with Kamila at [facility] who is reviewing clinical status and discussing financial arrangement
#CKD 3B�4A
Creat 1.5 appears baseline for patient
monitor
mild pyuria,asymptomatic
does not appear to have UTI
monitor
#HTN�benign
-Continue carvedilol 6.25 mg twice daily with hold parameters
-Continue losartan 100 mg daily, Norvasc 10 mg daily
#HLD
Continue Crestor 10 mg daily
#Anemia
Likely anemia of chronic disease
Monitor
#CAD
aspirin, Plavix, statin
#GERD
Continue Protonix 40 mg daily
#Chronic back pain/spinal stenosis
-Continue gabapentin 100 mg at bedtime
Infrarenal abdominal aortic aneurysm, 3.4 cm
Continue to monitor
#Major depression/anxiety
-Continue Effexor 50 mg daily, mirtazapine 7.5 mg at bedtime, Aripiprazole 2 mg at bedtime
#Glaucoma
Continue Xalatan 1 drop both eyes daily
Other PMH:
Renal calculi with renal stents bilateral placed and removal
Internal hemorrhoids
Carotid stenosis status post carotid endarterectomy
Vitamin D deficiency, continue vitamin D3 1000 units daily
B12 deficiency continue 1000 mcg p.o. daily
DVT prophylaxis
Subcu Lovenox
DNR per pts daughter Darlene Gottlieb who is medical and financial POA
Anticipated Discharge: Today
Subjective/Interval History
-
Date of Service: November 06, 2024
denies pain
Objective Data
-
Labs:
Laboratory Results
11/06/24
06:01
WBC 5.1
Hgb 10.8 L
Hct 34.2 L
Plt Count 188
Sodium 141
Potassium 4.5
Chloride 111 H
Carbon Dioxide 23
BUN 32 H
Creatinine 1.3 H
Glucose 95
Calcium 8.6
Total Bilirubin 0.2
AST 23
ALT 17
Alkaline Phosphatase 56
Vital Signs:
Vital Signs
Temp Pulse Resp BP Pulse Ox
98.1 F 83 20 111/51 97
11/06/24 07:25 11/06/24 10:00 11/06/24 07:25 11/06/24 10:00 11/06/24 07:25
I&O
11/05/24 11/06/24 11/07/24
06:59 06:59 06:59
Intake Total 960 / 960 1260 / 1260
Output Total 625 / 625 1700 / 1700
Balance 335 / 335 -440 / -440
--- NOTE | 2024-11-06 12:34 | CM ---
Addendum entered by Liane Doyle 11/06/24 16:32:
11:00AM transport time tomorrow
notified Kamila and patient daughter
Addendum entered by Liane Doyle 11/06/24 15:19:
Spoke with Kamila at [facility] and will accept patient and has bed available tomorrow. tt Dr. Robb
Patient will be private pay - Spoke with daughter Darlene MONAE and agreeable.
Patient OBS - form in chart
transportation forms on chart.
PLAN: [facility] on Sat 11/07
Report #: [phone]
Fax #: [phone]
Original Note:
Referral was sent to [facility]
Called Kamila in admission as she was working with patient daughter Darlene regarding financial's.
Daughter was agreeable to private pay per previous note.
PLAN: SNF, pending acceptance/bed availability.
[2024-11-06] MEDS: PLAVIX 75 MG PO (12:52)
[2024-11-06] MEDS: VITAMIN D3 (cholecalciferol) 25 MCG PO (12:52)
[2024-11-06] MEDS: ABILIFY 2 MG PO (21:14)
[2024-11-06] MEDS: NEURONTIN 100 MG PO (21:14)
[2024-11-06] MEDS: REMERON 7.5 MG PO (21:14)
[2024-11-06] MEDS: XALATAN OPHTHALMIC SOLUTION 1 DROP BOTH EYES (21:15)
[2024-11-06 22:40] VITALS: BP 104/58
[2024-11-07 06:24] LABS: ALT (SGPT) 17 U/L (0-35); AST (SGOT) 23 U/L (14-36); Albumin 3.1 g/dl (3.5-5.0); Alkaline Phosphatase 50 U/L (38-126); Blood Urea Nitrogen 27 mg/dl (7-17); Calcium 8.9 mg/dl (8.4-10.2); Carbon Dioxide 21 mmol/L (22-30); Chloride 112 mmol/L (98-107); Estimated Creatinine Clearance 27 ml/min; Glucose 99 mg/dl (70-99); Potassium 4.3 mmol/L (3.5-5.1); Sodium 143 mmol/L (135-145); Total Bilirubin 0.3 mg/dl (0.2-1.3); Total Protein 5.9 g/dl (6.3-8.2); eGFR 39.31
[2024-11-07 07:50] VITALS: BP 148/72
[2024-11-07] MEDS: HEPARIN 5000 UNITS SC (08:53)
[2024-11-07] MEDS: LIDOCAINE 4% PATCH 1 PATCH TOPICAL (08:53)
[2024-11-07] MEDS: COZAAR 100 MG PO (08:54)
[2024-11-07] MEDS: EFFEXOR 50 MG PO (08:54)
[2024-11-07] MEDS: PROTONIX 40 MG PO (08:54)
[2024-11-07] MEDS: FLOMAX 0.4 MG PO (08:54)
[2024-11-07] MEDS: CRESTOR 10 MG PO (08:54)
[2024-11-07] MEDS: NORVASC 10 MG PO (08:55)
[2024-11-07] MEDS: ASPIR LOW (ENTERIC COATED) 81 MG PO (08:55)
[2024-11-07] MEDS: FEOSOL 325 MG PO (08:55)
[2024-11-07] MEDS: COREG 6.25 MG PO (08:55)
[2024-11-07] MEDS: VITAMIN B-12 1000 MCG PO (08:55)
--- NOTE | 2024-11-07 09:49 | W.PN.HOSP.TC ---
Addendum entered and electronically signed by Bill Robb MD 11/07/24 10:00:
Discussed with daughter over the phone
Original Note:
Today's Communication/Plan
-
monitor vitals
see plan
dc today to SNF
start cipro
maintain trujillo
urology f/u outpatient
time of discharge 38 minutes
Assessment / Plan
Assessment / Plan
General: Comfortable, Conversant and Other (Oriented to name, place, 2023, president but not month or past history/medications)
HEENT: NormoCephalic, Anicteric
Respiratory: Clear; No Wheezes, Rales or Rhonchi
Cardiac: S1/S2 and Regular Rhythm; No Murmur
GI: Soft, Non Tender, Non Distended, Normal Bowel Sounds
Genito-urinary: No costovertebral tender
Musculoskeletal: No Edema
Neuro: Awake, Alert, Oriented (Oriented to name, place, 2023, president but not month or past history/medications), No Motor Deficits,
Psych: Calm
Acute viral gastroenteritis
N/V for few days; now resolved
no more diarrhea
-IV Zofran prn if needed; has not required
-Consult PT/OT rec SNF, discussed with daughter and patient is unable to take care of herself at home.
CT abdomen pelvis with IV contrast only:
No evidence of acute inflammatory process of the abdomen or pelvis.
Infrarenal abdominal aortic aneurysm measuring 3.4 cm in diameter mildly increased from CT on 12/05/2014 which was 3.1 cm.
Severe chronic compression fracture of [id number] decompression of the L4 level. Posterior fusion from L3 through L5. Mild lumbar levoscoliosis.
Chronic degenerative changes of the spine, bilateral sacroiliac joints, hips, and symphysis pubis
#Hx urinary retention August 2024
Had Trujillo catheter placed with failed void trials in past
-failed voiding multiple times; now with trujillo
-Continue Flomax 0.4 mg; make it BID
Recommended daughter to follow-up with urology outpatient
#Chronic mild cognitive dysfunction with Chronic dysarthria
#Acute self-care deficit due to cognitive impairment, multiple stairs at home, mentally disabled son at home
Case management spoke with patient's daughter who is medical and financial power of patent prosecution attorney who has spoken with [facility] looking for private pay SNF and eventual transition to long-term care there daughter was agreeable to self-pay
according to case management. Case management spoke with Kamila at [facility] who is reviewing clinical status and discussing financial arrangement
#CKD 3B�4A
Creat 1.3 appears baseline for patient
monitor
mild pyuria,given urinary retention will treat for UTI
ucx with klebsiella. start cipro
monitor
#HTN�benign
-Continue carvedilol 6.25 mg twice daily with hold parameters
-Continue losartan 100 mg daily, Norvasc 10 mg daily
#HLD
Continue Crestor 10 mg daily
#Anemia
Likely anemia of chronic disease
Monitor
#CAD
aspirin, Plavix, statin
#GERD
Continue Protonix 40 mg daily
#Chronic back pain/spinal stenosis
-Continue gabapentin 100 mg at bedtime
Infrarenal abdominal aortic aneurysm, 3.4 cm
Continue to monitor
#Major depression/anxiety
-Continue Effexor 50 mg daily, mirtazapine 7.5 mg at bedtime, Aripiprazole 2 mg at bedtime
#Glaucoma
Continue Xalatan 1 drop both eyes daily
Other PMH:
Renal calculi with renal stents bilateral placed and removal
Internal hemorrhoids
Carotid stenosis status post carotid endarterectomy
Vitamin D deficiency, continue vitamin D3 1000 units daily
B12 deficiency continue 1000 mcg p.o. daily
DVT prophylaxis
Subcu Lovenox
DNR per pts daughter Darlene Gottlieb who is medical and financial POA
Anticipated Discharge: Today
Subjective/Interval History
-
Date of Service: November 07, 2024
denies pain
Objective Data
-
Labs:
Laboratory Results
11/07/24
05:17
Sodium 143
Potassium 4.3
Chloride 112 H
Carbon Dioxide 21 L
BUN 27 H
Creatinine 1.3 H
Glucose 99
Calcium 8.9
Total Bilirubin 0.3
AST 23
ALT 17
Alkaline Phosphatase 50
Vital Signs:
Vital Signs
Temp Pulse Resp BP Pulse Ox
98.1 F 72 18 148/72 94
11/07/24 07:50 11/07/24 08:55 11/07/24 07:50 11/07/24 08:55 11/07/24 07:50
I&O
11/06/24 11/07/24 11/08/24
06:59 06:59 06:59
Intake Total 1260 / 1260 480 / 480
Output Total 1700 / 1700 2200 / 2200
Balance -440 / -440 -1720 / -1720
--- NOTE | 2024-11-07 09:55 | W.DCSUMMARY ---
Discharge Summary
Discharge Data
Date of Admission: 11/04/24
Date of Discharge: 11/07/24
-
Pending Results: No
Hospital Course
89-year-old female with past medical history of hypertension, hyperlipidemia, anemia, CAD, GERD, chronic back pain, spinal stenosis, infrarenal abdominal aortic aneurysm, depression/anxiety, glaucoma, internal hemorrhoids, carotid stenosis status
post enterectomy, urinary retention came to the hospital with ambulatory dysfunction and acute viral gastroenteritis. Patient gastroenteritis continue to improve over time. She was also appeared to be dehydrated on admission which over time
continue to improve. For her urinary retention she required Trujillo catheter. On discharge she was instructed to follow-up with urology outpatient. Her Flomax was also increased to 0.4 mg twice daily. Her urine culture was also positive for
Klebsiella for which she was treated with antibiotics. Patient was eval by physical therapy who recommended SNF. Once her symptoms continue to improve, she was then discharged to rehab with instructions to follow-up with all her physicians
outpatient.
Discharge Plan
-
Patient Disposition: Intermediate/SNF
Discharge Diagnosis/Procedures: Acute viral gastroenteritis
Acute urinary retention with trujillo catheter
UTI
Diet: As tolerated
Activity: As tolerated
Driving Restrictions: As prior to admission
Bathing Restrictions: None
Activity Restrictions/Additional Instructions:
continue antibiotics for 5 days
Referrals:
Chacorta Solis CRNP [Family Provider] - in less than 1 week
Colt Hickman MD [Active] -
Prescriptions:
New
ciprofloxacin HCl 500 mg Tablet
500 mg PO DAILY 5 Days Qty: 5 0RF
Continued
cholecalciferol (vitamin D3) 1,000 UNITS tablet
1,000 units PO DAILY@1200
pantoprazole 40 MG tablet,delayed release (DR/EC)
40 mg PO DAILY
carvedilol 6.25 MG tablet
6.25 mg PO BID Qty: 60 0RF
clopidogrel 75 MG tablet
75 mg PO DAILY@1200 Qty: 0 0RF
Rx Instructions:
Resume only after discussion with Primary griddle attendant
amlodipine [Norvasc] 10 MG tablet
10 mg PO DAILY Qty: 30 0RF
rosuvastatin 10 mg Tablet
10 mg PO DAILY
aripiprazole 2 mg Tablet
2 mg PO HS Qty: 30 0RF
lidocaine 4 % Adhesive Patch,Medicated
1 patch topical DAILY Qty: 10 0RF
Rx Instructions:
Remove patch daily at 8 pm
gabapentin 100 mg Capsule
100 mg PO HS Qty: 20 0RF
latanoprost [Xalatan] 0.005 % Drops
1 drp BOTH EYES DAILY
aspirin 81 mg Tablet,Delayed Release (Dr/Ec)
81 mg PO DAILY
polyethylene glycol 3350 [HealthyLax] 17 gram powder in packet
17 g PO DAILYPRN PRN (Reason: constipation)
cyanocobalamin (vitamin B-12) 1,000 mcg Tablet
1,000 mcg PO DAILY
ferrous sulfate 325 mg (65 mg iron) Tablet
325 mg PO DAILY
venlafaxine 50 mg Tablet
50 mg PO DAILY
losartan 100 mg Tablet
100 mg PO DAILY
mirtazapine 7.5 mg Tablet
7.5 mg PO HS
acetaminophen [Tylenol Extra Strength] 500 mg tablet
1,000 mg PO TID
Changed
tamsulosin 0.4 mg Capsule
0.4 mg PO BID Qty: 30 0RF
Discharge Orders:
Discharge Patient (As Directed); Ordered 11/07/24
Ordered By: Bill Robb
Discharge Date and Time
Discharge Date/Time: 11/07/24 11:15
Print Language: SINHALA
[2024-11-07] MEDS: CIPRO 500 MG PO (10:35)
--- NOTE | 2024-11-07 10:38 | CM ---
Pt for discharge today to [facility]
Family and Kamila aware - transport at 11AM
Plan - transfer to [facility]
Report #: [phone]
Fax #: [phone]
[2024-11-07 11:09] VITALS: BP 122/63
== END 2024-11-07 11:15 ==
LOC: 2 NORTH 17:46
PROVIDERS: Clinical Nurse Specialist Family Health; Physician Assistant; ADMITTING PHYSICIAN Hospitalist; ATTENDING PHYSICIAN Internal Medicine; EMERGENCY PHYSICIAN Student in an Organized Health Care Education/Training Program; FAMILY PHYSICIAN Nurse Practitioner Adult Health
DX: A08.4 Viral intestinal infection, unspecified (principal); R11.2 Nausea with vomiting, unspecified; R19.7 Diarrhea, unspecified; I25.10 Atherosclerotic heart disease of native coronary artery without angina pectoris; E11.22 Type 2 diabetes mellitus with diabetic chronic kidney disease; N18.32 Chronic kidney disease, stage 3b; I10 Essential (primary) hypertension; R53.1 Weakness; R53.83 Other fatigue; D64.9 Anemia, unspecified; E78.00 Pure hypercholesterolemia, unspecified; K64.8 Other hemorrhoids; F41.9 Anxiety disorder, unspecified; F32.9 Major depressive disorder, single episode, unspecified; M48.56XA Collapsed vertebra, not elsewhere classified, lumbar region, initial encounter for fracture; R94.31 Abnormal electrocardiogram [ECG] [EKG]; G31.84 Mild cognitive impairment of uncertain or unknown etiology; I71.43 Infrarenal abdominal aortic aneurysm, without rupture; N39.0 Urinary tract infection, site not specified; B96.1 Klebsiella pneumoniae [K. pneumoniae] as the cause of diseases classified elsewhere; R33.9 Retention of urine, unspecified; M41.56 Other secondary scoliosis, lumbar region; H40.9 Unspecified glaucoma; G89.29 Other chronic pain; K21.9 Gastro-esophageal reflux disease without esophagitis; Z75.1 Person awaiting admission to adequate facility elsewhere; Z87.891 Personal history of nicotine dependence; Z90.49 Acquired absence of other specified parts of digestive tract; Z66 Do not resuscitate; Z87.442 Personal history of urinary calculi; Z88.8 Allergy status to other drugs, medicaments and biological substances; Z91.041 Radiographic dye allergy status; Z91.013 Allergy to seafood; Z79.02 Long term (current) use of antithrombotics/antiplatelets; Z79.82 Long term (current) use of aspirin; Z87.19 Personal history of other diseases of the digestive system
CPT/HCPCS: 74177; 80048; 80053; 81003; 81015; 83690; 83735; 85025; 87077; 87086; 87186; 93005; 96361; 96374; 96375; 97116; 97166; 99285; G0378; Q9967

== ENCOUNTER → 2024-11-10 11:15 | Outpatient (REF) | payer OTHER, MEDICARE, SELFPAY ==
[2024-11-10 12:03] LABS: Hematocrit 33.7 % (37.0-47.0); Hemoglobin 10.7 g/dL (12.0-16.0); Mean Corp Hgb Conc. 31.8 g/dL (33.0-37.0); Mean Corpuscular Hgb 30.3 pg (27.0-31.0); Mean Corpuscular Volume 95.5 fL (81.0-99.0); Mean Platelet Volume 9.7 fL (7.4-10.4); Platelet Count 230 10^3/uL (130-400); Red Blood Cell Count 3.53 10^6/uL (4.20-5.40); Red Cell Dist. Width 14.1 % (11.5-14.5); White Blood Cell Count 7.3 10^3/uL (4.8-10.8)
[2024-11-10 12:04] LABS: ALT (SGPT) 19 U/L (0-35); AST (SGOT) 25 U/L (14-36); Albumin 2.8 g/dl (3.5-5.0); Alkaline Phosphatase 57 U/L (38-126); Blood Urea Nitrogen 34 mg/dl (7-17); Calcium 8.7 mg/dl (8.4-10.2); Carbon Dioxide 24 mmol/L (22-30); Chloride 110 mmol/L (98-107); Glucose 98 mg/dl (70-99); Magnesium 1.9 mg/dl (1.6-2.3); Potassium 4.8 mmol/L (3.5-5.1); Sodium 140 mmol/L (135-145); Total Bilirubin < 0.1 mg/dl (0.2-1.3); Total Protein 5.3 g/dl (6.3-8.2); eGFR 35.96
== END ==
LOC: OLABWHC 11:15
PROVIDERS: ATTENDING PHYSICIAN Family Medicine
DX: E87.5 Hyperkalemia (principal); D64.9 Anemia, unspecified
CPT/HCPCS: 36415; 80053; 83735; 85027

== ENCOUNTER 2024-12-10 10:38 | Inpatient (IN) | payer MEDICARE, OTHER, SELFPAY ==
[2024-12-07 10:02] VITALS: BP 138/80
[2024-12-07 10:28] LABS: % Basophils 0.8 % (0-2); % Eosinophils 4.1 % (0-6); % Immature Granulocytes 0.3 % (0-0.5); % Lymphocytes 15.1 % (20.5-51.1); % Monocytes 7.5 % (1.7-9.3); % Neutrophils 72.2 % (42.2-75.2); Absolute Basophils 0.1 10^3/uL (0-0.2); Absolute Eosinophils 0.4 10^3/uL (0-0.7); Absolute Lymphocytes 1.3 10^3/uL (1.2-3.4); Absolute Monocytes 0.6 10^3/uL (0.1-0.6); Absolute Neutrophils 6.2 10^3/uL (1.4-6.5); Hematocrit 39.2 % (37.0-47.0); Hemoglobin 12.9 g/dL (12.0-16.0); Mean Corp Hgb Conc. 32.9 g/dL (33.0-37.0); Mean Corpuscular Hgb 31.2 pg (27.0-31.0); Mean Corpuscular Volume 94.9 fL (81.0-99.0); Mean Platelet Volume 9.2 fL (7.4-10.4); Nucleated Red Blood Cells % 0 %; Platelet Count 193 10^3/uL (130-400); Red Blood Cell Count 4.13 10^6/uL (4.20-5.40); Red Cell Dist. Width 14.2 % (11.5-14.5); White Blood Cell Count 8.6 10^3/uL (4.8-10.8)
[2024-12-07 10:35] LABS: ALT (SGPT) 12 U/L (0-35); AST (SGOT) 20 U/L (14-36); Alkaline Phosphatase 74 U/L (38-126); Blood Urea Nitrogen 24 mg/dl (7-17); Calcium 9.5 mg/dl (8.4-10.2); Carbon Dioxide 24 mmol/L (22-30); Chloride 104 mmol/L (98-107); Glucose 144 mg/dl (70-99); Potassium 5.2 mmol/L (3.5-5.1); Sodium 138 mmol/L (135-145); Total Bilirubin 0.4 mg/dl (0.2-1.3); Total Protein 6.9 g/dl (6.3-8.2); eGFR 30.64
[2024-12-07 11:37] VITALS: BP 178/91
--- NOTE | 2024-12-07 11:44 | ED.GENMED ---
History of Present Illness
General
Chief Complaint: Back Pain
Source: patient
Exam Limitations: none
Time Seen by Provider: 12/07/24 11:31
Nursing documentation reviewed up to this point in time: agreed with
History of Present Illness
History of Present Illness:
89 y/o F
h/o UTI, CKD, HTN, HLD, CAD, DM
here with pain across her lower back and wraps around her abdomen for a few days
she has some urinary frequency but is not incontinent
she had UTI and some incontinence last month
ended up getting abx and a trujillo catheter; went to [facility] rehab for a ew weeks and dc 11/21
her trujillo was pulled 11/19
pt has been voiding but she sometimes feels the urge mroe than suual
her bakc pain seem diferent than her usual pain lower back but it is worse with movement
she gallegos s tno had fever, chills, nauea, vomiting, hematuria, diarrhea, numbness in legs;
her daughter called, who is POA
says that pt lives [facility] [place] with her son and the son has mentla health issues
lore think shse needs to be placed in assisted living because it is too stressful for her to be home; she said that after the last admission at [facility], the patient seemed willing to go but kemartomnirmalbella has been unable to get anywhere with placing her
she is asking for me to address this
pt herself doesn'tknown if she wants to go; she wants to ilve at home
Past History
Past History
ED Past Medical History: CAD, HTN, Hypercholesterolemia, NIDDM and Other (Anemia)
ED Past Surgical History: Cholecystectomy, Urological (Kidney stents X3 on R and one in the L,) and Other (tubal, Carotid endarterectomy)
Patient has exhibited threatening behavior?: No
Social History
Tobacco: Former smoker
Alcohol: Occasional
Drug: None
Personal:
Living: with family
Employment: Retired
Family History
Family History: Other (Noncontributory)
Review of Systems
Review of Systems
Allergies reviewed?: Yes
All Other Systems: Not applicable
Phy Exam
Physical Exam
Physical Exam:
GENERAL: Alert , in no apparent distress, looks comforrable
EYE: pupils equal and reactive
NECK: Supple
ENT: b/l TM s clear, pharynx erythematous but no tonsillar hypertrophy or exudates
CARDIAC: Regular rate and rhythm, no edema
LUNGS: Clear breath sounds bilaterally, no acute respiratory distress, no wheezes/rales/rhonchi, occ cough
ABDOMEN: Soft, without focal tenderness, no r/g, no cvat, normal bowel sounds
NEUROLOGICAL: Alert and oriented, no focal neuro deficits
SKIN: Warm and dry, skin intact.
back: nontender ful rom
normal inspection
normal leg strength b/l
can move her legs normally
MUSCULOSKELETAL: No edema, well perfused.
PSYCH: Normal and appropriate interaction.
Course
Orders/Labs/Results
Orders:
Orders
12/07/24 10:12
CBC/With Diff [Complete Blood Count/With Diff] Urgent
Comprehensive Metabolic Panel Urgent
12/07/24 11:44
Case Management Consult ONCE
Case Management Consult: Discharge Planning
12/07/24 11:45
Bladder Scan- Treatment ONCE
12/07/24 11:47
CT Abd/pel Without Iv Or Oral Urgent
Comment:
Reason For Exam: back pain, urinary issues
12/07/24 11:49
Acetaminophen [Tylenol] 650 mg PO NOW STA
12/07/24 13:11
Physical Therapy Consult [Pt Eval And Treat] Urgent
Activity Level: Ambulate
12/07/24 13:45
Urinalysis Reflex To Culture Urgent
Date Specimen was Collected: 12/07/24
Time Specimen was Collected: 10:05
12/07/24 14:54
Trujillo Placement- Treatment ONCE
Reason for insertion: Acute Retention
Abnormal Lab Results
12/07/24
10:12
RBC 4.13 L 10^6/uL
(4.20-5.40)
MCH 31.2 H pg
(27.0-31.0)
MCHC 32.9 L g/dL
(33.0-37.0)
Lymphocytes % 15.1 L %
(20.5-51.1)
Potassium 5.2 H mmol/L
(3.5-5.1)
BUN 24 H mg/dl
(7-17)
Creatinine 1.6 H mg/dL
(0.6-1.0)
Glucose 144 H mg/dl
(70-99)
12/07/24 10:12
12/07/24 10:12
Vital Signs
Initial and Last Documented VS:
Initial Vital Signs
Temp Pulse Resp Pulse Ox
36.3 C 71 18 95
12/07/24 10:01 12/07/24 10:01 12/07/24 10:01 12/07/24 10:01
Last Documented Vital Signs
Temp Pulse Resp BP Pulse Ox
36.3 C 63 18 178/91 96
12/07/24 10:01 12/07/24 11:37 12/07/24 11:37 12/07/24 11:37 12/07/24 11:37
MDM/Problems Addressed
Differential Diagnosis Includes:
msk back pain, kidney stone, uti, kidney infection, aaa
MDM/Problems Addressed:
89 y/o F with chronci back pain, from home
lives with son who according to krishan on the phone, who is POA, the son is not capable of caring for her
pt with atrauamtic back pain wrapping around her abdomen for a few days
it is reprobudced with movement
she is not in pain at rest
no radiation of pain down legs
no fever/chills
had back pain previusly durin admission 1 mo ago and was sent to rehab; at that time she had multiple isues including UTI an durinary retention requiring trujillo
she went to [facility] where she stayed for 2 weeks, they padi out of pocket for and daughter really wants her to stay there permanently in assisted living
Patient is not really sure she wants to be in assisted living, she likes her house but she is realizing that it is hard for her to get around. Her son is not really able to care for her.
Patient d admits she has been having some urinary frequency but is not having any dysuria.
She is not having any numbness or weakness in her legs.
Suspect the patient does have a UTI contributing to her retention. We initially had her go to the bathroom but she was unable to give a sample.
pt's UA ws neg
she has trujillo
seen by PT
she could bemefit from rehab
daughter is very much in agreement
doubt her AAA s causing pain, it is a little larger than previous but her daughter who is POA did not seem interested in pursuing vascular f/u though we only spoke briefly abou tit
*Critical Care Note
Total Time (30-74mins, 75-104mins- exclusive of procedures): Not Applicable
ED Attending Note
-
Portions of this chart may have been created with voice recognition software.� Occasional wrong word or��sound alike� substitutions may have occurred due to the inherent limitations of voice recognition software.
Discharge Plan
Departure
Patient Disposition: Admit
Date of Disposition: 12/07/24
Time of Disposition: 14:34
Admit to: Med/Surg
Presentation/result/management discussed w/ accepting MD/DO: Hospitalist
Condition: Fair
Covid-19: Not Applicable
Discharge Problem:
Urinary retention, Back pain, Weakness
Prescriptions:
No Action
cholecalciferol (vitamin D3) 1,000 UNITS tablet
1,000 units PO DAILY@1200
pantoprazole 40 MG tablet,delayed release (DR/EC)
40 mg PO DAILY
carvedilol 6.25 MG tablet
6.25 mg PO BID Qty: 60 0RF
clopidogrel 75 MG tablet
75 mg PO DAILY@1200 Qty: 0 0RF
Rx Instructions:
Resume only after discussion with Primary precision honing machine operator
amlodipine [Norvasc] 10 MG tablet
10 mg PO DAILY Qty: 30 0RF
rosuvastatin 10 mg Tablet
10 mg PO DAILY
aripiprazole 2 mg Tablet
2 mg PO HS Qty: 30 0RF
lidocaine 4 % Adhesive Patch,Medicated
1 patch topical DAILY Qty: 10 0RF
Rx Instructions:
Remove patch daily at 8 pm
gabapentin 100 mg Capsule
100 mg PO HS Qty: 20 0RF
latanoprost [Xalatan] 0.005 % Drops
1 drp BOTH EYES DAILY
aspirin 81 mg Tablet,Delayed Release (Dr/Ec)
81 mg PO DAILY
polyethylene glycol 3350 [HealthyLax] 17 gram powder in packet
17 g PO DAILYPRN PRN (Reason: constipation)
cyanocobalamin (vitamin B-12) 1,000 mcg Tablet
1,000 mcg PO DAILY
ferrous sulfate 325 mg (65 mg iron) Tablet
325 mg PO DAILY
venlafaxine 50 mg Tablet
50 mg PO DAILY
losartan 100 mg Tablet
100 mg PO DAILY
mirtazapine 7.5 mg Tablet
7.5 mg PO HS
acetaminophen [Tylenol Extra Strength] 500 mg tablet
1,000 mg PO TID
ciprofloxacin HCl 500 mg Tablet
500 mg PO DAILY 5 Days Qty: 5 0RF
tamsulosin 0.4 mg Capsule
0.4 mg PO BID Qty: 30 0RF
Referrals:
Chacorta Solis CRNP [Family Provider] -
Interventions
Interventions:
*Risk Screen - Suicide Last Done: 12/07/24 11:55
*General Assessment Last Done: 12/07/24 11:55
*Neglect/Abuse Screening Last Done: 12/07/24 11:55
ED- Fall Risk Assessment Last Done: 12/07/24 11:42
*ED COVID-19 Vaccine History Last Done: 12/07/24 11:55
ED-Musculoskeletal Assessment Last Done: 12/07/24 11:41
Discharge Date and Time
Print Language: BELARUSIAN
[2024-12-07] MEDS: TYLENOL 650 MG PO (11:53)
--- NOTE | 2024-12-07 13:02 | CM ---
Addendum entered by Yamilet Latif RN 12/07/24 15:26:
[facility] does not have a bed available at this time.
Addendum entered by Yamilet Latif RN 12/07/24 15:18:
[facility] is reviewing clinical and will update when they can accept. Patient's daughter is going to speak with [facility] business office to discuss private pay arrangement again. CM will remain available as needed.
Addendum entered by Yamilet Latif RN 12/07/24 14:41:
Plan for SNF placement. [facility] no beds this week.
Original Note:
CM spoke with patient's daughter. Patient lives with disabled son. Patient's daughter stated that patient was recently discharged from [facility]. Daughter stated that patient has been home with [facility]. Daughter believes that patient is not eating or
drinking properly. Daughter wants patient placed.
Daughter stated that she would prefer [facility]; No beds available, [facility] (no beds available), [facility] or [facility]. CM is requesting PT evaluation.
[2024-12-07 14:01] LABS: Urine Albumin Negative (Neg - Trace); Urine Bilirubin Negative (Negative); Urine Character Clear (Clear); Urine Color Yellow; Urine Glucose Negative (Negative); Urine Ketone Negative (Negative); Urine Leukocyte Negative (Negative); Urine Nitrite Negative (Negative); Urine Occult Blood Negative (Negative); Urine Specific Gravity 1.005 (<1.030); Urine Urobilinogen Negative (Neg - 1+)
--- NOTE | 2024-12-07 14:59 | HPS.HSE ---
Family Physician
-
Family Physician: Chacorta Solis
Chief Complaint
-
Back Pain
History of Present Illness
Patient is an 89 y/o female past medical history of CAD, HTN, CKD, Spinal Stenosis who presents with back pain. Patient was admitted last month with urinary retention and urinary tract infection. She was discharged to [place] for continued physical
therapy and returned home on November 21. Patient notes her Jones catheter was removed prior to discharge from [place]. While in the emergency department patient was found to have recurrent urinary retention and Jones catheter was replaced.
Patient reports back pain is chronic but has been worse over the past few days. She denies any fevers, sweats or chills.
Medical History
Past Medical History
Past Medical History: Reports Other
Additional Past Medical History:
Coronary Artery Disease
Infrarenal Abdominal Aortic Aneurysm
Essential Hypertension
Hyperlipidemia
CKD Stage IIIB
Spinal Stenosis
L4 Compression Fracture
Anxiety/Depression
Urinary Retention
Past Surgical History: Reports Other
Additional Past Surgical History:
Cholecystectomy
Carotid Endarterectomy
T&A
Ureteral Stent
Social History
Tobacco: Non-smoker
Alcohol: None
Drug: None
Personal: Single
Living: With Family
Family History
Family History: Not pertinent
Allergies / Home Medications
Allergies reflects when Allergies were last updated in [employer].
Home Medications with original date entered in [employer]
Allergy/Medication List:
Allergies
Allergy/AdvReac Type Severity Reaction Status Date / Time
cefuroxime axetil Allergy Intermediate Rash Verified 11/04/24 09:26
[From Ceftin]
codeine Allergy Hives Verified 11/04/24 09:26
Iodinated Contrast Media Allergy Hives Verified 11/04/24 09:26
[IV Dye, Iodine Containing
Contrast ]
iodine Allergy Hives Verified 11/04/24 09:26
shellfish derived Allergy Unknown Verified 11/04/24 09:26
spironolactone Allergy Itching Verified 11/04/24 09:26
[From Aldactone]
Home Medications
pantoprazole 40 mg tablet,delayed release 40 mg PO DAILY Gastrointestinal issue 05/03/20
amlodipine 10 mg tablet (Norvasc) 10 mg PO DAILY #30 tabs 05/07/20
carvedilol 6.25 mg tablet 6.25 mg PO BID #60 tabs 05/07/20
rosuvastatin 10 mg tablet 10 mg PO DAILY High Cholesterol 06/12/24
aripiprazole 2 mg tablet 2 mg PO HS #30 tabs 06/17/24
gabapentin 100 mg capsule 100 mg PO HS #20 caps 06/17/24
aspirin 81 mg tablet,delayed release 81 mg PO DAILY Blood Clot Prevention/Tx 08/22/24
latanoprost 0.005 % eye drops (Xalatan) 1 drp BOTH EYES DAILY Eye Condition 08/22/24
polyethylene glycol 3350 17 gram oral powder packet (HealthyLax) 17 g PO DAILYPRN PRN constipation 08/22/24
cyanocobalamin (vitamin B-12) 1,000 mcg tablet 1,000 mcg PO DAILY Supplement 11/04/24
ferrous sulfate 325 mg (65 mg iron) tablet 325 mg PO DAILY Supplement 11/04/24
losartan 100 mg tablet 100 mg PO DAILY Blood Pressure 11/04/24
mirtazapine 7.5 mg tablet 7.5 mg PO HS 11/04/24
venlafaxine 50 mg tablet 50 mg PO DAILY Mental Health/Anxiety 11/04/24
acetaminophen 500 mg tablet (Tylenol Extra Strength) 1,000 mg PO BID Pain 11/05/24
Bifidobacterium infantis 4 mg capsule (Align (B.infantis)) 4 mg PO HS 12/07/24
clopidogrel 75 mg tablet 75 mg PO NOON Blood clot prevention/tx 12/07/24
lidocaine 4 % topical patch 1 patch topical DAILYPRN PRN mild pain 12/07/24
tamsulosin 0.4 mg capsule 0.4 mg PO HS 12/07/24
Review of Systems
-
A 12 point ROS was completed and negative except as noted: Yes
Constitutional: Denies Fever or Chills
Respiratory: Denies Cough or Trouble Breathing
Cardiac: Denies Chest Pain or Palpitations
Abdomen/GI: Denies Abdominal Pain, Nausea, Vomiting, Diarrhea or Constipated
: Reports See HPI
Physical Exam
Vital Signs
Vital Signs
Temp Pulse Resp BP Pulse Ox
97.4 F 63 18 178/91 96
12/07/24 10:01 12/07/24 11:37 12/07/24 11:37 12/07/24 11:37 12/07/24 11:37
Physical Exam
General: Comfortable and Conversant
HEENT: Anicteric and Moist mucous membranes
Respiratory: Clear and Non Labored Respirations
Cardiac: S1/S2 and Regular Rhythm
GI: Soft and Non Tender
Genito-urinary: Clear Urine and Jones
Musculoskeletal: No Clubbing and No Cyanosis
Skin: Warm and Dry
Neuro: Awake, Alert, Oriented and Nonfocal/grossly intact
Psych: Calm
Laboratory Results
-
12/07/24 10:12
12/07/24 10:12
Laboratory Results
Total Bilirubin 0.4 mg/dl (0.2-1.3) 12/07/24 10:12
AST 20 U/L (14-36) 12/07/24 10:12
ALT 12 U/L (0-35) 12/07/24 10:12
Alkaline Phosphatase 74 U/L (38-126) 12/07/24 10:12
Data Reviewed
-
Lab Data: Labs Reviewed by me
Old Records: Reviewed
Impression/Plan
-
Mild Hyperkalemia and Acute Renal Insufficiency on CKD IIIB, likely related to urinary retention
-Jones placed in ED
-Hold losartan
-Give small amount of IVFs
-Recheck labs in AM
Recurrent Urinary Retention
-No evidence of urinary tract infection
-Continue Jones
-Increase Flomax BID
-Recommend follow-up with Urology as outpatient
Infrarenal Abdominal Aortic Aneurysm
-Routine outpatient monitoring
Coronary Artery Disease
-Continue aspirin and Plavix
Essential Hypertension
-Continue amlodipine, carvedilol
-Hold losartan
Hyperlipidemia
-Continue rosuvastatin
Chronic Back Pain secondary to Spinal Stenosis/L4 Compression Fracture
-Add Lidocaine Patch
-Continue gabapentin
Anxiety/Depression
-Continue Abilify, Effexor and Remeron
DVT proph: SCDs
Code Status: DNR
--- NOTE | 2024-12-07 15:35 | W.PN.UPDATE ---
Update Note
Progress Note Update
This note serves as an addendum to the H&P by clinical document improvement educator GENE Estefany DEAN
HPI
89F HX chronic back pain, spinal stenosis, infrarenal abdominal aortic aneurysm,urinary retention, carotid stenosis status post enterectomy, CKD, hypertension, hyperlipidemia, anemia, CAD seen at ER;
- Recent UTI s/p ABx & Trujillo catheter, went to for a few weeks the DC'd on 11/21
- Trujillo was pulled on 11/19; has been voiding but she sometimes feels the urge more than usual
- bladder scan at ER , drained 350 cc thus Trujillo placed; NEG UA
- reports back pain seem deferent than her usual pain lower back but it is worse with movement
PHX; see above
Vital Signs
Temp Pulse Resp BP Pulse Ox
97.4 F 63 18 178/91 96
12/07/24 10:01 12/07/24 11:37 12/07/24 11:37 12/07/24 11:37 12/07/24 11:37
PE
Gen: no apparent distress,
HEENT: anicteric
Neck: supple
Lungs: CTA
Cor: RRR S1 S2
Abdomen: Soft, without focal tenderness
REVERSE UNIT OPERATOR: AAO3 Non focal motor weakness
MS: no edema
Psych: calm
Abnormal Lab Results
12/07/24
10:12
RBC 4.13 L
MCH 31.2 H
MCHC 32.9 L
Lymphocytes % 15.1 L
Potassium 5.2 H
BUN 24 H
Creatinine 1.6 H
Glucose [address] AP Without Iv Or Oral
Prior surgery of the lumbar spine again seen as well as marked L4 vertebral lumbar vertebral compression fracture without gross significant change including some mild retropulsion of bony elements, overall limited by accompanying metallic hardware
beam hardening artifact.
Atrophic right kidney again seen with small cysts. No findings to suggest obstructive uropathy bilaterally.
Prior cholecystectomy. Mild intrahepatic and extrahepatic biliary tract dilatation which may be the sequela of prior cholecystectomy although slightly more prominent in comparison to recent prior study. Suggest correlation with LFTs.
Aneurysmal dilatation of infrarenal abdominal aorta with proximal component appearing slightly increased in size in comparison to recent prior study now measuring 3.7 cm as compared to 3.4 cm.
Last hospitalist admission: Date of Admission: 11/04/24 - Date of Discharge: 11/07/24
DC DXs:
acute viral gastroenteritis
acute urinary retention with trujillo catheter
UTI
ASSESSMENT & PLAN
Pending Rx reconciliation
Recurrent bladder retention; NEG UA
- agree with F cath placement
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
HX CKD3b - baseline ( Cr 1.3s, eGFR hi 30s)
- F Cath drainage
- NS 500 cc
- Trend Cr
Chronic back pain, spinal stenosis
Old L4 vertebral lumbar vertebral compression fracture
- No red flags
- No point tenderness
- PT/OT
- Tylenol PRN
- Lidocaine patch to the back
Known infrarenal abdominal aortic aneurysm; asymptomatic
- now measuring 3.7 cm as compared to 3.4 cm.
DVT Px: SCD
DNR
Obs MS
[2024-12-07 16:14] VITALS: BP 168/91
[2024-12-07] MEDS: NSS 500 IV (16:20)
[2024-12-07] MEDS: LIDOCAINE 4% PATCH 1 PATCH TOPICAL (16:58)
[2024-12-07 21:25] VITALS: BP 181/86
[2024-12-07] MEDS: TYLENOL 1000 MG PO (21:29)
[2024-12-07] MEDS: NEURONTIN 100 MG PO (21:29)
[2024-12-07] MEDS: REMERON 7.5 MG PO (21:29)
[2024-12-07] MEDS: FLOMAX 0.4 MG PO (21:29)
[2024-12-07] MEDS: ABILIFY 2 MG PO (21:29)
[2024-12-07 21:44] VITALS: BP 195/99; BMI 21.3
[2024-12-07] MEDS: COREG 6.25 MG PO (22:19)
[2024-12-07 22:44] VITALS: BP 162/84
[2024-12-07] MEDS: BenGay-Like 1 APPLIC TOPICAL (23:29)
--- NOTE | 2024-12-08 00:46 | PTCARENOTE ---
Patient arrived to unit from ED via stretcher. Patient able to safely ambulate with rw and assist x1 into room 318-1. Patient AAOx3 and able to make needs known. C/o back/L hip pain. No PRN's ordered. FABI Mcnamara notified. New order rec'd for
bettye. Oriented to unit. Call palacios within reach. Plan of care ongoing.
[2024-12-08 06:00] VITALS: BMI 21.3
[2024-12-08 07:51] LABS: Blood Urea Nitrogen 21 mg/dl (7-17); Calcium 9.4 mg/dl (8.4-10.2); Carbon Dioxide 25 mmol/L (22-30); Chloride 105 mmol/L (98-107); Estimated Creatinine Clearance 27 ml/min; Glucose 87 mg/dl (70-99); Potassium 4.7 mmol/L (3.5-5.1); Sodium 140 mmol/L (135-145); eGFR 39.31
[2024-12-08 07:56] VITALS: BP 182/83
--- NOTE | 2024-12-08 08:24 | VNURNOTE ---
Chart reviewed. Patient is current with [facility] PT, OT. Per chart review- goal is placement. [facility] remains available.
[2024-12-08 08:58] VITALS: BP 183/94; PULSE 89; O2SAT 95
[2024-12-08] MEDS: LIDOCAINE 4% PATCH 1 PATCH TOPICAL (09:14)
[2024-12-08] MEDS: TYLENOL 1000 MG PO ×2 (09:14→20:33)
[2024-12-08] MEDS: COREG 6.25 MG PO (09:14)
[2024-12-08] MEDS: NORVASC 10 MG PO (09:14)
[2024-12-08] MEDS: ASPIR LOW (ENTERIC COATED) 81 MG PO (09:15)
[2024-12-08] MEDS: FLOMAX 0.4 MG PO ×2 (09:15→20:33)
[2024-12-08] MEDS: CRESTOR 10 MG PO (09:15)
[2024-12-08] MEDS: PROTONIX 40 MG PO (09:15)
[2024-12-08] MEDS: BenGay-Like 1 APPLIC TOPICAL ×3 (09:15→21:51)
[2024-12-08] MEDS: EFFEXOR 50 MG PO (10:47)
--- NOTE | 2024-12-08 11:39 | W.PN.HOSP.TC ---
Addendum entered and electronically signed by Justine Hatch, DO 12/08/24 12:04:
#Essential HTN
-increase Coreg to 12.5 mg BID and monitor
Original Note:
Today's Communication/Plan
-
Acute on chronic back pain and urinary retention
-PT eval pending for dispo recs
-cont Lidocaine patch, Ortho cx appreciated for options related to severe acute on chronic pain
-DC Jones and begin bladder scanning algorithm
Assessment / Plan
Assessment / Plan
Recurrent bladder retention; NEG UA
- DC Jones catheter and initiate bladder scan protocol w straight cath , monitor urine output and need for Jones
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
HX CKD3b - baseline ( Cr 1.3s, eGFR hi 30s)
- F Cath drainage
- NS 500 cc
- Trend Cr
Acute on Chronic back pain, spinal stenosis w noted old L4 vertebral lumbar vertebral compression fracture, pain is persistent and intractable, preventing safe ambulation-
-cont tylenol and gabapentin
-Ortho cx pending w recs
-PT eval pending today, possible CM consult pending PT recs for placement vs home w home PT
-cont OT
- Lidocaine patch to the back
Known infrarenal abdominal aortic aneurysm; asymptomatic
- now measuring 3.7 cm as compared to 3.4 cm.
- OP f/u
DVT Px: SCD
DNR
Obs MS
Anticipated Discharge: Within 24 hours
Subjective/Interval History
-
Date of Service: December 08, 2024
The patient has significant acute on chronic LBP. Jones cath in place draining yellow clear urine. She denies urinary retention at home. No CP, no SOB, no n/v/d, ate breakfast without issues.
Waiting on PT/OT today
Objective Data
-
Labs:
Laboratory Results
12/08/24
06:43
Sodium 140
Potassium 4.7
Chloride 105
Carbon Dioxide 25
BUN 21 H
Creatinine 1.3 H
Glucose 87
Calcium 9.4
Vital Signs:
Vital Signs
Temp Pulse Resp BP Pulse Ox
97.7 F 80 16 182/83 94
12/08/24 07:56 12/08/24 07:56 12/08/24 07:56 12/08/24 09:14 12/08/24 07:56
I&O
12/07/24 12/08/24 12/09/24
06:59 06:59 06:59
Intake Total 480 / 480
Output Total 1600 / 1600
Balance -1120 / -1120
Review of Systems
-
History Source: Patient
All other systems: Reviewed and negative
Physical Exam
-
General: Well Developed, No Apparent Distress, Comfortable and Appears Chronically Ill (cachexia)
HEENT: Normocephalic and Atraumatic
Respiratory: Clear to Auscultation
Cardiac: Regular Rhythm and S1/S2
GI: Soft, Nontender, Nondistended and Normal Bowel Sounds
Musculoskeletal: No Clubbing, No Cyanosis and No Edema
Skin: Warm and Dry
Neuro: AO x 3 and No Motor Deficits
Psych: Calm
Data Reviewed
-
Labs: Labs Reviewed by me
--- NOTE | 2024-12-08 12:00 | PTCARENOTE ---
pt's trujillo catheter removed per attending. push IVF education provided RE: voiding trial
[2024-12-08] MEDS: PLAVIX 75 MG PO (13:13)
[2024-12-08 15:23] VITALS: BP 139/69
--- NOTE | 2024-12-08 18:08 | PTCARENOTE ---
pt ambulated to bathroom x1 assist with RW. urinated in bathroom, also had small incont amount in bed. bladder scan PVR 151. Pt denies pain. CB in reach
[2024-12-08] MEDS: COREG 12.5 MG PO (20:33)
[2024-12-08] MEDS: REMERON 7.5 MG PO (21:50)
[2024-12-08] MEDS: ABILIFY 2 MG PO (21:50)
[2024-12-08] MEDS: NEURONTIN 100 MG PO (21:50)
[2024-12-08 23:20] VITALS: BP 135/78
[2024-12-09 07:51] LABS: Blood Urea Nitrogen 25 mg/dl (7-17); Calcium 9.3 mg/dl (8.4-10.2); Carbon Dioxide 26 mmol/L (22-30); Chloride 105 mmol/L (98-107); Estimated Creatinine Clearance 26 ml/min; Glucose 98 mg/dl (70-99); Potassium 4.6 mmol/L (3.5-5.1); Sodium 138 mmol/L (135-145); eGFR 35.96
[2024-12-09 08:01] VITALS: BP 144/75
[2024-12-09] MEDS: PROTONIX 40 MG PO (08:27)
[2024-12-09] MEDS: CRESTOR 10 MG PO (08:27)
[2024-12-09] MEDS: EFFEXOR 50 MG PO (08:27)
[2024-12-09] MEDS: COREG 12.5 MG PO (08:27)
[2024-12-09] MEDS: ASPIR LOW (ENTERIC COATED) 81 MG PO (08:27)
[2024-12-09] MEDS: FLOMAX 0.4 MG PO ×2 (08:27→20:06)
[2024-12-09] MEDS: TYLENOL 1000 MG PO ×2 (08:27→20:06)
[2024-12-09] MEDS: NORVASC 10 MG PO (08:28)
[2024-12-09] MEDS: LIDOCAINE 4% PATCH 1 PATCH TOPICAL (08:28)
[2024-12-09] MEDS: BenGay-Like 1 APPLIC TOPICAL ×3 (08:29→21:35)
--- NOTE | 2024-12-09 09:11 | W.PN.HOSP.TC ---
Today's Communication/Plan
-
Hypotension while sitting -- resolved with lying
Echo
Continue monitoring on tele
PT/OT
Placement pending
Assessment / Plan
Assessment / Plan
Physical Exam
General: Well Developed, No Apparent Distress, Comfortable and Appears Chronically Ill (cachexia)
HEENT: Normocephalic and Atraumatic
Respiratory: Clear to Auscultation
Cardiac: Regular Rhythm and S1/S2
GI: Soft, Nontender, Nondistended and Normal Bowel Sounds
Musculoskeletal: No Cyanosis and No Edema
Skin: Warm and Dry
Neuro: AO x 3 and No Motor Deficits
Psych: Calm
Assessment/Plan
89 y/o female with past medical history of chronic back pain, spinal stenosis, Infrarenal abdominal aortic aneurysm, urinary retention, carotid stenosis status post enterectomy, CKD3b, HTN, HLD, CAD a/w recurrent bladder retention. Renal
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 NEG UA. Foleys Cath discontinued, bladder scan w straight cath per protocol, monitor, PT/OT, consider IR Cx for vertebroplasty if pain persists. CT POS for old
L4 vertebral lumbar vertebral compression Fx. DNR. Obs MS. PT/OT.
Recurrent bladder retention; NEG UA
- DC'd Jones catheter and initiate bladder scan protocol w straight cath , monitor urine output and need for Jones
Hypotension associated with lightheadedness
-This was in the sitting position on 12/09/24, resolved after lying down
-Hold Coreg
-Monitor on telemetry
-Check echo
-Check orthostatic vital signs
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
HX CKD3b - baseline ( Cr 1.3s, eGFR hi 30s)
- F Cath drainage
- NS 500 cc
- Trend Cr
Acute on Chronic back pain, spinal stenosis w noted old L4 vertebral lumbar vertebral compression fracture, pain is persistent and intractable, preventing safe ambulation-
-cont tylenol and gabapentin
-Ortho cx pending w recs
-PT eval pending today, possible CM consult pending PT recs for placement vs home w home PT
-cont OT
- Lidocaine patch to the back
Known infrarenal abdominal aortic aneurysm; asymptomatic
- now measuring 3.7 cm as compared to 3.4 cm.
- OP f/u
DVT PPx: SCDs. Heparin subq.
DNR
Anticipated Discharge: 24 - 48 hours
Subjective/Interval History
-
Date of Service: December 09, 2024
Patient was seen and examined. She denied any complaints except for the chronic pain.
Objective Data
-
Labs:
Laboratory Results
12/09/24
06:58
Sodium 138
Potassium 4.6
Chloride 105
Carbon Dioxide 26
BUN 25 H
Creatinine 1.4 H
Glucose 98
Calcium 9.3
Vital Signs:
Vital Signs
Temp Pulse Resp BP Pulse Ox
97.3 F 74 16 144/75 94
12/09/24 08:01 12/09/24 08:01 12/09/24 08:01 12/09/24 08:01 12/09/24 08:01
I&O
12/08/24 12/09/24 12/10/24
06:59 06:59 06:59
Intake Total 480 / 480 840 / 840
Output Total 1600 / 1600 350 / 350
Balance -1120 / -1120 490 / 490
[2024-12-09 11:10] LABS: Hematocrit 36.7 % (37.0-47.0); Hemoglobin 11.8 g/dL (12.0-16.0); Mean Corp Hgb Conc. 32.2 g/dL (33.0-37.0); Mean Corpuscular Hgb 30.3 pg (27.0-31.0); Mean Corpuscular Volume 94.1 fL (81.0-99.0); Mean Platelet Volume 9.1 fL (7.4-10.4); Platelet Count 178 10^3/uL (130-400); Red Cell Dist. Width 14.1 % (11.5-14.5); White Blood Cell Count 5.7 10^3/uL (4.8-10.8)
[2024-12-09 11:20] LABS: ALT (SGPT) 11 U/L (0-35); AST (SGOT) 17 U/L (14-36); Albumin 3.3 g/dl (3.5-5.0); Alkaline Phosphatase 64 U/L (38-126); Blood Urea Nitrogen 25 mg/dl (7-17); Calcium 9.2 mg/dl (8.4-10.2); Carbon Dioxide 28 mmol/L (22-30); Chloride 103 mmol/L (98-107); Estimated Creatinine Clearance 22 ml/min; Glucose 107 mg/dl (70-99); Potassium 4.3 mmol/L (3.5-5.1); Sodium 140 mmol/L (135-145); Total Bilirubin 0.3 mg/dl (0.2-1.3); eGFR 30.64
[2024-12-09 11:36] LABS: Troponin I < 0.012 ng/ml
[2024-12-09 11:45] VITALS: BP 125/58
[2024-12-09] MEDS: PLAVIX 75 MG PO (11:58)
[2024-12-09 15:27] VITALS: BP 130/55
--- NOTE | 2024-12-09 18:30 | PTCARENOTE ---
Pt c/o dizziness when being assisted from bed to commode. Manual BP 82/56, MD aware. BP 125/58 about an hour later when lying down. Denies feelings of dizziness for remainder of shift. Call palacios within reach.
[2024-12-09 19:46] VITALS: BP 133/63
[2024-12-09] MEDS: HEPARIN 5000 UNITS SC (20:06)
[2024-12-09] MEDS: NEURONTIN 100 MG PO (21:33)
[2024-12-09] MEDS: ABILIFY 2 MG PO (21:34)
[2024-12-09] MEDS: REMERON 7.5 MG PO (21:34)
[2024-12-09 23:12] VITALS: BP 116/56
[2024-12-09 23:13] VITALS: BP 116/56; BP 88/52; PULSE 81; PULSE 83
[2024-12-10] VITALS (7 sets, daily range): BP systolic 99–171; BP diastolic 60–90; PULSE 76–113
[2024-12-10 01:09] LABS: Troponin I < 0.012 ng/ml
[2024-12-10 06:38] LABS: Hematocrit 40.7 % (37.0-47.0); Hemoglobin 13.2 g/dL (12.0-16.0); Mean Corp Hgb Conc. 32.4 g/dL (33.0-37.0); Mean Corpuscular Hgb 30.4 pg (27.0-31.0); Mean Corpuscular Volume 93.8 fL (81.0-99.0); Mean Platelet Volume 9.5 fL (7.4-10.4); Platelet Count 192 10^3/uL (130-400); Red Blood Cell Count 4.34 10^6/uL (4.20-5.40); Red Cell Dist. Width 13.9 % (11.5-14.5); White Blood Cell Count 6.2 10^3/uL (4.8-10.8)
[2024-12-10 06:46] LABS: Troponin I < 0.012 ng/ml
[2024-12-10 07:39] LABS: Blood Urea Nitrogen 32 mg/dl (7-17); Calcium 9.6 mg/dl (8.4-10.2); Carbon Dioxide 24 mmol/L (22-30); Chloride 105 mmol/L (98-107); Estimated Creatinine Clearance 22 ml/min; Glucose 98 mg/dl (70-99); Magnesium 2.1 mg/dl (1.6-2.3); Potassium 4.6 mmol/L (3.5-5.1); Sodium 139 mmol/L (135-145); eGFR 30.64
[2024-12-10] MEDS: EFFEXOR 50 MG PO (09:36)
[2024-12-10] MEDS: PROTONIX 40 MG PO (09:36)
[2024-12-10] MEDS: CRESTOR 10 MG PO (09:36)
[2024-12-10] MEDS: FLOMAX 0.4 MG PO (09:36)
[2024-12-10] MEDS: TYLENOL 1000 MG PO ×2 (09:37→21:18)
[2024-12-10] MEDS: ASPIR LOW (ENTERIC COATED) 81 MG PO (09:37)
[2024-12-10] MEDS: HEPARIN 5000 UNITS SC ×2 (09:38→21:16)
[2024-12-10] MEDS: NORVASC PO ×2 (09:38→09:58)
[2024-12-10] MEDS: LIDOCAINE 4% PATCH 1 PATCH TOPICAL (09:39)
[2024-12-10] MEDS: BenGay-Like 1 APPLIC TOPICAL ×3 (09:40→21:21)
--- NOTE | 2024-12-10 10:39 | W.PN.HOSP.TC ---
Today's Communication/Plan
-
Will treat orthostatic hypotension ( hold Flomax then reduce the dose, reduce BB , stop amlodipine, apply compression socks)
Consult urology, pt is unable to do straight cath at home and she lives with her son.
Assessment / Plan
Assessment / Plan
Physical Exam
General: Well Developed, No Apparent Distress, Comfortable and Appears Chronically Ill (cachexia)
HEENT: Normocephalic and Atraumatic
Respiratory: Clear to Auscultation
Cardiac: Regular Rhythm and S1/S2
GI: Soft, Nontender, Nondistended and Normal Bowel Sounds
Musculoskeletal: No Cyanosis and No Edema
Skin: Warm and Dry
Neuro: AO to self and surroundings, she followed simple commands.
Psych: Calm
Assessment/Plan
89 y/o female with past medical history of chronic back pain, spinal stenosis, Infrarenal abdominal aortic aneurysm, urinary retention, carotid stenosis status post enterectomy, CKD3b, HTN, HLD, CAD a/w recurrent bladder retention. Renal
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
Admitted with back pain
# Recurrent bladder retention; NEG UA
Change Flomax dose back to HS as high dose associated with postural hypotension
Will consult urology
# Symptomatic orthostatic Hypotension associated with lightheadedness
Held BP medications. Reduce BB dose to avoid tachycardia. Stop amlodipine
Reduce Flomax
Apply compression socks to lower extremities
She is eating, will hold off on IVF
# Clinical dehydration with underlying CKD3b - baseline ( eGFR hi 30s)
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
s/p IVF
Acute on Chronic back pain, spinal stenosis w noted old L4 vertebral lumbar vertebral compression fracture, pain is persistent and intractable, preventing safe ambulation-
-cont Tylenol and gabapentin
-Ortho cx pending w recs
-cont OT
- Lidocaine patch to the back
Known infrarenal abdominal aortic aneurysm; asymptomatic
- now measuring 3.7 cm as compared to 3.4 cm.
- OP f/u
DVT PPx: SCDs. Heparin subq.
DNR
Total time spent to see the patient, examine the patient, review data and lab results, discuss treatment plan with patient, nursing staff around 55 minutes
Anticipated Discharge: 24 - 48 hours
Subjective/Interval History
-
Date of Service: December 10, 2024
No chest pain
No sob
Objective Data
-
Labs:
Laboratory Results
12/10/24
06:14
WBC 6.2
Hgb 13.2
Hct 40.7
Plt Count 192
Sodium 139
Potassium 4.6
Chloride 105
Carbon Dioxide 24
BUN 32 H
Creatinine 1.6 H
Glucose 98
Calcium 9.6
Vital Signs:
Vital Signs
Temp Pulse Resp BP Pulse Ox
97.4 F 75 17 171/85 96
12/10/24 07:10 12/10/24 07:10 12/10/24 07:10 12/10/24 07:10 12/10/24 07:10
I&O
12/09/24 12/10/24 12/11/24
06:59 06:59 06:59
Intake Total 840 / 840 1140 / 1140
Output Total 350 / 350 600 / 600
Balance 490 / 490 540 / 540
--- NOTE | 2024-12-10 12:11 | CON.MD ---
Consultation - Medical
-
see dictated note
with pt spinal stenosis and pain
recent admit with back pain/UTI- developed urinary retention- discharged with trujillo and flomax- was taken out at [facility]
readmitted with back pain- CT scan negative from gu standpoint except bladder distension
trujillo replaced- now out- tracking pvr's has required intermittent cic
she reports no prior gu hx
plan
continue flomax
start bethanechol 25 bid
track pvr's- if under 250cc observe- if over do not repeat straight cath- instead place trujillo
will follow
[2024-12-10] MEDS: URECHOLINE 25 MG PO ×2 (12:45→21:19)
[2024-12-10] MEDS: PLAVIX 75 MG PO (12:45)
[2024-12-10] MEDS: COREG 3.125 MG PO (17:14)
[2024-12-10] MEDS: REMERON 7.5 MG PO (21:18)
[2024-12-10] MEDS: NEURONTIN 100 MG PO (21:19)
[2024-12-10] MEDS: ABILIFY 2 MG PO (21:19)
[2024-12-11] VITALS (7 sets, daily range): BP systolic 95–164; BP diastolic 57–89; PULSE 74–99
[2024-12-11 07:37] LABS: Blood Urea Nitrogen 37 mg/dl (7-17); Calcium 9.3 mg/dl (8.4-10.2); Carbon Dioxide 26 mmol/L (22-30); Chloride 105 mmol/L (98-107); Estimated Creatinine Clearance 26 ml/min; Glucose 102 mg/dl (70-99); Potassium 4.7 mmol/L (3.5-5.1); Sodium 139 mmol/L (135-145); eGFR 35.96
[2024-12-11] MEDS: TYLENOL 1000 MG PO ×2 (08:11→20:56)
[2024-12-11] MEDS: COREG 3.125 MG PO ×2 (08:12→21:00)
[2024-12-11] MEDS: EFFEXOR 50 MG PO (08:12)
[2024-12-11] MEDS: CRESTOR 10 MG PO (08:12)
[2024-12-11] MEDS: URECHOLINE 25 MG PO ×2 (08:12→21:00)
[2024-12-11] MEDS: PROTONIX 40 MG PO (08:12)
[2024-12-11] MEDS: BenGay-Like 1 APPLIC TOPICAL ×3 (08:13→21:06)
[2024-12-11] MEDS: ASPIR LOW (ENTERIC COATED) 81 MG PO (08:13)
[2024-12-11] MEDS: LIDOCAINE 4% PATCH 1 PATCH TOPICAL (08:14)
[2024-12-11] MEDS: HEPARIN 5000 UNITS SC ×2 (08:14→20:56)
--- NOTE | 2024-12-11 09:23 | W.PN.URO.CBU ---
Today's Communication / Plan
-
continue trujillo- flomax and bethanechol
Assessment / Plan
-
urinary retention
continue flomax and bethanechol
if pt discharged today or tomorrow- home with trujillo and call dr leo to arrange outpt TOV
if stays until saturday- can again try and remove trujillo for inpatient voiding trial
Diagnosis
-
Date of Service: December 11, 2024
-
Patient Diagnosis:
urinary retention
Subjective
-
pt says back pain much improved
trujillo replaced yesterday for PVR of 500cc
urine clear
Objective
-
Vital Signs
Temp Pulse Resp BP Pulse Ox
97.4 F 79 16 164/76 91
12/11/24 07:31 12/11/24 07:31 12/11/24 07:31 12/11/24 07:31 12/11/24 07:31
Intake and Output
12/10/24 12/11/24 12/12/24
06:59 06:59 06:59
Intake Total 1140 / 1140 1200 / 1200
Output Total 600 / 600 900 / 900
Balance 540 / 540 300 / 300
Intake:
Oral fluids 1140 / 1140 1200 / 1200
Output:
Urine, [place] 900 / 900
Straight cath output 600 / 600
Other:
Number of approximated SMALL 2
amounts of urine
Number of approximated MODERATE 2
amounts of urine
How many times incontinent 1
SMALL amount urine
How many times incontinent 1
MODERATE amount urine
Laboratory Results
12/10/24 06:14
12/11/24 06:50
Review of Systems
-
Constitutional: Fatigue
Respiratory: No Symptoms
Cardiac: No Symptoms
Abdomen/GI: No Symptoms
Physical Exam
-
General - no acute distress
--- NOTE | 2024-12-11 09:31 | W.PN.HOSP.TC ---
Today's Communication/Plan
-
Await PT evaluation
Will need ortho BP check today
ok for salt intake
Assessment / Plan
Assessment / Plan
Physical Exam
General: No Apparent Distress, Comfortable and Appears Chronically Ill (cachexia)
HEENT: Normocephalic and Atraumatic
Respiratory: Clear to Auscultation
Cardiac: Regular Rhythm and S1/S2
GI: Soft, Nontender, Nondistended and Normal Bowel Sounds
Musculoskeletal: No Cyanosis and No Edema
Skin: Warm and Dry
Neuro: AO to self and surroundings, she followed simple commands.
Psych: Calm
Assessment/Plan
89 y/o female with past medical history of chronic back pain, spinal stenosis, Infrarenal abdominal aortic aneurysm, urinary retention, carotid stenosis status post enterectomy, CKD3b, HTN, HLD, CAD a/w recurrent bladder retention. Renal
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
Admitted with back pain
# Recurrent bladder retention; NEG UA
Changed Flomax dose back to HS as high dose associated with postural hypotension
Failed voiding trial, has Jones now
Appreciate urology help
# Symptomatic orthostatic Hypotension associated with lightheadedness
Held BP medications. Reduced BB dose to avoid tachycardia. Stop amlodipine
Reduced Flomax
Apply compression socks to lower extremities
She is eating, ok to liberate diet
# Clinical dehydration with underlying CKD3b - baseline ( eGFR 30s)
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
s/p IVF
Acute on Chronic back pain, spinal stenosis w noted old L4 vertebral lumbar vertebral compression fracture, pain is persistent and intractable, preventing safe ambulation-
-cont Tylenol and gabapentin
-Ortho cx pending w recs
-cont OT
- Lidocaine patch to the back
Known infrarenal abdominal aortic aneurysm; asymptomatic
- now measuring 3.7 cm as compared to 3.4 cm.
- OP f/u
DVT PPx: SCDs. Heparin subq.
DNR
Total time spent to see the patient, examine the patient, review data and lab results, discuss treatment plan with patient, nursing staff around 55 minutes
Anticipated Discharge: 24 - 48 hours
Subjective/Interval History
-
Date of Service: December 11, 2024
No chest pain
No sob
Less back pain
Objective Data
-
Labs:
Laboratory Results
12/11/24
06:50
Sodium 139
Potassium 4.7
Chloride 105
Carbon Dioxide 26
BUN 37 H
Creatinine 1.4 H
Glucose 102 H
Calcium 9.3
Vital Signs:
Vital Signs
Temp Pulse Resp BP Pulse Ox
97.4 F 79 16 164/76 91
12/11/24 07:31 12/11/24 07:31 12/11/24 07:31 12/11/24 07:31 12/11/24 07:31
I&O
12/10/24 12/11/24 12/12/24
06:59 06:59 06:59
Intake Total 1140 / 1140 1200 / 1200
Output Total 600 / 600 900 / 900
Balance 540 / 540 300 / 300
[2024-12-11] MEDS: PLAVIX 75 MG PO (14:13)
[2024-12-11] MEDS: NEURONTIN 100 MG PO (21:00)
[2024-12-11] MEDS: ABILIFY 2 MG PO (21:00)
[2024-12-11] MEDS: REMERON 7.5 MG PO (21:00)
[2024-12-12] VITALS (7 sets, daily range): BP systolic 67–161; BP diastolic 44–84; PULSE 76–86
[2024-12-12 07:47] LABS: Hematocrit 38.3 % (37.0-47.0); Mean Corp Hgb Conc. 33.9 g/dL (33.0-37.0); Mean Corpuscular Hgb 31.1 pg (27.0-31.0); Mean Corpuscular Volume 91.6 fL (81.0-99.0); Mean Platelet Volume 9.3 fL (7.4-10.4); Platelet Count 189 10^3/uL (130-400); Red Blood Cell Count 4.18 10^6/uL (4.20-5.40); White Blood Cell Count 5.3 10^3/uL (4.8-10.8)
[2024-12-12 08:16] LABS: Blood Urea Nitrogen 40 mg/dl (7-17); Calcium 9.2 mg/dl (8.4-10.2); Carbon Dioxide 26 mmol/L (22-30); Chloride 105 mmol/L (98-107); Estimated Creatinine Clearance 26 ml/min; Glucose 98 mg/dl (70-99); Potassium 4.7 mmol/L (3.5-5.1); Sodium 139 mmol/L (135-145); eGFR 35.96
[2024-12-12] MEDS: PROTONIX 40 MG PO (09:13)
[2024-12-12] MEDS: URECHOLINE 25 MG PO ×2 (09:13→20:23)
[2024-12-12] MEDS: EFFEXOR 50 MG PO (09:13)
[2024-12-12] MEDS: ASPIR LOW (ENTERIC COATED) 81 MG PO (09:13)
[2024-12-12] MEDS: CRESTOR 10 MG PO (09:14)
[2024-12-12] MEDS: COREG 3.125 MG PO ×2 (09:14→20:22)
[2024-12-12] MEDS: HEPARIN 5000 UNITS SC ×2 (09:14→20:21)
[2024-12-12] MEDS: TYLENOL 1000 MG PO ×2 (09:14→20:22)
[2024-12-12] MEDS: BenGay-Like 1 APPLIC TOPICAL ×3 (09:15→21:34)
[2024-12-12] MEDS: LIDOCAINE 4% PATCH 1 PATCH TOPICAL (09:15)
--- NOTE | 2024-12-12 10:05 | W.PN.HOSP.TC ---
Addendum entered and electronically signed by Bar Lambert MD 12/12/24 15:41:
Addendum
Report of loose stools, check c diff and Norovirus test
Low BP, will give IVF
End
Original Note:
Today's Communication/Plan
-
dc planning
Assessment / Plan
Assessment / Plan
Physical Exam
General: No Apparent Distress, Comfortable and Appears Chronically Ill (cachexia)
HEENT: Normocephalic and Atraumatic
Respiratory: Clear to Auscultation
Cardiac: Regular Rhythm and S1/S2
GI: Soft, Nontender, Nondistended and Normal Bowel Sounds
Musculoskeletal: No Cyanosis and No Edema
Skin: Warm and Dry
Neuro: AO to self and surroundings, she followed simple commands.
Psych: Calm
Assessment/Plan
89 y/o female with past medical history of chronic back pain, spinal stenosis, Infrarenal abdominal aortic aneurysm, urinary retention, carotid stenosis status post enterectomy, CKD3b, HTN, HLD, CAD a/w recurrent bladder retention. Renal
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
Admitted with back pain
# Recurrent bladder retention; NEG UA
Changed Flomax dose back to HS as high dose associated with postural hypotension
Failed voiding trial, has Jones now
Appreciate urology help
# Symptomatic orthostatic Hypotension associated with lightheadedness
Held BP medications. Reduced BB dose to avoid tachycardia. Stop amlodipine
Reduced Flomax
Apply compression socks to lower extremities
She is eating, ok to liberate diet
# Clinical dehydration with underlying CKD3b - baseline ( eGFR 30s)
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
s/p IVF
Acute on Chronic back pain, spinal stenosis w noted old L4 vertebral lumbar vertebral compression fracture, pain is persistent and intractable, preventing safe ambulation-
-cont Tylenol and gabapentin
-Ortho cx pending w recs
-cont OT
- Lidocaine patch to the back
Known infrarenal abdominal aortic aneurysm; asymptomatic
- now measuring 3.7 cm as compared to 3.4 cm.
- OP f/u
DVT PPx: SCDs. Heparin subq.
DNR
Total time spent to see the patient, examine the patient, review data and lab results, discuss treatment plan with patient, nursing staff around 55 minutes
Anticipated Discharge: Today
Subjective/Interval History
-
Date of Service: December 12, 2024
No chest pain
No abdominal pain
Objective Data
-
Labs:
Laboratory Results
12/12/24
07:30
WBC 5.3
Hgb 13.0
Hct 38.3
Plt Count 189
Sodium 139
Potassium 4.7
Chloride 105
Carbon Dioxide 26
BUN 40 H
Creatinine 1.4 H
Glucose 98
Calcium 9.2
Vital Signs:
Vital Signs
Temp Pulse Resp BP Pulse Ox
97.9 F 75 17 161/75 92
12/12/24 07:00 12/12/24 09:14 12/12/24 07:00 12/12/24 09:14 12/12/24 07:00
I&O
12/11/24 12/12/24 12/13/24
06:59 06:59 06:59
Intake Total 1200 / 1200 1560 / 1560
Output Total 900 / 900 1000 / 1000
Balance 300 / 300 560 / 560
[2024-12-12] MEDS: PLAVIX 75 MG PO (12:41)
--- NOTE | 2024-12-12 14:58 | PTCARENOTE ---
pt's orthostatic BP symptomatic while sitting, assisted back to bed and resolved once back in bed. encourage fluids, reminder to use CB D/T fall risk. No change in assessment, pain managed. CB in reach
[2024-12-12 15:26] LABS: Glucose - Point of Care 118 mg/dl (70-99)
[2024-12-12] MEDS: NSS 1000 IV (16:52)
[2024-12-12] MEDS: ABILIFY 2 MG PO (21:32)
[2024-12-12] MEDS: REMERON 7.5 MG PO (21:32)
[2024-12-12] MEDS: NEURONTIN 100 MG PO (21:33)
[2024-12-13 03:00] VITALS: BP 179/98
[2024-12-13] MEDS: NSS 1000 IV (04:47)
[2024-12-13 07:05] VITALS: BP 168/90
[2024-12-13] MEDS: EFFEXOR 50 MG PO (08:10)
[2024-12-13] MEDS: COREG 3.125 MG PO ×2 (08:10→19:50)
[2024-12-13] MEDS: ASPIR LOW (ENTERIC COATED) 81 MG PO (08:11)
[2024-12-13] MEDS: URECHOLINE 25 MG PO ×2 (08:11→19:50)
[2024-12-13] MEDS: CRESTOR 10 MG PO (08:11)
[2024-12-13] MEDS: TYLENOL 1000 MG PO ×2 (08:11→19:50)
[2024-12-13] MEDS: HEPARIN 5000 UNITS SC ×2 (08:11→19:51)
[2024-12-13] MEDS: PROTONIX 40 MG PO (08:11)
[2024-12-13] MEDS: LIDOCAINE 4% PATCH 1 PATCH TOPICAL (08:12)
[2024-12-13] MEDS: BenGay-Like 1 APPLIC TOPICAL ×3 (08:13→21:08)
--- NOTE | 2024-12-13 09:14 | W.PN.HOSP.TC ---
Today's Communication/Plan
-
dc
Assessment / Plan
Assessment / Plan
Physical Exam
General: No Apparent Distress, Comfortable and Appears Chronically Ill (cachexia)
HEENT: Normocephalic and Atraumatic
Respiratory: Clear to Auscultation
Cardiac: Regular Rhythm and S1/S2
GI: Soft, Nontender, Nondistended and Normal Bowel Sounds
Musculoskeletal: No Cyanosis and No Edema
Skin: Warm and Dry
Neuro: AO to self and surroundings, she followed simple commands.
Psych: Calm
Assessment/Plan
89 y/o female with past medical history of chronic back pain, spinal stenosis, Infrarenal abdominal aortic aneurysm, urinary retention, carotid stenosis status post enterectomy, CKD3b, HTN, HLD, CAD a/w recurrent bladder retention. Renal
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
Admitted with back pain
# Recurrent bladder retention; NEG UA
Changed Flomax dose back to HS as high dose associated with postural hypotension
Failed voiding trial, has Jones now
Appreciate urology help
# Symptomatic orthostatic Hypotension associated with lightheadedness, likely due to autonomic dysfunction.
Held BP medications. Reduced BB dose to avoid tachycardia. Stopped amlodipine
Per daughter, pt has known history of postural hypotension, even associated with syncope
Reduced Flomax
Apply compression socks to lower extremities
She is eating, ok to liberate diet
Given IVF over night and it helped.
#IBS
per daughter, pt has hx of constipation/ diarrhea
no abdominal pain or tenderness
# Clinical dehydration with underlying CKD3b - baseline ( eGFR 30s)
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
s/p IVF
Acute on Chronic back pain, spinal stenosis w noted old L4 vertebral lumbar vertebral compression fracture, pain is persistent and intractable, preventing safe ambulation-
-cont Tylenol and gabapentin
-Ortho cx pending w recs
-cont OT
- Lidocaine patch to the back
Known infrarenal abdominal aortic aneurysm; asymptomatic
- now measuring 3.7 cm as compared to 3.4 cm.
- OP f/u
DVT PPx: SCDs. Heparin subq.
DNR
Total time spent to see the patient, examine the patient, review data and lab results, discuss treatment plan with patient, nursing staff around 55 minutes
Anticipated Discharge: Today
Subjective/Interval History
-
Date of Service: December 13, 2024
No chest pain
No sob
Objective Data
-
Vital Signs:
Vital Signs
Temp Pulse Resp BP Pulse Ox
97.4 F 90 16 168/90 94
12/13/24 07:05 12/13/24 07:05 12/13/24 07:05 12/13/24 07:05 12/13/24 07:05
I&O
12/12/24 12/13/24 12/14/24
06:59 06:59 06:59
Intake Total 1560 / 1560 1981 / 1981
Output Total 1000 / 1000 650 / 650
Balance 560 / 560 1332 / 1332
[2024-12-13 11:00] VITALS: BP 134/60
--- NOTE | 2024-12-13 11:44 | PTCARENOTE ---
pt transferred to 326 d/t positive norovirus result. Report given to Cierra CASTILLO.
--- NOTE | 2024-12-13 12:15 | W.PN.URO.CBU ---
Today's Communication / Plan
-
LEAVE TRUJILLO
Assessment / Plan
-
urinary retention
continue flomax and bethanechol
if pt discharged today or tomorrow- home with trujillo and call dr leo to arrange outpt TOV
if stays until saturday- can again try and remove trujillo for inpatient voiding trial PT WITH NEURO VIRIS AND WEAK WILL LEAVE TRUJILLO FOR NOW
Diagnosis
-
Date of Service: December 13, 2024
-
Patient Diagnosis:
Post Op Day:
Patient Diagnosis:
urinary retention
Subjective
-
does not mind trujillo would like oit out
Objective
-
Vital Signs
Temp Pulse Resp BP Pulse Ox
97.4 F 90 16 168/90 94
12/13/24 07:05 12/13/24 07:05 12/13/24 07:05 12/13/24 07:05 12/13/24 07:05
Intake and Output
12/12/24 12/13/24 12/14/24
06:59 06:59 06:59
Intake Total 1560 / 1560 1981
Output Total 1000 / 1000 650 / 650
Balance 560 / 560 1332 / 1332
Intake:
Oral fluids 1560 / 1560 1981
Output:
Urine, Trujillo 500 / 500 650 / 650
Urine, Voided 500 / 500
Laboratory Results
12/12/24 07:30
12/12/24 07:30
Review of Systems
-
: Difficulty Voiding
Physical Exam
-
General - well developed, well nourished, no acute distress
Chest - clear bilaterally
Abdomen - soft, non-tender, positive bowel sounds, no CVAT, no incisional pain or distention
Genitalia - normal
Rectal - normal
Skin - warm & dry with no rash
Neuro - AOx3, no motor deficits
Extremities - no clubbing, no cyanosis, no edema
Incision - clean, dry
Dressing - clean, dry, intact
Care Review
Data Reviewed
Discussed with: Nursing
[2024-12-13] MEDS: PLAVIX 75 MG PO (12:54)
--- NOTE | 2024-12-13 14:11 | CM ---
Patient transferred to room 326 (Positive Neurovirus)
[facility] accepted SNF referral
Plan: Discharge to SNF when medically stable
[2024-12-13 15:00] VITALS: BP 102/62; BP 177/76; PULSE 70; PULSE 85
[2024-12-13 19:48] VITALS: BP 176/84
[2024-12-13] MEDS: NEURONTIN 100 MG PO (21:08)
[2024-12-13] MEDS: REMERON 7.5 MG PO (21:08)
[2024-12-13] MEDS: ABILIFY 2 MG PO (21:08)
[2024-12-13 23:26] VITALS: BP 153/68
[2024-12-14] VITALS (9 sets, daily range): BP systolic 88–172; BP diastolic 52–101; PULSE 73–115
[2024-12-14 06:03] LABS: Hematocrit 35.4 % (37.0-47.0); Hemoglobin 11.7 g/dL (12.0-16.0); Mean Corp Hgb Conc. 33.1 g/dL (33.0-37.0); Mean Corpuscular Hgb 30.9 pg (27.0-31.0); Mean Corpuscular Volume 93.4 fL (81.0-99.0); Mean Platelet Volume 9.3 fL (7.4-10.4); Platelet Count 191 10^3/uL (130-400); Red Blood Cell Count 3.79 10^6/uL (4.20-5.40); White Blood Cell Count 8.5 10^3/uL (4.8-10.8)
[2024-12-14 06:26] LABS: Blood Urea Nitrogen 30 mg/dl (7-17); Calcium 8.8 mg/dl (8.4-10.2); Carbon Dioxide 26 mmol/L (22-30); Chloride 108 mmol/L (98-107); Estimated Creatinine Clearance 27 ml/min; Glucose 97 mg/dl (70-99); Potassium 4.6 mmol/L (3.5-5.1); Sodium 140 mmol/L (135-145); eGFR 39.31
[2024-12-14] MEDS: BenGay-Like 1 APPLIC TOPICAL ×3 (08:38→21:50)
[2024-12-14] MEDS: URECHOLINE 25 MG PO ×2 (08:39→20:05)
[2024-12-14] MEDS: TYLENOL 1000 MG PO ×2 (08:39→20:05)
[2024-12-14] MEDS: HEPARIN 5000 UNITS SC ×2 (08:39→20:04)
[2024-12-14] MEDS: PROTONIX 40 MG PO (08:39)
[2024-12-14] MEDS: CRESTOR 10 MG PO (08:39)
[2024-12-14] MEDS: EFFEXOR 50 MG PO (08:39)
[2024-12-14] MEDS: COREG 3.125 MG PO ×2 (08:39→20:05)
[2024-12-14] MEDS: ASPIR LOW (ENTERIC COATED) 81 MG PO (08:39)
[2024-12-14] MEDS: LIDOCAINE 4% PATCH 1 PATCH TOPICAL (08:40)
--- NOTE | 2024-12-14 09:05 | W.PN.HOSP.TC ---
Today's Communication/Plan
-
dc planning
Assessment / Plan
Assessment / Plan
Physical Exam
General: No Apparent Distress, Comfortable and Appears Chronically Ill (cachexia)
HEENT: Normocephalic and Atraumatic
Respiratory: Clear to Auscultation
Cardiac: Regular Rhythm and S1/S2
GI: Soft, Nontender, Nondistended and Normal Bowel Sounds
Musculoskeletal: No Cyanosis and No Edema
Skin: Warm and Dry
Neuro: AO to self and surroundings, she followed simple commands.
Psych: Calm
Assessment/Plan
89 y/o female with past medical history of chronic back pain, spinal stenosis, Infrarenal abdominal aortic aneurysm, urinary retention, carotid stenosis status post enterectomy, CKD3b, HTN, HLD, CAD a/w recurrent bladder retention. Renal
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
Admitted with back pain
# Recurrent bladder retention; NEG UA
Changed Flomax dose back to HS as high dose associated with postural hypotension
Failed voiding trial, has Jones now
Appreciate urology help
# Symptomatic orthostatic Hypotension associated with lightheadedness, likely due to autonomic dysfunction.
Held BP medications. Reduced BB dose to avoid tachycardia. Stopped amlodipine
Per daughter, pt has known history of postural hypotension, even associated with syncope
Reduced Flomax
Apply compression socks to lower extremities
She is eating, ok to liberate diet
Given IVF over night and it helped.
#IBS with acute Norovirus infection
seems mild viral infection. Abdomen exam is completely benign. No more diarrhea. She is tolerating diet,no N/V
per daughter, pt has hx of constipation/ diarrhea
# Clinical dehydration with underlying CKD3b - baseline ( eGFR 30s)
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
s/p IVF
Acute on Chronic back pain, spinal stenosis w noted old L4 vertebral lumbar vertebral compression fracture, pain is persistent and intractable, preventing safe ambulation-
-cont Tylenol and gabapentin
-Ortho cx pending w recs
-cont OT
- Lidocaine patch to the back
Known infrarenal abdominal aortic aneurysm; asymptomatic
- now measuring 3.7 cm as compared to 3.4 cm.
- OP f/u
DVT PPx: SCDs. Heparin subq.
DNR
Total time spent to see the patient, examine the patient, review data and lab results, discuss treatment plan with patient, nursing staff around 55 minutes
Anticipated Discharge: Today
Subjective/Interval History
-
Date of Service: December 14, 2024
No chest pain
No abdominal pain
Objective Data
-
Labs:
Laboratory Results
12/14/24
05:47
WBC 8.5
Hgb 11.7 L
Hct 35.4 L
Plt Count 191
Sodium 140
Potassium 4.6
Chloride 108 H
Carbon Dioxide 26
BUN 30 H
Creatinine 1.3 H
Glucose 97
Calcium 8.8
Vital Signs:
Vital Signs
Temp Pulse Resp BP Pulse Ox
98.5 F 68 20 150/101 93
12/14/24 07:05 12/14/24 08:39 12/14/24 07:05 12/14/24 08:39 12/14/24 07:05
I&O
12/13/24 12/14/24 12/15/24
06:59 06:59 06:59
Intake Total 1981 / 1981 1500 / 1500
Output Total 650 / 650 1200 / 1200
Balance 1332 / 1332 300 / 300
--- NOTE | 2024-12-14 12:31 | W.DCSUMMARY ---
Discharge Summary
Discharge Data
Date of Admission: 12/10/24
Date of Discharge: 12/15/24
-
Pending Results: No
Hospital Course
89 years old female presented with back pain. Patient was admitted recently with urinary retention and urinary tract infection. She was discharged to [facility] for continued physical therapy and returned home on November 21. Patient noted her Jones
catheter was removed prior to discharge from [facility]. While in the emergency department patient was found to urinary retention and Jones catheter was replaced. Patient reported back pain was chronic but worsened over the past few days. She denied
chest pain, sob, fevers, sweats or chills. She was found to have mild hyperkalemia with underlying chronic kidney disease around stage IIIb. Losartan was held. Urologist was consulted. Imaging studies did not show hydronephrosis. Urologist
recommended to keep Jones. Patient was noted to have symptomatic orthostatic hypotension. She was given intravenous fluid and blood pressure medications were adjusted. Per family, patient had history of orthostatic hypotension in the past with
syncopal episodes. Patient was noted to have diarrhea. Norovirus test came back positive. Patient did not have nausea or vomiting or abdominal pain. She seemed to have mild viral infection. Her abdominal examination remained benign. Back pain
significantly improved after treating her urinary retention. Patient remained hemodynamically stable. Creatinine was 1.3 upon discharge. Patient was evaluated by physical therapy recommended longterm facility. She was discharged to SNF
in a stable condition.
Discharge Plan
-
Patient Disposition: Long Term/SNF
Discharge Diagnosis/Procedures: Acute urinary retention
Acute on chronic back pain
Acute Norovirus
Symptomatic postural hypotension: Avoid starting new blood pressure medication or increasing the dose based on sitting blood pressure.
Diet: As tolerated
Referrals:
Chacorta Solis CRNP [Family Provider] -
Esteban Whipple MD [Active] - in two to four weeks
Prescriptions:
New
bethanechol chloride 25 mg Tablet
25 mg PO BID Qty: 60 0RF
midodrine 2.5 mg Tablet
2.5 mg PO Q4HPRN PRN (Reason: standing SBP less than 100) Qty: 10 0RF
Continued
pantoprazole 40 MG tablet,delayed release (DR/EC)
40 mg PO DAILY
rosuvastatin 10 mg Tablet
10 mg PO DAILY
aripiprazole 2 mg Tablet
2 mg PO HS Qty: 30 0RF
gabapentin 100 mg Capsule
100 mg PO HS Qty: 20 0RF
latanoprost [Xalatan] 0.005 % Drops
1 drp BOTH EYES DAILY
aspirin 81 mg Tablet,Delayed Release (Dr/Ec)
81 mg PO DAILY
polyethylene glycol 3350 [HealthyLax] 17 gram powder in packet
17 g PO DAILYPRN PRN (Reason: constipation)
cyanocobalamin (vitamin B-12) 1,000 mcg Tablet
1,000 mcg PO DAILY
ferrous sulfate 325 mg (65 mg iron) Tablet
325 mg PO DAILY
venlafaxine 50 mg Tablet
50 mg PO DAILY
mirtazapine 7.5 mg Tablet
7.5 mg PO HS
acetaminophen [Tylenol Extra Strength] 500 mg tablet
1,000 mg PO BID
Align (B.infantis) 4 mg Capsule
4 mg PO HS
lidocaine 4 % adhesive patch,medicated
1 patch topical DAILYPRN PRN (Reason: mild pain)
Rx Instructions:
Remove patch daily at 8 pm
clopidogrel 75 MG tablet
75 mg PO NOON
Rx Instructions:
Resume only after discussion with Primary rigging helper
tamsulosin 0.4 mg capsule
0.4 mg PO HS
Changed
carvedilol 6.25 MG tablet
3.125 mg PO BID Qty: 60 0RF
Discontinued
amlodipine [Norvasc] 10 MG tablet
10 mg PO DAILY Qty: 30 0RF
losartan 100 mg Tablet
100 mg PO DAILY
Discharge Orders:
Discharge Patient (As Directed); Ordered 12/14/24
Ordered By: Bar Lambert
Discharge Date and Time
Print Language: SYRIAC
[2024-12-14] MEDS: PLAVIX 75 MG PO (12:41)
--- NOTE | 2024-12-14 15:45 | CM ---
Addendum entered by ZULAY Moffett 12/14/24 17:30:
Placed a call to patient's listed cell# and a male answered and stated that he is patient's son. Son was asked if he was in room with patient and he stated that the call was made to a landline not a cell. Patient's son stated that his name is Jeremi
and he was advised that CM will not be able to talk to him as he is not a listed contact.
Placed a call to patient's daughter Darlene who was relieved to hear that SNF has been indicated however she stated that patient has been to [facility] in the past and there is no way she wants her transferred there again.
She stated that she will be agreeable to referrals being made to [facility], [facility], [facility] and [facility].
Attending updated. CM director and metal furniture assembly supervisor updated.
Will resend referrals that have been sent to facilities already from 12/07 and send referral to [facility].
Transportation cancelled. RN aware.
Admissions at [facility] made aware.
Original Note:
Per attending patient is stable for discharge. Placed a call to Radha in admissions at [facility] who stated that patient has a bed at facility. # For report [phone] and fax# [phone]
Will complete medical necessity and transfer sheet for [facility] care unit nurse.
Will review IMM.
Plan: Case management will continue to follow and assist with discharge planning. [facility].
--- NOTE | 2024-12-14 17:02 | PTCARENOTE ---
insurance and benefits clerk informed this lottery manager is cancelled.
[2024-12-14] MEDS: NEURONTIN 100 MG PO (21:50)
[2024-12-14] MEDS: ABILIFY 2 MG PO (21:50)
[2024-12-14] MEDS: REMERON 7.5 MG PO (21:50)
[2024-12-15 00:04] VITALS: BP 111/60; BP 135/84; BP 136/71; PULSE 104; PULSE 112; PULSE 74
[2024-12-15 03:21] VITALS: BP 172/80
[2024-12-15 07:45] VITALS: BP 177/89
[2024-12-15] MEDS: EFFEXOR 50 MG PO (08:17)
[2024-12-15] MEDS: LIDOCAINE 4% PATCH 1 PATCH TOPICAL (08:17)
[2024-12-15] MEDS: HEPARIN 5000 UNITS SC (08:17)
[2024-12-15] MEDS: PROTONIX 40 MG PO (08:17)
[2024-12-15] MEDS: URECHOLINE 25 MG PO (08:17)
[2024-12-15] MEDS: CRESTOR 10 MG PO (08:18)
[2024-12-15] MEDS: ASPIR LOW (ENTERIC COATED) 81 MG PO (08:18)
[2024-12-15] MEDS: TYLENOL 1000 MG PO (08:18)
[2024-12-15] MEDS: COREG 3.125 MG PO (08:18)
[2024-12-15] MEDS: BenGay-Like 1 APPLIC TOPICAL (08:23)
--- NOTE | 2024-12-15 09:36 | W.PN.HOSP.TC ---
Today's Communication/Plan
-
dc
Assessment / Plan
Assessment / Plan
Physical Exam
General: No Apparent Distress, Comfortable and Appears Chronically Ill (cachexia)
HEENT: Normocephalic and Atraumatic
Respiratory: Clear to Auscultation
Cardiac: Regular Rhythm and S1/S2
GI: Soft, Nontender, Nondistended and Normal Bowel Sounds
Musculoskeletal: No Cyanosis and No Edema
Skin: Warm and Dry
Neuro: AO to self and surroundings, she followed simple commands.
Psych: Calm
Assessment/Plan
89 y/o female with past medical history of chronic back pain, spinal stenosis, Infrarenal abdominal aortic aneurysm, urinary retention, carotid stenosis status post enterectomy, CKD3b, HTN, HLD, CAD a/w recurrent bladder retention. Renal
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
Admitted with back pain
# Recurrent bladder retention; NEG UA
Changed Flomax dose back to HS as high dose associated with postural hypotension
Failed voiding trial, has Jones now
Appreciate urology help
# Symptomatic orthostatic Hypotension associated with lightheadedness, likely due to autonomic dysfunction.
Held BP medications. Reduced BB dose to avoid tachycardia. Stopped amlodipine
Per daughter, pt has known history of postural hypotension, even associated with syncope
Reduced Flomax
Apply compression socks to lower extremities
She is eating, ok to liberate diet
Given IVF over night and it helped.
#IBS with acute Norovirus infection
seems mild viral infection. Abdomen exam is completely benign. No more diarrhea. She is tolerating diet,no N/V
per daughter, pt has hx of constipation/ diarrhea
# Clinical dehydration with underlying CKD3b - baseline ( eGFR 30s)
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
s/p IVF
Acute on Chronic back pain, spinal stenosis w noted old L4 vertebral lumbar vertebral compression fracture, pain is persistent and intractable, preventing safe ambulation-
-cont Tylenol and gabapentin
-Ortho cx pending w recs
-cont OT
- Lidocaine patch to the back
Known infrarenal abdominal aortic aneurysm; asymptomatic
- now measuring 3.7 cm as compared to 3.4 cm.
- OP f/u
DVT PPx: SCDs. Heparin subq.
DNR
Total time spent to see the patient, examine the patient, review data and lab results, discuss treatment plan with patient, nursing staff around 55 minutes
Anticipated Discharge: Today
Subjective/Interval History
-
Date of Service: December 15, 2024
No chest pain
No abdominal pain
No nausea
No diarrhea
Objective Data
-
Vital Signs:
Vital Signs
Temp Pulse Resp BP Pulse Ox
98.0 F 78 16 177/89 97
12/15/24 07:45 12/15/24 08:18 12/15/24 07:45 12/15/24 08:18 12/15/24 07:45
I&O
12/14/24 12/15/24 12/16/24
06:59 06:59 06:59
Intake Total 1500 / 1500 240 / 240
Output Total 1200 / 1200 1325 / 1325
Balance 300 / 300 -1085 / -1085
--- NOTE | 2024-12-15 11:24 | CM ---
Placed a call to Nelli in admissions at [facility] who stated that she would review referral and return call to CM regarding whether she can take patient today. Will await return call.
Plan: Case management will continue to follow and assist with discharge planning. Transfer to SNF upon bed availability.
[2024-12-15 11:29] VITALS: BP 144/57
[2024-12-15] MEDS: PLAVIX 75 MG PO (12:30)
--- NOTE | 2024-12-15 13:03 | CM ---
Placed a call to Nelli in admissions at [facility] who stated that she will review referral and get back to regarding acceptance. Nelli confirmed that she can take patient for SNF # For report [phone] and fax# [phone].
Medical necessity and transfer sheet completed for patient to transfer.
Placed a call to patient's daughter, Simi, who stated that she is agreeable to [facility] and had no concerns. Reviewed IMM. It is signed and on chart.
Plan: Case management will continue to follow and assist with discharge planning. [facility].
[2024-12-15 13:24] VITALS: BP 109/74; BP 140/78; BP 163/87; PULSE 106; PULSE 74; PULSE 92
[2024-12-15 15:37] VITALS: BP 179/90
== END 2024-12-15 15:55 | DRG 552 ==
LOC: 3 WEST ACU 10:38
PROVIDERS: Hospitalist; Internal Medicine; Physician Assistant Medical; ADMITTING PHYSICIAN Internal Medicine; ATTENDING PHYSICIAN Internal Medicine; EMERGENCY PHYSICIAN Student in an Organized Health Care Education/Training Program; FAMILY PHYSICIAN Nurse Practitioner Adult Health; OTHER PHYSICIAN Specialist
DX: M54.50 Low back pain, unspecified (principal); A08.11 Acute gastroenteropathy due to Norwalk agent; S32.000G Wedge compression fracture of unspecified lumbar vertebra, subsequent encounter for fracture with delayed healing; I95.1 Orthostatic hypotension; E87.5 Hyperkalemia; N18.32 Chronic kidney disease, stage 3b; M48.00 Spinal stenosis, site unspecified; I25.10 Atherosclerotic heart disease of native coronary artery without angina pectoris; I71.43 Infrarenal abdominal aortic aneurysm, without rupture; I12.9 Hypertensive chronic kidney disease with stage 1 through stage 4 chronic kidney disease, or unspecified chronic kidney disease; F32.A Depression, unspecified; F41.9 Anxiety disorder, unspecified; Z90.49 Acquired absence of other specified parts of digestive tract; Z88.5 Allergy status to narcotic agent; Z79.02 Long term (current) use of antithrombotics/antiplatelets; Z79.82 Long term (current) use of aspirin; Z66 Do not resuscitate; Z91.041 Radiographic dye allergy status; E78.00 Pure hypercholesterolemia, unspecified; K58.9 Irritable bowel syndrome, unspecified; K59.00 Constipation, unspecified; D64.9 Anemia, unspecified; E11.22 Type 2 diabetes mellitus with diabetic chronic kidney disease; Z87.891 Personal history of nicotine dependence; R33.9 Retention of urine, unspecified
CPT/HCPCS: 51702; 51798; 74176; 80048; 80053; 81003; 82962; 83735; 84484; 85025; 85027; 87324; 87449; 87798; 93005; 93306; 97166; 97530; 99285

== ENCOUNTER → 2024-12-21 12:21 | Outpatient (REF) | payer OTHER, MEDICARE, SELFPAY ==
[2024-12-21 12:35] LABS: % Basophils 0.9 % (0-2); % Eosinophils 6.9 % (0-6); % Immature Granulocytes 0.3 % (0-0.5); % Monocytes 10.7 % (1.7-9.3); % Neutrophils 52.2 % (42.2-75.2); Absolute Basophils 0.1 10^3/uL (0-0.2); Absolute Eosinophils 0.4 10^3/uL (0-0.7); Absolute Lymphocytes 1.9 10^3/uL (1.2-3.4); Absolute Monocytes 0.7 10^3/uL (0.1-0.6); Absolute Neutrophils 3.3 10^3/uL (1.4-6.5); Hematocrit 32.4 % (37.0-47.0); Hemoglobin 10.4 g/dL (12.0-16.0); Mean Corp Hgb Conc. 32.1 g/dL (33.0-37.0); Mean Corpuscular Hgb 31.4 pg (27.0-31.0); Mean Corpuscular Volume 97.9 fL (81.0-99.0); Nucleated Red Blood Cells % 0 %; Platelet Count 206 10^3/uL (130-400); Red Blood Cell Count 3.31 10^6/uL (4.20-5.40); Red Cell Dist. Width 14.5 % (11.5-14.5); White Blood Cell Count 6.4 10^3/uL (4.8-10.8)
[2024-12-21 12:50] LABS: ALT (SGPT) 13 U/L (0-35); AST (SGOT) 19 U/L (14-36); Alkaline Phosphatase 80 U/L (38-126); Blood Urea Nitrogen 30 mg/dl (7-17); Calcium 9.1 mg/dl (8.4-10.2); Carbon Dioxide 26 mmol/L (22-30); Chloride 106 mmol/L (98-107); Glucose 100 mg/dl (70-99); Potassium 4.5 mmol/L (3.5-5.1); Sodium 140 mmol/L (135-145); Total Bilirubin 0.3 mg/dl (0.2-1.3); Total Protein 5.5 g/dl (6.3-8.2)
== END ==
LOC: OLABP 12:21
PROVIDERS: ATTENDING PHYSICIAN Family Medicine
DX: I71.43 Infrarenal abdominal aortic aneurysm, without rupture (principal); N18.32 Chronic kidney disease, stage 3b; E87.5 Hyperkalemia; R53.1 Weakness; I10 Essential (primary) hypertension; Z86.73 Personal history of transient ischemic attack (TIA), and cerebral infarction without residual deficits; I95.1 Orthostatic hypotension; A08.11 Acute gastroenteropathy due to Norwalk agent
CPT/HCPCS: 36415; 80053; 85025